=== PATIENT | male | born 1960 | race Caucasian/White ===

== ENCOUNTER 2017-03-11 19:20 | Emergency (ER) | payer MEDICARE, MEDICAID ==
--- NOTE | 2017-03-11 20:17 | EDM.PDOC ---
ED HPI GENERAL MEDICAL PROBLEM - General Chief Complaint: Chest Pain Stated Complaint: CHEST HURTS X3 DAYS, [id number] Time Seen by Provider: 03/11/17 20:10 Source of Information: Reports: Patient History Limitations: Reports: No Limitations - History of Present Illness INITIAL COMMENTS - FREE TEXT/NARRATIVE: This 56 yo male patient reports to the ED with chest pressure. The patient reports he started to feel sick about 2 weeks ago. The patient was seen in the clinic 1 week ago and given a Z-pack. The patient had no improvement in his symptoms with the antibiotics, so came into the ED tonight for continued evaluation and management. The patient has a history of an UT and CA. Onset: Gradual Duration: Week(s): (2), Constant, Getting Worse Location: Reports: Chest Quality: Reports: Pressure Severity: Moderate Improves with: Reports: None Worsens with: Reports: None Associated Symptoms: Reports: Cough, Shortness of Breath Anterior Chest Pain Score (Numeric/FACES): 5 - Related Data Allergies Allergy/AdvReac Type Severity Reaction Status Date / Time Penicillins Allergy Hives Verified 03/11/17 20:39 Home Meds: Home Meds Aspirin [Halfprin] 325 mg PO DAILY 01/30/14 [History] Montelukast [Singulair] 10 mg PO BEDTIME 01/30/14 [History] [place]-3 Fatty Acids [Fish Oil] 2,000 mg PO BID 01/30/14 [History] ALPRAZolam [Xanax] 0.5 mg PO BEDTIME 09/29/14 [History] Baclofen [Lioresal] 10 mg PO BIDMEALS 09/29/14 [History] Digoxin 1.5 tab PO DAILY 09/29/14 [History] Carvedilol [Carvedilol] 25 mg PO BID 12/23/14 [History] Losartan Potassium 25 mg PO DAILY 12/23/14 [History] Roflumilast [Daliresp] 500 mcg PO DAILY 12/23/14 [History] Arformoterol [Brovana] 15 mcg INH BID 11/28/15 [History] Budesonide [Pulmicort] 0.5 mg INH BID 11/28/15 [History] Isosorbide Mononitrate [Isosorbide Mononitrate ER] 30 mg PO DAILY 11/28/15 [ History] Mometasone Furoate [Nasonex] 2 sprays NASBOTH BID 11/28/15 [History] Nitroglycerin [Nitrostat] 0.4 mg SL ASDIRECTED 11/28/15 [History] Tiotropium [place] [Spiriva Respimat] 1 puff INH DAILY 11/28/15 [History] Topiramate [Topamax] 100 mg PO BEDTIME 11/28/15 [History] atorvaSTATin [Lipitor] 40 mg PO BEDTIME 11/28/15 [History] Amiodarone [Cordarone] 200 mg PO DAILY 07/02/16 [History] Past Medical History Cardiovascular History: Reports: Automatic Implantable Cardioverter Defibrillators, CAD, Hypertension, [place], Pacemaker, PTCA, Stents Respiratory History: Reports: COPD, Other (See Below) Other Respiratory History: lung mass to be biopsied this week. Other Endocrine/Metabolic History: states was told blood sugars are ? prediabetic - Past Surgical History Other Musculoskeletal Surgeries/Procedures:: states legs feel weak and unable to stand for long periods of time. Social & Family History - Tobacco Use Smoking Status *Q: Current Some Day Smoker Years of Tobacco use: 30 Packs/Tins Daily: 0.2 Used Tobacco, but Quit: No Month Tobacco Last Used: december Second Hand Smoke Exposure: Yes - Caffeine Use Caffeine Use: Reports: Coffee - Alcohol Use Days Per Week of Alcohol Use: 0 - Recreational Drug Use Recreational Drug Use: No ED ROS GENERAL - Review of Systems Review Of Systems: ROS reveals no pertinent complaints other than HPI. ED EXAM, GENERAL - Physical Exam Exam: See Below Exam Limited By: No Limitations General Appearance: Alert, WD/WN, Moderate Distress Eye Exam: Bilateral Eye: EOMI, Normal Inspection, PERRL Ears: Normal External Exam, Normal Canal, Hearing Grossly Normal, Normal TMs Nose: Normal Inspection, Normal Mucosa, No Blood Throat/Mouth: Normal Inspection, Normal Lips, Normal Teeth, Normal Gums, Normal Oropharynx, Normal Voice, No Airway Compromise Head: Atraumatic, Normocephalic Neck: Normal Inspection, Supple, Non-Tender, Full Range of Motion Respiratory/Chest: No Respiratory Distress, No Accessory Muscle Use, Chest Non- Tender, Rhonchi Cardiovascular: Normal Peripheral Pulses, Regular Rate, Rhythm, No Edema, No Gallop, No JVD, No Murmur, No Rub GI/Abdominal: Normal Bowel Sounds, Soft, Non-Tender, No Organomegaly, No Distention, No Abnormal Bruit, No Mass (Male) Exam: Deferred Rectal (Males) Exam: Deferred Back Exam: Normal Inspection, Full Range of Motion, NT Extremities: Normal Inspection, Normal Range of Motion, Non-Tender, Normal Capillary Refill, No Pedal Edema Neurological: Alert, Oriented, CN II-XII Intact, Normal Cognition, Normal Gait, Normal Reflexes, No Motor/Sensory Deficits Psychiatric: Normal Affect, Normal Mood Skin Exam: Warm, Dry, Intact, Normal Color, No Rash Lymphatic: No Adenopathy Course - Vital Signs Last Recorded V/S: Last Vital Signs Temp 37.0 C 03/11/17 20:40 Pulse 75 03/11/17 20:40 Resp 16 03/11/17 20:40 BP 115/69 03/11/17 20:40 Pulse Ox 94 L 03/11/17 20:40 - Orders/Labs/Meds Orders: Active Orders 24 hr Category Date Time Status EKG Documentation Completion [RC] STAT Care 03/11/17 20:01 Active cefTRIAXone [Rocephin] 1 gm Med 03/11/17 21:16 Ordered Sodium Chloride 0.9% [Normal Saline] 50 ml IV ONETIME Medication Orders Ceftriaxone Sodium 1 gm/ (Sodium Chloride) 50 mls @ 100 mls/hr IV ONETIME ONE Stop: 03/11/17 21:45 Labs: Laboratory Tests 03/11/17 03/11/17 Range/Units 20:12 20:12 WBC 5.8 (5.0-10.0) 10^3/uL RBC 3.99 L (4.6-6.2) 10^6/uL Hgb 13.1 L (14.0-18.0) g/dL Hct 38.0 L (40.0-54.0) % MCV 95.2 (80-100) fL MCH 32.8 (27.0-34.0) pg MCHC 34.5 (33.0-35.0) g/dL Plt Count 106 L (150-450) 10^3/uL Neut % (Auto) 56.8 (42.2-75.2) % Lymph % (Auto) 27.6 (20.5-50.1) % [place] % (Auto) 10.8 H (2-8) % Eos % (Auto) 4.3 H (1.0-3.0) % Baso % (Auto) 0.5 (0.0-1.0) % Sodium 136 (135-145) mmol/L Potassium 3.5 L (3.6-5.0) mmol/L Chloride 103 (101-111) mmol/L Carbon Dioxide 24.0 (21.0-31.0) mmol/L Anion Gap 12.5 BUN 12 (7-18) mg/dL Creatinine 0.9 (0.6-1.3) mg/dL Est Cr Clr Drug Dosing TNP Estimated GFR (MDRD) > 60 BUN/Creatinine Ratio 13.33 Glucose 78 (74-105) mg/dL Calcium 8.9 (8.4-10.2) mg/dl Total Bilirubin 0.6 (0.2-1.0) mg/dL AST 21 (10-42) IU/L ALT 30 (10-60) IU/L Alkaline Phosphatase 90 (42-121) IU/L Troponin I 0.02 (0.00-0.02) ng/ml Total Protein 6.6 L (6.7-8.2) g/dl Albumin 3.9 (3.2-5.5) g/dl Globulin 2.7 Albumin/Globulin Ratio 1.44 Meds: Medications Generic Name Dose Route Start Last Admin Trade Name Freq PRN Reason Stop Dose Admin Ceftriaxone Sodium 1 gm/ 50 mls @ 100 mls/hr 03/11/17 21:16 Sodium Chloride IV 03/11/17 21:45 ONETIME ONE Departure - Departure Time of Disposition: 21:19 Disposition: Home, Self-Care 01 Condition: fair Clinical Impression: Community acquired pneumonia Instructions: Community-Acquired Pneumonia, Adult, [id number] Forms: ED Department Discharge Care Plan Goals: The patient was advised of the examination, lab, EKG and x-ray results during the visit. The patient was given IV Rocephin while in the ED. The patient was discharged with a script for Keflex (500 mg) #20 to take 1 by mouth 2 times per day for 10 days. If the patient has any additional symptoms or concerns, the patient should follow-up with his primary care facility or return to the emergency department. - My Orders Last 24 Hours: My Active Orders 03/11/17 20:01 EKG Documentation Completion [RC] STAT 03/11/17 21:16 cefTRIAXone [Rocephin] 1 gm Sodium Chloride 0.9% [Normal Saline] 50 ml IV ONETIME - Assessment/Plan Last 24 Hours: My Active Orders 03/11/17 20:01 EKG Documentation Completion [RC] STAT 03/11/17 21:16 cefTRIAXone [Rocephin] 1 gm Sodium Chloride 0.9% [Normal Saline] 50 ml IV ONETIME
[2017-03-11 20:38] LABS: CHLORIDE,CL 103 mmol/L (101-111); SODIUM,NA 136 mmol/L (135-145)
[2017-03-11 20:41] VITALS: BP 115/69
[2017-03-11] MEDS ORDERED: cefTRIAXone 1 GM in Sodium Chloride 0.9% 50 ML IV ONE (21:16)
--- NOTE | 2017-03-12 14:54 | EKG ---
03/11/2017- ISAIAS STAPLES - EKG per my reading shows atrial paced rhythm with left bundle-branch block. [facility] /[id number]
== END 2017-03-11 21:51 | disposition home or self-care (01) ==
LOC: DL.ED 19:20
DX: J18.9 Pneumonia, unspecified organism (principal); F17.210 Nicotine dependence, cigarettes, uncomplicated; J44.9 Chronic obstructive pulmonary disease, unspecified; I25.810 Atherosclerosis of coronary artery bypass graft(s) without angina pectoris; Z95.0 Presence of cardiac pacemaker; Z79.82 Long term (current) use of aspirin; Z79.899 Other long term (current) drug therapy; Z88.0 Allergy status to penicillin; Z95.5 Presence of coronary angioplasty implant and graft
CPT/HCPCS: 36415; 71010; 80053; 84484; 85025; 93005; 93010; 96365; 99285; J0696; J7050; 99284

== ENCOUNTER 2017-09-29 20:18 | Emergency (ER) | payer MEDICARE, MEDICAID ==
[2017-09-29] MEDS ORDERED: Sodium Chloride 0.9% 1,000 ML IV ONE (20:33)
[2017-09-29 21:11] LABS: CHLORIDE,CL 103 mmol/L (101-111); SODIUM,NA 134 mmol/L (135-145)
[2017-09-29 21:41] VITALS: BP 96/71
--- NOTE | 2017-09-29 22:34 | EDM.PDOC ---
ED HPI GENERAL MEDICAL PROBLEM - General Chief Complaint: Gastrointestinal Problem Stated Complaint: PUKING,TEMP. [id number] Time Seen by Provider: 09/29/17 20:20 Source of Information: Reports: Patient, Family History Limitations: Reports: No Limitations - History of Present Illness INITIAL COMMENTS - FREE TEXT/NARRATIVE: C/O nausea vomiting with fever today. Lung CA with chemo- with Opdivo, patient notes has had 6 previous treatment without these symptoms. Fever since this afternoon with 100.8 [employer] reports calling chemo nurse and was told symptoms not from chemo and needed to be evaluated. - Related Data Allergies Allergy/AdvReac Type Severity Reaction Status Date / Time doxycycline Allergy Headache Verified 09/29/17 20:23 Penicillins Allergy Hives Verified 09/29/17 20:23 Home Meds: Home Meds Aspirin [Halfprin] 325 mg PO DAILY 01/30/14 [History] Montelukast [Singulair] 10 mg PO BEDTIME 01/30/14 [History] [place]-3 Fatty Acids [Fish Oil] 2,000 mg PO BID 01/30/14 [History] ALPRAZolam [Xanax] 0.5 mg PO BEDTIME 09/29/14 [History] Baclofen [Lioresal] 10 mg PO BIDMEALS 09/29/14 [History] Digoxin 1.5 tab PO DAILY 09/29/14 [History] Carvedilol [Carvedilol] 25 mg PO BID 12/23/14 [History] Losartan Potassium 25 mg PO DAILY 12/23/14 [History] Roflumilast [Daliresp] 500 mcg PO DAILY 12/23/14 [History] Arformoterol [Brovana] 15 mcg INH BID 11/28/15 [History] Budesonide [Pulmicort] 0.5 mg INH BID 11/28/15 [History] Isosorbide Mononitrate [Isosorbide Mononitrate ER] 30 mg PO DAILY 11/28/15 [ History] Mometasone Furoate [Nasonex] 2 sprays NASBOTH BID 11/28/15 [History] Nitroglycerin [Nitrostat] 0.4 mg SL ASDIRECTED 11/28/15 [History] Tiotropium [place] [Spiriva Respimat] 1 puff INH DAILY 11/28/15 [History] Topiramate [Topamax] 100 mg PO BEDTIME 11/28/15 [History] atorvaSTATin [Lipitor] 40 mg PO BEDTIME 11/28/15 [History] Amiodarone [Cordarone] 200 mg PO DAILY 07/02/16 [History] Past Medical History - Past Health History Medical/Surgical History: Denies Medical/Surgical History Cardiovascular History: Reports: Automatic Implantable Cardioverter Defibrillators, CAD, Hypertension, [place], Pacemaker, PTCA, Stents Respiratory History: Reports: COPD, Other (See Below) Other Respiratory History: lung mass to be biopsied this week. Other Endocrine/Metabolic History: states was told blood sugars are ? prediabetic Oncologic (Cancer) History: Reports: Lung - Past Surgical History Other Musculoskeletal Surgeries/Procedures:: states legs feel weak and unable to stand for long periods of time. Social & Family History - Tobacco Use Smoking Status *Q: Current Every Day Smoker Years of Tobacco use: 51 Packs/Tins Daily: 1.5 Used Tobacco, but Quit: No Month Tobacco Last Used: december Second Hand Smoke Exposure: Yes - Caffeine Use Caffeine Use: Reports: Coffee - Alcohol Use Days Per Week of Alcohol Use: 0 - Recreational Drug Use Recreational Drug Use: No ED ROS GENERAL - Review of Systems Review Of Systems: See Below Constitutional: Reports: Fever, Chills, Decreased Appetite HEENT: Reports: No Symptoms Respiratory: Reports: Shortness of Breath, Cough Cardiovascular: Reports: No Symptoms GI/Abdominal: Reports: Vomiting (multiple times since afternoon) : Reports: No Symptoms Musculoskeletal: Reports: No Symptoms Skin: Reports: No Symptoms Neurological: Reports: No Symptoms ED EXAM, RENAL/ - Physical Exam Exam: See Below Exam Limited By: No Limitations General Appearance: Alert, Mild Distress, Thin, Other (strong odor stale tobacco ) Eye Exam: Bilateral Eye: EOMI, Normal Fundi Ears: Normal External Exam Nose: Normal Inspection Throat/Mouth: Normal Inspection, Other (dry) Head: Atraumatic, Normocephalic Neck: Normal Inspection Respiratory/Chest: No Respiratory Distress, Decreased Breath Sounds Cardiovascular: Normal Peripheral Pulses, Regular Rate, Rhythm GI/Abdominal: Normal Bowel Sounds, Soft, Non-Tender Back Exam: Normal Inspection Extremities: Normal Inspection, Normal Range of Motion Neurological: Alert, Oriented, Normal Cognition, Other (unsteady, stand by assist) Psychiatric: Normal Affect, Normal Mood Skin Exam: Warm, Dry, Intact, No Rash, Increased Warmth. No: Erythema Course - Vital Signs Last Recorded V/S: Last Vital Signs Temp 99.1 F 09/29/17 21:40 Pulse 71 09/29/17 21:40 Resp 16 09/29/17 21:40 BP 96/71 09/29/17 21:40 Pulse Ox 96 09/29/17 21:40 - Orders/Labs/Meds Orders: Active Orders 24 hr Category Date Time Status EKG 12 Lead [EKG Documentation Completion] [RC] URGENT Care 09/29/17 20:24 Active CULTURE BLOOD [BC] Stat Lab 09/29/17 20:39 Received CULTURE BLOOD [BC] Stat Lab 09/29/17 20:53 Received Blood Culture x2 Reflex Set [OM.PC] Stat Oth 09/29/17 20:24 Ordered Labs: Laboratory Tests 09/29/17 09/29/17 09/29/17 Range/Units 20:39 20:39 20:39 WBC 9.4 (5.0-10.0) 10^3/uL RBC 4.63 (4.6-6.2) 10^6/uL Hgb 15.1 D (14.0-18.0) g/dL Hct 43.8 (40.0-54.0) % MCV 94.6 (80-100) fL MCH 32.6 (27.0-34.0) pg MCHC 34.5 (33.0-35.0) g/dL Plt Count 113 L (150-450) 10^3/uL Neut % (Auto) 89.7 H (42.2-75.2) % Lymph % (Auto) 3.9 L (20.5-50.1) % [place] % (Auto) 4.9 (2-8) % Eos % (Auto) 1.3 (1.0-3.0) % Baso % (Auto) 0.2 (0.0-1.0) % Sodium 134 L (135-145) mmol/L Potassium 3.8 (3.6-5.0) mmol/L Chloride 103 (101-111) mmol/L Carbon Dioxide 22.0 (21.0-31.0) mmol/L Anion Gap 12.8 BUN 17 (7-18) mg/dL Creatinine 1.0 (0.6-1.3) mg/dL Est Cr Clr Drug Dosing 89.46 mL/min Estimated GFR (MDRD) > 60 BUN/Creatinine Ratio 17.00 Glucose 95 (74-105) mg/dL Lactic Acid (0.5-2.2) mmol/L Calcium 9.0 (8.4-10.2) mg/dl Magnesium 1.9 (1.8-2.5) mg/dL Total Bilirubin 0.9 (0.2-1.0) mg/dL AST 26 (10-42) IU/L ALT 31 (10-60) IU/L Alkaline Phosphatase 81 (42-121) IU/L B-Natriuretic Peptide 135 H (0-100) pg/ml Total Protein 7.0 (6.7-8.2) g/dl Albumin 4.0 (3.2-5.5) g/dl Globulin 3.0 Albumin/Globulin Ratio 1.33 Amylase 34 (28-100) U/L Lipase 21 L (22-51) U/L Urine Color (YELLOW) Urine Appearance (CLEAR) Urine pH (5.0-9.0) Ur Specific [place] (1.005-1.030) Urine Protein (NEGATIVE) Urine Glucose (UA) (NEGATIVE) Urine Ketones (NEGATIVE) Urine Occult Blood (NEGATIVE) Urine Nitrite (NEGATIVE) Urine Bilirubin (NEGATIVE) Urine Urobilinogen (0.2-1.0) mg/dL Ur Leukocyte Esterase (NEGATIVE) Urine RBC /HPF Urine WBC (0-5/HPF) /HPF Ur Epithelial Cells /HPF Urine Bacteria (0-FEW/HPF) /HPF Digoxin 2.0 (0-2.5) ng/ml 09/29/17 09/29/17 Range/Units 20:39 21:37 WBC (5.0-10.0) 10^3/uL RBC (4.6-6.2) 10^6/uL Hgb (14.0-18.0) g/dL Hct (40.0-54.0) % MCV (80-100) fL MCH (27.0-34.0) pg MCHC (33.0-35.0) g/dL Plt Count (150-450) 10^3/uL Neut % (Auto) (42.2-75.2) % Lymph % (Auto) (20.5-50.1) % [place] % (Auto) (2-8) % Eos % (Auto) (1.0-3.0) % Baso % (Auto) (0.0-1.0) % Sodium (135-145) mmol/L Potassium (3.6-5.0) mmol/L Chloride (101-111) mmol/L Carbon Dioxide (21.0-31.0) mmol/L Anion Gap BUN (7-18) mg/dL Creatinine (0.6-1.3) mg/dL Est Cr Clr Drug Dosing mL/min Estimated GFR (MDRD) BUN/Creatinine Ratio Glucose (74-105) mg/dL Lactic Acid 0.8 (0.5-2.2) mmol/L Calcium (8.4-10.2) mg/dl Magnesium (1.8-2.5) mg/dL Total Bilirubin (0.2-1.0) mg/dL AST (10-42) IU/L ALT (10-60) IU/L Alkaline Phosphatase (42-121) IU/L B-Natriuretic Peptide (0-100) pg/ml Total Protein (6.7-8.2) g/dl Albumin (3.2-5.5) g/dl Globulin Albumin/Globulin Ratio Amylase (28-100) U/L Lipase (22-51) U/L Urine Color Yellow (YELLOW) Urine Appearance Slightly cloudy (CLEAR) Urine pH 8.0 (5.0-9.0) Ur Specific [place] 1.015 (1.005-1.030) Urine Protein Negative (NEGATIVE) Urine Glucose (UA) Negative (NEGATIVE) Urine Ketones Negative (NEGATIVE) Urine Occult Blood Negative (NEGATIVE) Urine Nitrite Negative (NEGATIVE) Urine Bilirubin Negative (NEGATIVE) Urine Urobilinogen 1.0 (0.2-1.0) mg/dL Ur Leukocyte Esterase Negative (NEGATIVE) Urine RBC 0-5 /HPF Urine WBC 0-5 (0-5/HPF) /HPF Ur Epithelial Cells Rare /HPF Urine Bacteria Rare (0-FEW/HPF) /HPF Digoxin (0-2.5) ng/ml Meds: Medications Discontinued Medications Generic Name Dose Route Start Last Admin Trade Name Freq PRN Reason Stop Dose Admin Sodium Chloride 1,000 mls @ 100 mls/hr 09/29/17 20:33 09/29/17 20:37 Normal Saline IV 09/30/17 06:32 100 mls/hr .BOLUS ONE Administration - Radiology Interpretation Free Text/Narrative:: CXR: No pneumonia Departure - Departure Time of Disposition: 22:34 Disposition: DC/Tfer to Acute Hospital 02 Condition: Undetermined Clinical Impression: Patient on antineoplastic chemotherapy regimen, COPD (chronic obstructive pulmonary disease) with chronic bronchitis Lung cancer Qualifiers: Laterality: unspecified laterality Lung location: unspecified part of lung Qualified Code(s): C34.90 - Malignant neoplasm of unspecified part of unspecified bronchus or lung Vomiting Qualifiers: Vomiting type: unspecified Vomiting Intractability: non-intractable Nausea presence: with nausea Qualified Code(s): R11.2 - Nausea with vomiting, unspecified - Discharge Information Referrals: PCP,Unobtain [Primary Care Provider] - Forms: ED Department Discharge - My Orders Last 24 Hours: My Active Orders 09/29/17 20:24 EKG 12 Lead [EKG Documentation Completion] [RC] URGENT Blood Culture x2 Reflex Set [OM.PC] Stat 09/29/17 20:39 CULTURE BLOOD [BC] Stat 09/29/17 20:53 CULTURE BLOOD [BC] Stat - Assessment/Plan Last 24 Hours: My Active Orders 09/29/17 20:24 EKG 12 Lead [EKG Documentation Completion] [RC] URGENT Blood Culture x2 Reflex Set [OM.PC] Stat 09/29/17 20:39 CULTURE BLOOD [BC] Stat 09/29/17 20:53 CULTURE BLOOD [BC] Stat
--- NOTE | 2017-09-30 11:32 | EKG ---
09/29/2017- ISAIAS STAPLES - EKG done on a 56-year-old male showing sinus rhythm, heart rate of 70 beats per minute, left bundle branch block noted, which is present from previous EKG. [facility] /[id number]
== END 2017-09-29 22:59 ==
LOC: DL.ED 20:18
DX: J44.9 Chronic obstructive pulmonary disease, unspecified (principal); C34.90 Malignant neoplasm of unspecified part of unspecified bronchus or lung; F17.210 Nicotine dependence, cigarettes, uncomplicated; Z88.1 Allergy status to other antibiotic agents; Z88.0 Allergy status to penicillin; Z79.82 Long term (current) use of aspirin; Z79.899 Other long term (current) drug therapy; R06.02 Shortness of breath
CPT/HCPCS: 36415; 71010; 80053; 80162; 81001; 82150; 83605; 83690; 83735; 83880; 85025; 87040; 87804; 93005; 93010; 96360; 96361; 99283; 99284; J7030

== ENCOUNTER 2017-10-17 12:07 | Emergency (ER) | payer MEDICARE, MEDICAID ==
[2017-10-17 12:39] VITALS: BP 99/65
[2017-10-17] MEDS ORDERED: Sodium Chloride 0.9% 1,000 ML IV ONE (12:55)
[2017-10-17] MEDS ORDERED: Metoclopramide 10 MG/2 ML SDV IVPUSH ONE (12:55)
--- NOTE | 2017-10-17 12:58 | EDM.PDOC ---
ED HPI GENERAL MEDICAL PROBLEM - General Chief Complaint: Respiratory Problem Stated Complaint: STILL NOT FELLING WELL Time Seen by Provider: 10/17/17 12:50 Source of Information: Reports: Patient History Limitations: Reports: No Limitations - History of Present Illness INITIAL COMMENTS - FREE TEXT/NARRATIVE: This 57 yo male patient reports to the ED with a continued cough, nausea/ vomiting, and generalized weakness. The patient reports he was seen in the [facility] on Wednesday and was started on antibiotics (omnicef). The patient has not been eating well due to not feeling well. The patient reports he was sent to [place] just after [place], but discharged in a short time. The patient reports he has not been feeling much better. The patient has a history of previous heart attacks and lung cancer. Duration: Week(s):, Constant, Getting Worse Location: Reports: Chest Severity: Moderate Improves with: Reports: None Worsens with: Reports: None Associated Symptoms: Reports: cough w sputum, Nausea/Vomiting, Shortness of Breath, Weakness Treatments FRY COOK: Reports: Other Medication(s) (Omnicef) Headache Pain Score (Numeric/FACES): 5 - Related Data Allergies Allergy/AdvReac Type Severity Reaction Status Date / Time doxycycline Allergy Headache Verified 10/17/17 12:25 Penicillins Allergy Hives Verified 10/17/17 12:25 Home Meds: Home Meds Aspirin [Halfprin] 325 mg PO DAILY 01/30/14 [History] Montelukast [Singulair] 10 mg PO BEDTIME 01/30/14 [History] [place]-3 Fatty Acids [Fish Oil] 2,000 mg PO BID 01/30/14 [History] ALPRAZolam [Xanax] 0.5 mg PO BEDTIME 09/29/14 [History] Digoxin 1.5 tab PO DAILY 09/29/14 [History] Carvedilol [Carvedilol] 25 mg PO BID 12/23/14 [History] Losartan Potassium 25 mg PO DAILY 12/23/14 [History] Roflumilast [Daliresp] 500 mcg PO DAILY 12/23/14 [History] Arformoterol [Brovana] 15 mcg INH BID 11/28/15 [History] Budesonide [Pulmicort] 0.5 mg INH BID 11/28/15 [History] Isosorbide Mononitrate [Isosorbide Mononitrate ER] 30 mg PO DAILY 11/28/15 [ History] Mometasone Furoate [Nasonex] 2 sprays NASBOTH BID 11/28/15 [History] Nitroglycerin [Nitrostat] 0.4 mg SL ASDIRECTED 11/28/15 [History] Tiotropium Early [Spiriva Respimat] 1 puff INH DAILY 11/28/15 [History] Topiramate [Topamax] 100 mg PO BEDTIME 11/28/15 [History] atorvaSTATin [Lipitor] 40 mg PO BEDTIME 11/28/15 [History] Amiodarone [Cordarone] 200 mg PO DAILY 07/02/16 [History] Benzonatate [Benzonatate] 200 mg PO ASDIRECTED PRN 10/17/17 [History] Cefdinir [Omnicef] 300 mg PO DAILY 10/17/17 [History] Ciprofloxacin/Dexamethasone [Ciprodex Otic Susp] 1 drop EARRT ASDIRECTED [History] Nivolumab [Opdivo] 0 mg ASDIRECTED 10/17/17 [History] methylPREDNISolone [Medrol] 1 tab PO ASDIRECTED 10/17/17 [History] Past Medical History - Past Health History Medical/Surgical History: Denies Medical/Surgical History HEENT History: Reports: Other (See Below) Other HEENT History: pusy fluid in right ear Cardiovascular History: Reports: Automatic Implantable Cardioverter Defibrillators, CAD, High Cholesterol, Hypertension, [place], Pacemaker, PTCA, Stents Respiratory History: Reports: COPD Other Respiratory History: lung cancer Other Endocrine/Metabolic History: states was told blood sugars are ? prediabetic Oncologic (Cancer) History: Reports: Lung - Infectious Disease History Infectious Disease History: Reports: Chicken Pox, Measles, Mumps, Shingles - Past Surgical History Other Musculoskeletal Surgeries/Procedures:: states legs feel weak and unable to stand for long periods of time. Social & Family History - Tobacco Use Smoking Status *Q: Current Every Day Smoker Years of Tobacco use: 52 Packs/Tins Daily: 1 Used Tobacco, but Quit: No Month Tobacco Last Used: december Second Hand Smoke Exposure: Yes - Caffeine Use Caffeine Use: Reports: Coffee - Alcohol Use Days Per Week of Alcohol Use: 0 - Recreational Drug Use Recreational Drug Use: No ED ROS GENERAL - Review of Systems Review Of Systems: ROS reveals no pertinent complaints other than HPI. ED EXAM, GENERAL - Physical Exam Exam: See Below Exam Limited By: No Limitations General Appearance: Alert, WD/WN, Moderate Distress Eye Exam: Bilateral Eye: EOMI, Normal Inspection, PERRL Ears: Normal External Exam, Normal Canal, Hearing Grossly Normal, Normal TMs Nose: Normal Inspection, Normal Mucosa, No Blood Throat/Mouth: Normal Inspection, Normal Lips, Normal Teeth, Normal Gums, Normal Oropharynx, Normal Voice, No Airway Compromise Head: Atraumatic, Normocephalic Neck: Normal Inspection, Supple, Non-Tender, Full Range of Motion Respiratory/Chest: Decreased Breath Sounds (throughout) Cardiovascular: Normal Peripheral Pulses, Regular Rate, Rhythm, No Edema, No Gallop, No JVD, No Murmur, No Rub GI/Abdominal: Normal Bowel Sounds, Soft, Non-Tender, No Organomegaly, No Distention, No Abnormal Bruit, No Mass (Male) Exam: Deferred Rectal (Males) Exam: Deferred Back Exam: Normal Inspection, Full Range of Motion, NT Extremities: Normal Inspection, Normal Range of Motion, Non-Tender, Normal Capillary Refill, No Pedal Edema Neurological: Alert, Oriented, CN II-XII Intact, Normal Cognition, Normal Gait, Normal Reflexes, No Motor/Sensory Deficits Psychiatric: Normal Affect, Normal Mood Skin Exam: Warm, Dry, Intact, Normal Color, No Rash Lymphatic: No Adenopathy Course - Vital Signs Last Recorded V/S: Last Vital Signs Temp 36.8 C 10/17/17 12:28 Pulse 76 10/17/17 12:28 Resp 20 10/17/17 12:28 BP 99/65 10/17/17 12:28 Pulse Ox 92 L 10/17/17 12:28 - Orders/Labs/Meds Orders: Active Orders 24 hr Category Date Time Status Chest 2V [CR] Urgent Exams 10/17/17 12:42 Taken CULTURE BLOOD [BC] Stat Lab 10/17/17 12:58 Received Sodium Chloride 0.9% [Normal Saline] 1,000 ml Med 10/17/17 12:55 Active IV .BOLUS cefTRIAXone [Rocephin] Med 10/17/17 13:48 Once 1 gm IVPUSH ONETIME ONE Medication Orders Sodium Chloride (Normal Saline) 1,000 mls @ 250 mls/hr IV .BOLUS ONE Stop: 10/17/17 16:54 Last Admin: 10/17/17 13:03 Dose: 250 mls/hr Labs: Laboratory Tests 10/17/17 10/17/17 10/17/17 Range/Units 12:58 12:58 12:58 WBC 6.6 (5.0-10.0) 10^3/uL RBC 4.47 L (4.6-6.2) 10^6/uL Hgb 14.5 (14.0-18.0) g/dL Hct 41.9 (40.0-54.0) % MCV 93.7 (80-100) fL MCH 32.4 (27.0-34.0) pg MCHC 34.6 (33.0-35.0) g/dL Plt Count 107 L (150-450) 10^3/uL Neut % (Auto) 80.2 H (42.2-75.2) % Lymph % (Auto) 8.2 L (20.5-50.1) % [place] % (Auto) 10.9 H (2-8) % Eos % (Auto) 0.2 L (1.0-3.0) % Baso % (Auto) 0.5 (0.0-1.0) % Sodium 130 L (135-145) mmol/L Potassium 4.0 (3.6-5.0) mmol/L Chloride 99 L (101-111) mmol/L Carbon Dioxide 21.0 (21.0-31.0) mmol/L Anion Gap 14.0 BUN 11 (7-18) mg/dL Creatinine 0.9 (0.6-1.3) mg/dL Est Cr Clr Drug Dosing TNP Estimated GFR (MDRD) > 60 BUN/Creatinine Ratio 12.22 Glucose 90 (74-105) mg/dL Lactic Acid 0.9 (0.5-2.2) mmol/L Calcium 9.1 (8.4-10.2) mg/dl Total Bilirubin 0.7 (0.2-1.0) mg/dL AST 31 (10-42) IU/L ALT 32 (10-60) IU/L Alkaline Phosphatase 75 (42-121) IU/L Total Protein 7.1 (6.7-8.2) g/dl Albumin 3.9 (3.2-5.5) g/dl Globulin 3.2 Albumin/Globulin Ratio 1.22 Meds: Medications Generic Name Dose Route Start Last Admin Trade Name Lonnieq PRN Reason Stop Dose Admin Sodium Chloride 1,000 mls @ 250 mls/hr 10/17/17 12:55 10/17/17 13:03 Normal Saline IV 10/17/17 16:54 250 mls/hr .BOLUS ONE Administration Discontinued Medications Generic Name Dose Route Start Last Admin Trade Name Lonnieq PRN Reason Stop Dose Admin Metoclopramide HCl 10 mg 10/17/17 12:55 10/17/17 13:04 Reglan IVPUSH 10/17/17 12:56 10 mg ONETIME ONE Administration Departure - Departure Time of Disposition: 13:49 Disposition: Home, Self-Care 01 Condition: Fair Clinical Impression: Bronchitis, COPD (chronic obstructive pulmonary disease) with chronic bronchitis - Discharge Information Instructions: Chronic Obstructive Pulmonary Disease Exacerbation, [id number] , Acute Bronchitis, [id number] Forms: ED Department Discharge Care Plan Goals: The patient and friend were advised of the examination, lab and x-ray results during the visit. The patient was given an IV dose of Rocephin and Zofran while in the ED. The patient was encouraged to take his antibiotic (Omnicef), steroid (Medrol Dose Pack) and Tesalon Pearls as directed. If the patient has any additional symptoms or concerns, the patient should visit his primary care facility or return to the emergency department. - My Orders Last 24 Hours: My Active Orders 10/17/17 12:42 Chest 2V [CR] Urgent 10/17/17 12:55 Sodium Chloride 0.9% [Normal Saline] 1,000 ml IV .BOLUS 10/17/17 12:58 CULTURE BLOOD [BC] Stat 10/17/17 13:48 cefTRIAXone [Rocephin] 1 gm IVPUSH ONETIME ONE - Assessment/Plan Last 24 Hours: My Active Orders 10/17/17 12:42 Chest 2V [CR] Urgent 10/17/17 12:55 Sodium Chloride 0.9% [Normal Saline] 1,000 ml IV .BOLUS 10/17/17 12:58 CULTURE BLOOD [BC] Stat 10/17/17 13:48 cefTRIAXone [Rocephin] 1 gm IVPUSH ONETIME ONE
[2017-10-17 13:28] LABS: CHLORIDE,CL 99 mmol/L (101-111); SODIUM,NA 130 mmol/L (135-145)
[2017-10-17] MEDS ORDERED: cefTRIAXone 1 GM Vial IVPUSH ONE (13:48)
== END 2017-10-17 14:07 | disposition home or self-care (01) ==
LOC: DL.ED 12:07
DX: J44.9 Chronic obstructive pulmonary disease, unspecified (principal); F17.210 Nicotine dependence, cigarettes, uncomplicated; Z88.8 Allergy status to other drugs, medicaments and biological substances; Z88.0 Allergy status to penicillin; Z79.82 Long term (current) use of aspirin; Z79.899 Other long term (current) drug therapy
CPT/HCPCS: 36415; 71046; 80053; 83605; 85025; 87040; 87804; 96361; 96374; 96375; 99284; J0696; J2765; J7030

== ENCOUNTER 2017-11-27 21:58 | Emergency (ER) | payer MEDICARE, MEDICAID ==
[2017-11-27] MEDS ORDERED: Acetaminophen/HYDROcodone 325-5 MG Tab PO ONE (22:40)
--- NOTE | 2017-11-27 22:46 | EDM.PDOC ---
ED HPI GENERAL MEDICAL PROBLEM - General Chief Complaint: Lower Extremity Injury/Pain Stated Complaint: FEET PAIN [phone] Time Seen by Provider: 11/27/17 22:38 Source of Information: Reports: Patient History Limitations: Reports: No Limitations - History of Present Illness INITIAL COMMENTS - FREE TEXT/NARRATIVE: Patient comes emergency Department today with complaints of bilateral foot pain. Over the past 2 days the patient has complained of the development of arthritis type pain in both of his feet that radiates up to mid tib-fib region bilaterally. He denies any recent falls or trauma to the area. He denies any past history of gout. He is currently being treated with chemotherapy for lung cancer. He recently received his third round of chemotherapy approximately 1 week ago. Continue Neupogen a couple of days ago due to low platelets and white count. He denies any fever or chills. He denies any pain in his calf. He denies any numbness or tingling. He has been taking some Tylenol which really has not done much for his pain topical icy hot or BenGay has helped quite a bit with his pain. He denies any aches or pains in his femur pelvis back or arms. Bilateral Feet Pain Score (Numeric/FACES): 8 - Related Data Allergies Allergy/AdvReac Type Severity Reaction Status Date / Time doxycycline Allergy Headache Verified 11/27/17 22:41 Penicillins Allergy Hives Verified 11/27/17 22:41 Home Meds: Home Meds Aspirin [Halfprin] 325 mg PO DAILY 01/30/14 [History] Montelukast [Singulair] 10 mg PO BEDTIME 01/30/14 [History] [place]-3 Fatty Acids [Fish Oil] 2,000 mg PO BID 01/30/14 [History] ALPRAZolam [Xanax] 0.5 mg PO BEDTIME 09/29/14 [History] Digoxin 1.5 tab PO DAILY 09/29/14 [History] Carvedilol [Carvedilol] 25 mg PO BID 12/23/14 [History] Losartan Potassium 25 mg PO DAILY 12/23/14 [History] Roflumilast [Daliresp] 500 mcg PO DAILY 12/23/14 [History] Arformoterol [Brovana] 15 mcg INH BID 11/28/15 [History] Budesonide [Pulmicort] 0.5 mg INH BID 11/28/15 [History] Isosorbide Mononitrate [Isosorbide Mononitrate ER] 30 mg PO DAILY 11/28/15 [ History] Mometasone Furoate [Nasonex] 2 sprays NASBOTH BID 11/28/15 [History] Nitroglycerin [Nitrostat] 0.4 mg SL ASDIRECTED 11/28/15 [History] Tiotropium Isom [Spiriva Respimat] 1 puff INH DAILY 11/28/15 [History] Topiramate [Topamax] 100 mg PO BEDTIME 11/28/15 [History] atorvaSTATin [Lipitor] 40 mg PO BEDTIME 11/28/15 [History] Amiodarone [Cordarone] 200 mg PO DAILY 07/02/16 [History] Benzonatate [Benzonatate] 200 mg PO ASDIRECTED PRN 10/17/17 [History] Cefdinir [Omnicef] 300 mg PO DAILY 10/17/17 [History] Ciprofloxacin/Dexamethasone [Ciprodex Otic Susp] 1 drop EARRT ASDIRECTED [History] Nivolumab [Opdivo] 0 mg ASDIRECTED 10/17/17 [History] methylPREDNISolone [Medrol] 1 tab PO ASDIRECTED 10/17/17 [History] Past Medical History - Past Health History Medical/Surgical History: Denies Medical/Surgical History HEENT History: Reports: Other (See Below) Other HEENT History: pusy fluid in right ear Cardiovascular History: Reports: Automatic Implantable Cardioverter Defibrillators, CAD, High Cholesterol, Hypertension, [place], Pacemaker, PTCA, Stents Respiratory History: Reports: COPD Other Respiratory History: lung cancer Other Endocrine/Metabolic History: states was told blood sugars are ? prediabetic Oncologic (Cancer) History: Reports: Lung - Infectious Disease History Infectious Disease History: Reports: Chicken Pox, Measles, Mumps, Shingles - Past Surgical History Other Musculoskeletal Surgeries/Procedures:: states legs feel weak and unable to stand for long periods of time. Social & Family History - Tobacco Use Smoking Status *Q: Current Every Day Smoker Years of Tobacco use: 52 Packs/Tins Daily: 1 Used Tobacco, but Quit: No Month Tobacco Last Used: december Second Hand Smoke Exposure: Yes - Caffeine Use Caffeine Use: Reports: Coffee - Alcohol Use Days Per Week of Alcohol Use: 0 - Recreational Drug Use Recreational Drug Use: No Review of Systems - Review of Systems Review Of Systems: ROS reveals no pertinent complaints other than HPI. ED EXAM, GENERAL - Physical Exam Exam: See Below Exam Limited By: No Limitations General Appearance: Alert, WD/WN, Mild Distress Respiratory/Chest: No Respiratory Distress, Lungs Clear Cardiovascular: Normal Peripheral Pulses, Regular Rate, Rhythm Peripheral Pulses: 2+: Radial (L), Radial (R), Posterior Tibial (L), Posterior Tibial (R), Dorsalis Pedis (L), Dorsalis Pedis (R) GI/Abdominal: Normal Bowel Sounds, Soft (Male) Exam: Deferred Rectal (Males) Exam: Deferred Back Exam: Normal Inspection, Full Range of Motion. No: CVA Tenderness (L), CVA Tenderness (R), Decreased Range of Motion, Muscle Spasm Extremities: Normal Inspection, Normal Range of Motion, Normal Capillary Refill. No: Non-Tender (He has generalized tenderness throughout bilateral lower extremities. There is no bruising swelling ecchymosis erythema induration subcutaneous emphysema bony deformity of either of his lower extremities from the knee down. There is no swelling or induration or open areas of his skin. Rather unremarkable lower extremity other than generalized tenderness of the lower extremities.) Course - Vital Signs Last Recorded V/S: Last Vital Signs Temp 37.4 C 11/27/17 22:03 Pulse 88 11/27/17 22:03 Resp 18 11/27/17 22:03 BP 107/56 L 11/27/17 22:03 Pulse Ox 98 11/27/17 22:03 - Orders/Labs/Meds Labs: Laboratory Tests 11/27/17 11/27/17 Range/Units 22:45 22:45 WBC 16.0 H (5.0-10.0) 10^3/uL RBC 4.08 L (4.6-6.2) 10^6/uL Hgb 13.3 L (14.0-18.0) g/dL Hct 38.8 L (40.0-54.0) % MCV 95.1 (80-100) fL MCH 32.6 (27.0-34.0) pg MCHC 34.3 (33.0-35.0) g/dL Plt Count 112 L (150-450) 10^3/uL Neut % (Auto) 82.7 H (42.2-75.2) % Lymph % (Auto) 10.6 L (20.5-50.1) % [place] % (Auto) 4.9 (2-8) % Eos % (Auto) 1.2 (1.0-3.0) % Baso % (Auto) 0.6 (0.0-1.0) % Add Manual Diff Yes Immature Gran # 15 Absolute Seg Neuts 53 Band Neutrophils # 13 Lymphocytes # (Manual) 12 Monocytes # (Manual) 5 Eosinophils # (Manual) 2 Basophils # (Manual) 0 Platelet Estimate Decreased Anisocytosis 1+ slight Sodium 138 (135-145) mmol/L Potassium 3.8 (3.6-5.0) mmol/L Chloride 104 (101-111) mmol/L Carbon Dioxide 27.0 (21.0-31.0) mmol/L Anion Gap 10.8 BUN 14 (7-18) mg/dL Creatinine 1.0 (0.6-1.3) mg/dL Est Cr Clr Drug Dosing 88.38 mL/min Estimated GFR (MDRD) > 60 BUN/Creatinine Ratio 14.00 Glucose 110 H (74-105) mg/dL Uric Acid 5.1 (2.6-7.2) mg/dL Calcium 8.8 (8.4-10.2) mg/dl Total Bilirubin 0.3 (0.2-1.0) mg/dL AST 30 (10-42) IU/L ALT 33 (10-60) IU/L Alkaline Phosphatase 82 (42-121) IU/L Total Protein 6.4 L (6.7-8.2) g/dl Albumin 3.6 (3.2-5.5) g/dl Globulin 2.8 Albumin/Globulin Ratio 1.29 Meds: Medications Discontinued Medications Generic Name Dose Route Start Last Admin Trade Name Freq PRN Reason Stop Dose Admin Hydrocodone Bitart/Acetaminophen 1 tab 11/27/17 22:40 11/27/17 22:48 [place] 325-5 Mg PO 11/27/17 22:41 1 tab ONETIME ONE Administration Gabapentin 300 mg 11/28/17 00:18 11/28/17 00:49 Neurontin PO 11/28/17 00:19 300 mg ONETIME ONE Administration Hydromorphone HCl 1 mg 11/28/17 00:18 11/28/17 00:39 Dilaudid IM 11/28/17 00:19 1 mg ONETIME ONE Administration - Re-Assessments/Exams Free Text/Narrative Re-Assessment/Exam: 11/27/17 22:44 Did explain to the patient that this could be the development of peripheral neuropathy from his chemotherapy. It also could be a hyperuricemic state from his chemotherapy. We will check a couple labs and give him something for pain. 11/28/17 01:17 Hydrocodone without improvement of pain. Dilaudid 1mg IM and Neurontin 300mg PO. with complete resolution of the pain. I explained to the patient that his neuropathy is most likely due to either his chemotherapy or his cancer. It is highly important for him to visit with his primary oncologist on Wednesday due to this new development. I will give him some Neurontin and hydrocodone for pain until that time. Caution sedation especially with these 2 mixed together. He was comfortable with this plan and his questions were answered. Departure - Departure Time of Disposition: 01:14 Disposition: Home, Self-Care 01 Clinical Impression: Neuropathy associated with cancer - Discharge Information Instructions: Neuropathic Pain Forms: ED Department Discharge Additional Instructions: Tylenol as needed for pain. [place], 5/325, 1 tablet every 4-6 hrs prn pain not controlled with above. Caution sedation RX given to the patient. Neurontin, 300mg, 1 tablet twice aday for 1 day, then three times aday as needed for neuropathy in the lower extremities. CAUTION SEDATION. Contact your oncologist on wednesday and update them on the new concerns of neuropathy in your lower extremities. REturn to the ED if new or worsening symptoms. 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 Plan: Tylenol as needed for pain. [place], 5/325, 1 tablet every 4-6 hrs prn pain not controlled with above. Caution sedation RX given to the patient. Neurontin, 300mg, 1 tablet twice aday for 1 day, then three times aday as needed for neuropathy in the lower extremities. CAUTION SEDATION. Contact your oncologist on wednesday and update them on the new concerns of neuropathy in your lower extremities. REturn to the ED if new or worsening symptoms.
[2017-11-27 23:14] LABS: CHLORIDE,CL 104 mmol/L (101-111); SODIUM,NA 138 mmol/L (135-145)
[2017-11-28] MEDS ORDERED: HYDROmorphone 1 MG/ML Syringe IM ONE (00:18)
[2017-11-28] MEDS ORDERED: Gabapentin 300 MG Cap PO ONE (00:18)
[2017-11-28 01:21] VITALS: BP 100/59
== END 2017-11-28 01:25 | disposition home or self-care (01) ==
LOC: DL.ED 21:58
DX: G62.9 Polyneuropathy, unspecified (principal); C34.90 Malignant neoplasm of unspecified part of unspecified bronchus or lung; I10 Essential (primary) hypertension; I25.10 Atherosclerotic heart disease of native coronary artery without angina pectoris; E78.00 Pure hypercholesterolemia, unspecified; J44.9 Chronic obstructive pulmonary disease, unspecified; F17.210 Nicotine dependence, cigarettes, uncomplicated; Z95.810 Presence of automatic (implantable) cardiac defibrillator; Z79.2 Long term (current) use of antibiotics; Z79.82 Long term (current) use of aspirin; Z79.899 Other long term (current) drug therapy; Z88.0 Allergy status to penicillin; Z88.1 Allergy status to other antibiotic agents
CPT/HCPCS: 36415; 80053; 84550; 85025; 96372; 99283; A9270; J1170

== ENCOUNTER 2017-12-11 21:57 | Emergency (ER) | payer MEDICARE, MEDICAID ==
[2017-12-11] MEDS ORDERED: Acetaminophen/oxyCODONE 325-5 MG Tab PO ONE (21:58)
[2017-12-11] MEDS ORDERED: Gabapentin 300 MG Cap PO ONE (21:58)
[2017-12-11 22:13] VITALS: BP 113/73
[2017-12-12 00:22] LABS: CHLORIDE,CL 104 mmol/L (101-111); SODIUM,NA 134 mmol/L (135-145)
[2017-12-12] MEDS ORDERED: Morphine 2 MG/ML Syringe SUBCUT ONE (00:54)
[2017-12-12] MEDS ORDERED: Gabapentin 300 MG Cap PO ONE (00:56)
--- NOTE | 2017-12-12 00:57 | EDM.PDOC ---
ED HPI GENERAL MEDICAL PROBLEM - General Chief Complaint: Lower Extremity Injury/Pain Stated Complaint: FOOT PROBLEM [id number] Time Seen by Provider: 12/11/17 22:30 Source of Information: Reports: Patient, Family, RN Notes Reviewed History Limitations: Reports: No Limitations - History of Present Illness INITIAL COMMENTS - FREE TEXT/NARRATIVE: ED with c/o bilateral leg pain below knees worsening today. Notes pain starting after receiving "immune booster" 2 days ago. Had similar experience last time he had this shot. Patient hx of Lung Cancer and undergoing chemo at present. Hx also COPD and No change in senasation, no fever or chills. Has not noted any weakness. States has a difficult time sleeping anyway and pain is making it impossible. 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 Bilateral Lower Leg Pain Score (Numeric/FACES): 8 - Related Data Allergies Allergy/AdvReac Type Severity Reaction Status Date / Time doxycycline Allergy Headache Verified 12/11/17 22:13 Penicillins Allergy Hives Verified 12/11/17 22:13 Home Meds: Home Meds Aspirin [Halfprin] 325 mg PO DAILY 01/30/14 [History] Montelukast [Singulair] 10 mg PO BEDTIME 01/30/14 [History] [place]-3 Fatty Acids [Fish Oil] 2,000 mg PO BID 01/30/14 [History] ALPRAZolam [Xanax] 0.5 mg PO BEDTIME 09/29/14 [History] Digoxin 1.5 tab PO DAILY 09/29/14 [History] Carvedilol [Carvedilol] 25 mg PO BID 12/23/14 [History] Losartan Potassium 25 mg PO DAILY 12/23/14 [History] Roflumilast [Daliresp] 500 mcg PO DAILY 12/23/14 [History] Arformoterol [Brovana] 15 mcg INH BID 11/28/15 [History] Budesonide [Pulmicort] 0.5 mg INH BID 11/28/15 [History] Isosorbide Mononitrate [Isosorbide Mononitrate ER] 30 mg PO DAILY 11/28/15 [ History] Mometasone Furoate [Nasonex] 2 sprays NASBOTH BID 11/28/15 [History] Nitroglycerin [Nitrostat] 0.4 mg SL ASDIRECTED 11/28/15 [History] Tiotropium [place] [Spiriva Respimat] 1 puff INH DAILY 11/28/15 [History] Topiramate [Topamax] 100 mg PO BEDTIME 11/28/15 [History] atorvaSTATin [Lipitor] 40 mg PO BEDTIME 11/28/15 [History] Amiodarone [Cordarone] 200 mg PO DAILY 07/02/16 [History] Benzonatate [Benzonatate] 200 mg PO ASDIRECTED PRN 10/17/17 [History] Cefdinir [Omnicef] 300 mg PO DAILY 10/17/17 [History] Ciprofloxacin/Dexamethasone [Ciprodex Otic Susp] 1 drop EARRT ASDIRECTED [History] Nivolumab [Opdivo] 0 mg ASDIRECTED 10/17/17 [History] methylPREDNISolone [Medrol] 1 tab PO ASDIRECTED 10/17/17 [History] Past Medical History - Past Health History Medical/Surgical History: Denies Medical/Surgical History HEENT History: Reports: Other (See Below) Other HEENT History: pusy fluid in right ear Cardiovascular History: Reports: Automatic Implantable Cardioverter Defibrillators, CAD, High Cholesterol, Hypertension, [place], Pacemaker, PTCA, Stents Respiratory History: Reports: COPD Other Respiratory History: lung cancer Other Endocrine/Metabolic History: states was told blood sugars are ? prediabetic Oncologic (Cancer) History: Reports: Lung - Infectious Disease History Infectious Disease History: Reports: Chicken Pox, Measles, Mumps, Shingles - Past Surgical History Other Musculoskeletal Surgeries/Procedures:: states legs feel weak and unable to stand for long periods of time. Social & Family History - Tobacco Use Smoking Status *Q: Current Every Day Smoker Years of Tobacco use: 52 Packs/Tins Daily: 10 Used Tobacco, but Quit: No Month Tobacco Last Used: december Second Hand Smoke Exposure: Yes - Caffeine Use Caffeine Use: Reports: Coffee, Soda - Alcohol Use Days Per Week of Alcohol Use: 0 - Recreational Drug Use Recreational Drug Use: No Review of Systems - Review of Systems Review Of Systems: ROS reveals no pertinent complaints other than HPI. ED EXAM, GENERAL - Physical Exam Exam: See Below Exam Limited By: No Limitations General Appearance: Alert, Mild Distress Eye Exam: Bilateral Eye: EOMI Ears: Normal External Exam, Normal TMs Nose: Normal Inspection, Clear Rhinorrhea Throat/Mouth: Normal Inspection, Normal Lips, Normal Voice Head: Atraumatic, Normocephalic Neck: Normal Inspection, Supple, Non-Tender, Full Range of Motion Respiratory/Chest: No Respiratory Distress, Lungs Clear Cardiovascular: Normal Peripheral Pulses, Regular Rate, Rhythm, No Edema Peripheral Pulses: 2+: Posterior Tibial (L), Posterior Tibial (R), Dorsalis Pedis (L), Dorsalis Pedis (R) GI/Abdominal: Normal Bowel Sounds, Soft Back Exam: Full Range of Motion Extremities: Normal Inspection, Leg Pain (bilateral lower lega pain with palpation, anterior and posterior, greater on jose david area.). No: Pedal Edema, Mottled, Pallor, Redness Neurological: Alert, Oriented, Normal Cognition Psychiatric: Flat Affect Skin Exam: Warm, Dry, Intact, Normal Color. No: Erythema, Jaundice, Petechiae, Rash Course - Vital Signs Last Recorded V/S: Last Vital Signs Temp 99.3 F 12/11/17 22:05 Pulse 84 12/11/17 22:05 Resp 17 12/11/17 22:05 BP 113/73 12/11/17 22:05 Pulse Ox 100 12/11/17 22:05 - Orders/Labs/Meds Labs: Laboratory Tests 12/11/17 12/11/17 Range/Units 23:55 23:55 WBC 29.7 H* (5.0-10.0) 10^3/uL RBC 3.65 L (4.6-6.2) 10^6/uL Hgb 12.1 L (14.0-18.0) g/dL Hct 35.9 L (40.0-54.0) % MCV 98.4 D (80-100) fL MCH 33.2 (27.0-34.0) pg MCHC 33.7 (33.0-35.0) g/dL Plt Count 96 L (150-450) 10^3/uL Add Manual Diff Yes Neutrophils % (Manual) 32 L (42-75) % Band Neutrophils % 0 % Lymphocytes % (Manual) 4 L (20-50) % Atypical Lymphs % 0 % Monocytes % (Manual) 1 L (2-8) % Eosinophils % (Manual) 1 (1-3) % Basophils % (Manual) 0 Differential Comment Platelet Estimate Decreased Poikilocytosis 1+ slight Sodium 134 L (135-145) mmol/L Potassium 4.2 (3.6-5.0) mmol/L Chloride 104 (101-111) mmol/L Carbon Dioxide 22.0 (21.0-31.0) mmol/L Anion Gap 12.2 BUN 19 H (7-18) mg/dL Creatinine 0.9 (0.6-1.3) mg/dL Est Cr Clr Drug Dosing 98.20 mL/min Estimated GFR (MDRD) > 60 BUN/Creatinine Ratio 21.11 Glucose 114 H (74-105) mg/dL Calcium 8.8 (8.4-10.2) mg/dl Total Bilirubin 0.7 (0.2-1.0) mg/dL AST 29 (10-42) IU/L ALT 24 (10-60) IU/L Alkaline Phosphatase 84 (42-121) IU/L Total Protein 6.0 L (6.7-8.2) g/dl Albumin 3.3 (3.2-5.5) g/dl Globulin 2.7 Albumin/Globulin Ratio 1.22 Meds: Medications Discontinued Medications Generic Name Dose Route Start Last Admin Trade Name Pedro PRN Reason Stop Dose Admin Gabapentin 300 mg 12/12/17 00:56 12/12/17 01:10 Neurontin PO 12/12/17 00:57 300 mg ONETIME ONE Administration Gabapentin Confirm 12/12/17 01:11 Neurontin Administered 12/12/17 01:12 Dose 300 mg .ROUTE .STK-MED ONE Morphine Sulfate 2 mg 12/12/17 00:54 12/12/17 01:10 Morphine SUBCUT 12/12/17 00:55 2 mg ONETIME ONE Administration Oxycodone/Acetaminophen Confirm 12/12/17 01:07 Percocet 325-5 Mg Administered 12/12/17 01:08 Dose 2 tab .ROUTE .STK-MED ONE Departure - Departure Time of Disposition: 00:57 Disposition: Home, Self-Care 01 Condition: Fair Clinical Impression: Lower extremity pain, bilateral, Neuropathy associated with cancer, Patient on antineoplastic chemotherapy regimen Lung cancer Qualifiers: Laterality: unspecified laterality Lung location: unspecified part of lung Qualified Code(s): C34.90 - Malignant neoplasm of unspecified part of unspecified bronchus or lung - Discharge Information Instructions: Peripheral Neuropathy Referrals: Titi Ruano NP [Primary Care Provider] - Forms: ED Department Discharge Additional Instructions: oxycodone 5/325 one every 6 hours as needed for severe leg pain #12 Neurontin 300mg one three times daily #15 Clinic follow up on Wednesday
[2017-12-12] MEDS ORDERED: Acetaminophen/oxyCODONE 325-5 MG Tab ONE (01:07)
[2017-12-12] MEDS ORDERED: Gabapentin 300 MG Cap ONE (01:11)
== END 2017-12-12 01:28 | disposition home or self-care (01) ==
LOC: DL.ED 21:57
DX: G89.3 Neoplasm related pain (acute) (chronic) (principal); C34.90 Malignant neoplasm of unspecified part of unspecified bronchus or lung; G62.9 Polyneuropathy, unspecified; M79.661 Pain in right lower leg; M79.662 Pain in left lower leg; J44.9 Chronic obstructive pulmonary disease, unspecified; I25.10 Atherosclerotic heart disease of native coronary artery without angina pectoris; E78.00 Pure hypercholesterolemia, unspecified; I25.2 Old myocardial infarction; Z95.0 Presence of cardiac pacemaker; Z95.5 Presence of coronary angioplasty implant and graft; F17.210 Nicotine dependence, cigarettes, uncomplicated; Z88.0 Allergy status to penicillin; Z88.8 Allergy status to other drugs, medicaments and biological substances; Z79.82 Long term (current) use of aspirin; Z79.899 Other long term (current) drug therapy; Z95.810 Presence of automatic (implantable) cardiac defibrillator
CPT/HCPCS: 36415; 80053; 85025; 96372; 99283; A9270; J2270

== ENCOUNTER 2017-12-28 21:20 | Emergency (ER) | payer MEDICARE, MEDICAID ==
[2017-12-28] MEDS ORDERED: Gabapentin 300 MG Cap PO ONE (23:13)
[2017-12-28] MEDS ORDERED: HYDROmorphone 0.5 MG/0.5 ML Syringe IM ONE (23:13)
--- NOTE | 2017-12-28 23:15 | EDM.PDOC ---
ED HPI GENERAL MEDICAL PROBLEM - General Chief Complaint: Lower Extremity Injury/Pain Stated Complaint: [id number] LEGS AND FEET PAIN Time Seen by Provider: 12/28/17 23:05 Source of Information: Reports: Patient, Family, RN, RN Notes Reviewed History Limitations: Reports: No Limitations - History of Present Illness INITIAL COMMENTS - FREE TEXT/NARRATIVE: Patient presents to the ER with c/o bilateral leg pain. He states he is here for "the same thing he always is". He states he recently had chemotherapy and his legs have began to hurt severely. He states he was also taking gabapentin and he has run out of these. Patient states he has no further problems at this time. 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 Bilateral Feet Pain Score (Numeric/FACES): 6 - Related Data Allergies Allergy/AdvReac Type Severity Reaction Status Date / Time doxycycline Allergy Headache Verified 12/28/17 21:40 Penicillins Allergy Hives Verified 12/28/17 21:40 Home Meds: Home Meds Aspirin [Halfprin] 325 mg PO DAILY 01/30/14 [History] Montelukast [Singulair] 10 mg PO BEDTIME 01/30/14 [History] [place]-3 Fatty Acids [Fish Oil] 2,000 mg PO BID 01/30/14 [History] ALPRAZolam [Xanax] 0.5 mg PO BEDTIME 09/29/14 [History] Digoxin 1.5 tab PO DAILY 09/29/14 [History] Carvedilol 25 mg PO BID 12/23/14 [History] Losartan Potassium 25 mg PO DAILY 12/23/14 [History] Roflumilast [Daliresp] 500 mcg PO DAILY 12/23/14 [History] Arformoterol [Brovana] 15 mcg INH BID 11/28/15 [History] Budesonide [Pulmicort] 0.5 mg INH BID 11/28/15 [History] Isosorbide Mononitrate [Isosorbide Mononitrate ER] 30 mg PO DAILY 11/28/15 [ History] Mometasone Furoate [Nasonex] 2 sprays NASBOTH BID 11/28/15 [History] Nitroglycerin [Nitrostat] 0.4 mg SL ASDIRECTED 11/28/15 [History] Tiotropium [place] [Spiriva Respimat] 1 puff INH DAILY 11/28/15 [History] Topiramate [Topamax] 100 mg PO BEDTIME 11/28/15 [History] atorvaSTATin [Lipitor] 40 mg PO BEDTIME 11/28/15 [History] Amiodarone [Cordarone] 200 mg PO DAILY 07/02/16 [History] Benzonatate 200 mg PO ASDIRECTED PRN 10/17/17 [History] Cefdinir [Omnicef] 300 mg PO DAILY 10/17/17 [History] Ciprofloxacin/Dexamethasone [Ciprodex Otic Susp] 1 drop EARRT ASDIRECTED [History] Nivolumab [Opdivo] 0 mg ASDIRECTED 10/17/17 [History] methylPREDNISolone [Medrol] 1 tab PO ASDIRECTED 10/17/17 [History] Past Medical History - Past Health History Medical/Surgical History: Denies Medical/Surgical History HEENT History: Reports: Other (See Below) Other HEENT History: pusy fluid in right ear Cardiovascular History: Reports: Automatic Implantable Cardioverter Defibrillators, CAD, High Cholesterol, Hypertension, [place], Pacemaker, PTCA, Stents Respiratory History: Reports: COPD Other Respiratory History: lung cancer Other Endocrine/Metabolic History: states was told blood sugars are ? prediabetic Oncologic (Cancer) History: Reports: Lung - Infectious Disease History Infectious Disease History: Reports: Chicken Pox, Measles, Mumps, Shingles - Past Surgical History Other Musculoskeletal Surgeries/Procedures:: states legs feel weak and unable to stand for long periods of time. Social & Family History - Tobacco Use Smoking Status *Q: Current Every Day Smoker Years of Tobacco use: 50 Packs/Tins Daily: 1 Used Tobacco, but Quit: No Month/Year Tobacco Last Used: december Second Hand Smoke Exposure: Yes - Caffeine Use Caffeine Use: Reports: Coffee - Alcohol Use Days Per Week of Alcohol Use: 0 - Recreational Drug Use Recreational Drug Use: No Review of Systems - Review of Systems Review Of Systems: ROS reveals no pertinent complaints other than HPI. ED EXAM, GENERAL - Physical Exam Exam: See Below Exam Limited By: No Limitations General Appearance: Alert, WD/WN, Mild Distress Eye Exam: Bilateral Eye: EOMI, Normal Inspection, PERRL Ears: Normal External Exam, Hearing Grossly Normal Nose: Normal Inspection Throat/Mouth: Normal Inspection, Normal Voice, No Airway Compromise Head: Atraumatic, Normocephalic Neck: Normal Inspection, Supple, Non-Tender, Full Range of Motion Respiratory/Chest: No Respiratory Distress, No Accessory Muscle Use, Chest Non- Tender, Decreased Breath Sounds Cardiovascular: Normal Peripheral Pulses, Regular Rate, Rhythm, No Edema, No Gallop, No JVD, No Murmur, No Rub Peripheral Pulses: 2+: Radial (L), Radial (R) GI/Abdominal: Normal Bowel Sounds, Soft, Non-Tender, No Organomegaly, No Distention, No Abnormal Bruit, No Mass (Male) Exam: Deferred Rectal (Males) Exam: Deferred Back Exam: Normal Inspection, Full Range of Motion Extremities: Normal Inspection, Normal Range of Motion, No Pedal Edema, Normal Capillary Refill, Leg Pain (bilateral from toes to just below the knee bilaterally) Neurological: Alert, Oriented, CN II-XII Intact, Normal Cognition, Normal Gait, Normal Reflexes, No Motor/Sensory Deficits Psychiatric: Normal Affect, Normal Mood Skin Exam: Warm, Dry, Intact, Normal Color, No Rash Lymphatic: No Adenopathy Course - Vital Signs Last Recorded V/S: Last Vital Signs Temp 99.3 F 12/28/17 23:21 Pulse 76 12/28/17 23:21 Resp 16 12/28/17 23:21 BP 103/69 12/28/17 23:21 Pulse Ox 97 12/28/17 23:21 - Orders/Labs/Meds Meds: Medications Discontinued Medications Generic Name Dose Route Start Last Admin Trade Name Pedro PRN Reason Stop Dose Admin Gabapentin 300 mg 12/28/17 23:13 12/28/17 23:23 Neurontin PO 12/28/17 23:14 300 mg ONETIME ONE Administration Hydromorphone HCl 0.5 mg 12/28/17 23:13 12/28/17 23:20 Dilaudid IM 12/28/17 23:14 0.5 mg ONETIME ONE Administration Departure - Departure Time of Disposition: 23:14 Disposition: Home, Self-Care 01 Condition: Fair Clinical Impression: Neuropathic pain, leg, bilateral - Discharge Information Instructions: Neuropathic Pain Referrals: Titi Ruano NP [Primary Care Provider] - Forms: ED Department Discharge Additional Instructions: Gabapentin 300mg three times daily Follow up with your primary care facility and your oncologist.
[2017-12-28 23:23] VITALS: BP 103/69
== END 2017-12-28 23:36 | disposition home or self-care (01) ==
LOC: DL.ED 21:20
DX: M79.2 Neuralgia and neuritis, unspecified (principal); M79.604 Pain in right leg; M79.605 Pain in left leg; J44.9 Chronic obstructive pulmonary disease, unspecified; E78.00 Pure hypercholesterolemia, unspecified; I10 Essential (primary) hypertension; I25.2 Old myocardial infarction; F17.210 Nicotine dependence, cigarettes, uncomplicated; Z88.1 Allergy status to other antibiotic agents; Z88.0 Allergy status to penicillin; Z79.82 Long term (current) use of aspirin; Z79.899 Other long term (current) drug therapy
CPT/HCPCS: 96372; 99283; A9270; J1170

== ENCOUNTER 2018-02-07 19:54 | Emergency (ER) | payer MEDICARE, MEDICAID | END 2018-02-07 22:18 | disposition left against medical advice (07) | LOC: DL.ED 19:54 | DX: Z53.21 Procedure and treatment not carried out due to patient leaving prior to being seen by health care provider (principal) ==

== ENCOUNTER 2018-07-02 12:46 | Observation (INO) | payer MEDICARE, MEDICAID ==
[2018-07-02] MEDS ORDERED: Sodium Chloride 0.9% 1,000 ML IV ONE (13:04)
--- NOTE | 2018-07-02 13:10 | EDM.PDOC ---
ED HPI GENERAL MEDICAL PROBLEM - General Chief Complaint: General Stated Complaint: feel sick [id number] Time Seen by Provider: 07/02/18 13:00 Source of Information: Reports: Patient, RN, RN Notes Reviewed History Limitations: Reports: No Limitations - History of Present Illness INITIAL COMMENTS - FREE TEXT/NARRATIVE: Pt to ER with c/o not feeling well. Patient states he has lung cancer with mets to the liver. He states he had chemo last week and began not feeling well on Wednesday. Patient states he was also started on Levaquin on . States he has been running a fever that has gotten up to 101. Patient admits to chills and nausea, generalized weakness. Onset: Gradual Duration: Getting Worse - Related Data Allergies Allergy/AdvReac Type Severity Reaction Status Date / Time doxycycline Allergy Headache Verified 07/02/18 12:53 Penicillins Allergy Hives Verified 07/02/18 12:53 Home Meds: Home Meds Aspirin [Halfprin] 325 mg PO DAILY 01/30/14 [History] Montelukast [Singulair] 10 mg PO BEDTIME 01/30/14 [History] [place]-3 Fatty Acids [Fish Oil] 2,000 mg PO BID 01/30/14 [History] ALPRAZolam [Xanax] 0.5 mg PO BEDTIME 09/29/14 [History] Digoxin 1.5 tab PO DAILY 09/29/14 [History] Carvedilol 25 mg PO BID 12/23/14 [History] Losartan Potassium 25 mg PO DAILY 12/23/14 [History] Roflumilast [Daliresp] 500 mcg PO DAILY 12/23/14 [History] Arformoterol [Brovana] 15 mcg INH BID 11/28/15 [History] Budesonide [Pulmicort] 0.5 mg INH BID 11/28/15 [History] Isosorbide Mononitrate [Isosorbide Mononitrate ER] 30 mg PO DAILY 11/28/15 [ History] Mometasone Furoate [Nasonex] 2 sprays NASBOTH BID 11/28/15 [History] Nitroglycerin [Nitrostat] 0.4 mg SL ASDIRECTED 11/28/15 [History] Tiotropium [place] [Spiriva Respimat] 1 puff INH DAILY 02/25/16 [History] Topiramate [Topamax] 100 mg PO BEDTIME 11/28/15 [History] atorvaSTATin [Lipitor] 40 mg PO BEDTIME 11/28/15 [History] Amiodarone [Cordarone] 200 mg PO DAILY 07/02/16 [History] Benzonatate 200 mg PO ASDIRECTED PRN 10/17/17 [History] Cefdinir [Omnicef] 300 mg PO DAILY 10/17/17 [History] Ciprofloxacin/Dexamethasone [Ciprodex Otic Susp] 1 drop EARRT ASDIRECTED [History] Nivolumab [Opdivo] 0 mg ASDIRECTED 10/17/17 [History] methylPREDNISolone [Medrol] 1 tab PO ASDIRECTED 10/17/17 [History] Past Medical History - Past Health History Medical/Surgical History: Denies Medical/Surgical History HEENT History: Reports: Other (See Below) Other HEENT History: pusy fluid in right ear Cardiovascular History: Reports: Automatic Implantable Cardioverter Defibrillators, CAD, High Cholesterol, Hypertension, [place], Pacemaker, PTCA, Stents Respiratory History: Reports: COPD Other Respiratory History: lung cancer Other Endocrine/Metabolic History: states was told blood sugars are ? prediabetic Oncologic (Cancer) History: Reports: Lung - Infectious Disease History Infectious Disease History: Reports: Chicken Pox, Measles, Mumps, Shingles - Past Surgical History Other Musculoskeletal Surgeries/Procedures:: states legs feel weak and unable to stand for long periods of time. Social & Family History - Tobacco Use Smoking Status *Q: Current Every Day Smoker Years of Tobacco use: 30 Packs/Tins Daily: 0.1 - Caffeine Use Caffeine Use: Reports: Coffee - Recreational Drug Use Recreational Drug Use: No ED ROS GENERAL - Review of Systems Review Of Systems: ROS reveals no pertinent complaints other than HPI. ED EXAM, GENERAL - Physical Exam Exam: See Below Exam Limited By: No Limitations General Appearance: Alert, WD/WN, Mild Distress Eye Exam: Bilateral Eye: EOMI, Normal Inspection Ears: Normal External Exam, Hearing Grossly Normal Nose: Normal Inspection Throat/Mouth: Normal Inspection, Normal Voice, No Airway Compromise Head: Atraumatic, Normocephalic Neck: Normal Inspection, Supple, Non-Tender, Full Range of Motion Respiratory/Chest: No Respiratory Distress, Crackles, Rhonchi (throughout) Cardiovascular: Normal Peripheral Pulses, Regular Rate, Rhythm, No Edema, No Gallop, No JVD, No Murmur, No Rub Peripheral Pulses: 2+: Radial (L), Radial (R) GI/Abdominal: Normal Bowel Sounds, Soft, Tender (Male) Exam: Deferred Rectal (Males) Exam: Deferred Back Exam: Normal Inspection, Full Range of Motion Extremities: Normal Inspection, Normal Range of Motion, Non-Tender, No Pedal Edema, Normal Capillary Refill Neurological: Alert, Oriented, CN II-XII Intact, Normal Cognition Psychiatric: Depressed Mood, Flat Affect Skin Exam: Warm, Dry, Intact, Normal Color, No Rash Lymphatic: No Adenopathy EKG INTERPRETATION EKG Date: 07/02/18 Time: 13:12 Rhythm: Other (sinus rhythm with first degree AV block) Rate (Beats/Min): 80 QRS: Wide Comparison: No Change Course - Vital Signs Last Recorded V/S: Last Vital Signs Temp 99.7 F 07/02/18 12:54 Pulse 88 07/02/18 12:54 Resp 20 07/02/18 12:54 BP 93/61 07/02/18 12:54 Pulse Ox 96 07/02/18 12:54 - Orders/Labs/Meds Orders: Active Orders 24 hr Category Date Time Status EKG Documentation Completion [RC] STAT Care 07/02/18 13:03 Active CULTURE BLOOD [BC] Stat Lab 07/02/18 13:06 Received Labs: Laboratory Tests 07/02/18 07/02/18 07/02/18 Range/Units 13:06 13:06 13:06 WBC 8.1 (5.0-10.0) 10^3/uL RBC 3.26 L (4.6-6.2) 10^6/uL Hgb 10.6 L D (14.0-18.0) g/dL Hct 31.9 L (40.0-54.0) % MCV 97.9 (80-100) fL MCH 32.5 (27.0-34.0) pg MCHC 33.2 (33.0-35.0) g/dL Plt Count 39 L* (150-450) 10^3/uL Neut % (Auto) 96.0 H (42.2-75.2) % Lymph % (Auto) 3.3 L (20.5-50.1) % [place] % (Auto) 0.0 L (2-8) % Eos % (Auto) 0.7 L (1.0-3.0) % Baso % (Auto) 0.0 (0.0-1.0) % Sodium 133 L (135-145) mmol/L Potassium 3.7 (3.6-5.0) mmol/L Chloride 102 (101-111) mmol/L Carbon Dioxide 22.0 (21.0-31.0) mmol/L Anion Gap 12.7 BUN 16 (7-18) mg/dL Creatinine 0.8 (0.6-1.3) mg/dL Est Cr Clr Drug Dosing 110.47 mL/min Estimated GFR (MDRD) > 60 BUN/Creatinine Ratio 20.00 Glucose 99 (74-105) mg/dL Lactic Acid 1.2 (0.5-2.2) mmol/L Calcium 8.4 (8.4-10.2) mg/dl Total Bilirubin 1.5 H (0.2-1.0) mg/dL AST 27 (10-42) IU/L ALT 30 (10-60) IU/L Alkaline Phosphatase 68 (42-121) IU/L Troponin I 0.03 H* (0.00-0.02) ng/ml B-Natriuretic Peptide 398 H (0-100) pg/ml Total Protein 6.2 L (6.7-8.2) g/dl Albumin 3.1 L (3.2-5.5) g/dl Globulin 3.1 Albumin/Globulin Ratio 1.00 Urine Color (YELLOW) Urine Appearance (CLEAR) Urine pH (5.0-9.0) Ur Specific [place] (1.005-1.030) Urine Protein (NEGATIVE) Urine Glucose (UA) (NEGATIVE) Urine Ketones (NEGATIVE) Urine Occult Blood (NEGATIVE) Urine Nitrite (NEGATIVE) Urine Bilirubin (NEGATIVE) Urine Urobilinogen (0.2-1.0) mg/dL Ur Leukocyte Esterase (NEGATIVE) Urine RBC /HPF Urine WBC (0-5/HPF) /HPF Ur Epithelial Cells /HPF Amorphous Sediment (0/HPF) /HPF Urine Bacteria (0-FEW/HPF) /HPF Urine Mucus /LPF 07/02/18 Range/Units 13:24 WBC (5.0-10.0) 10^3/uL RBC (4.6-6.2) 10^6/uL Hgb (14.0-18.0) g/dL Hct (40.0-54.0) % MCV (80-100) fL MCH (27.0-34.0) pg MCHC (33.0-35.0) g/dL Plt Count (150-450) 10^3/uL Neut % (Auto) (42.2-75.2) % Lymph % (Auto) (20.5-50.1) % [place] % (Auto) (2-8) % Eos % (Auto) (1.0-3.0) % Baso % (Auto) (0.0-1.0) % Sodium (135-145) mmol/L Potassium (3.6-5.0) mmol/L Chloride (101-111) mmol/L Carbon Dioxide (21.0-31.0) mmol/L Anion Gap BUN (7-18) mg/dL Creatinine (0.6-1.3) mg/dL Est Cr Clr Drug Dosing mL/min Estimated GFR (MDRD) BUN/Creatinine Ratio Glucose (74-105) mg/dL Lactic Acid (0.5-2.2) mmol/L Calcium (8.4-10.2) mg/dl Total Bilirubin (0.2-1.0) mg/dL AST (10-42) IU/L ALT (10-60) IU/L Alkaline Phosphatase (42-121) IU/L Troponin I (0.00-0.02) ng/ml B-Natriuretic Peptide (0-100) pg/ml Total Protein (6.7-8.2) g/dl Albumin (3.2-5.5) g/dl Globulin Albumin/Globulin Ratio Urine Color Dark yellow (YELLOW) Urine Appearance Slightly cloudy (CLEAR) Urine pH 7.0 (5.0-9.0) Ur Specific [place] 1.020 (1.005-1.030) Urine Protein Negative (NEGATIVE) Urine Glucose (UA) Negative (NEGATIVE) Urine Ketones Negative (NEGATIVE) Urine Occult Blood Negative (NEGATIVE) Urine Nitrite Negative (NEGATIVE) Urine Bilirubin Negative (NEGATIVE) Urine Urobilinogen >=8.0 H (0.2-1.0) mg/dL Ur Leukocyte Esterase Negative (NEGATIVE) Urine RBC 0-5 /HPF Urine WBC 0-5 (0-5/HPF) /HPF Ur Epithelial Cells Rare /HPF Amorphous Sediment Many (0/HPF) /HPF Urine Bacteria Few (0-FEW/HPF) /HPF Urine Mucus Few H /LPF Meds: Medications Discontinued Medications Generic Name Dose Route Start Last Admin Trade Name Pedro PRN Reason Stop Dose Admin Sodium Chloride 1,000 mls @ 999 mls/hr 07/02/18 13:04 07/02/18 13:14 Normal Saline IV 07/02/18 14:04 999 mls/hr .BOLUS ONE Administration Ondansetron HCl 4 mg 07/02/18 13:22 07/02/18 13:28 Zofran IV 07/02/18 13:23 4 mg ONETIME ONE Administration - Radiology Interpretation Free Text/Narrative:: chest xray: IMPRESSION: No acute findings. Thank you for allowing us to participate in the care of your patient. Dictated and Authenticated by: Braxton Romero MD 07/02/2018 2:15 PM Central Time ([place] & [place]) See rad report Departure - Departure Time of Disposition: 14:24 Disposition: Refer to Observation Condition: Fair Clinical Impression: Nausea, Weakness Lung cancer Qualifiers: Laterality: unspecified laterality Lung location: unspecified part of lung Qualified Code(s): C34.90 - Malignant neoplasm of unspecified part of unspecified bronchus or lung - Discharge Information *PRESCRIPTION DRUG MONITORING PROGRAM REVIEWED*: No *COPY OF PRESCRIPTION DRUG MONITORING REPORT IN PATIENT RAJENDRA: No Forms: ED Department Discharge - My Orders Last 24 Hours: My Active Orders 07/02/18 13:03 EKG Documentation Completion [RC] STAT 07/02/18 13:06 CULTURE BLOOD [BC] Stat - Assessment/Plan Last 24 Hours: My Active Orders 07/02/18 13:03 EKG Documentation Completion [RC] STAT 07/02/18 13:06 CULTURE BLOOD [BC] Stat
[2018-07-02] MEDS ORDERED: Ondansetron 4 MG/2 ML SDV IV ONE (13:22)
[2018-07-02 13:38] LABS: ANION GAP 12.7; CHLORIDE,CL 102 mmol/L (101-111); SODIUM,NA 133 mmol/L (135-145)
--- NOTE | 2018-07-02 16:08 | PCM.HP ---
H&P History of Present Illness - General Date of Service: 07/02/18 Source of Information: Patient, Family History Limitations: Reports: No Limitations - History of Present Illness Initial Comments - Free Text/Narative: 57 yo M with PMH of multiple medical comorbidities including ischemic cardiomyopathy with an LVEF of around 15%, status post AICD, history of asthma, COPD, nocturnal hypoxia, on home O2, active smoking (light smoker currently and ex-heavy smoker) who was diagnosed with right lung large cell neuroendocrine carcinoma in 2014. 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 Follows regularly with Oncology and on , he was started on Gemcitabine 1000 mg/meter sq days 1,8,15 every 28 days. He had his last chemo session on (two days ago) and since then has had significant fatigue, nausea, poor appetite and demotivated. He noted fever with temp of 101 F and came to the ED. In the ED, chest xray is clear, and urinalysis is normal. He has a mild cough, non-productive and was placed on levaquin by the Oncologist in his last visit. No chest pain, no leg swelling, no abdominal pain, no dysuria or hematuria. In the ED, he was given Zofran and his nausea improved and he was able to eat some snacks. He was also given IV fluids and he felt stronger. - Related Data Allergies/Adverse Reactions: Allergies Allergy/AdvReac Type Severity Reaction Status Date / Time doxycycline Allergy Headache Verified 07/02/18 15:10 Penicillins Allergy Hives Verified 07/02/18 15:10 Home Medications: Home Meds Aspirin [Halfprin] 81 mg PO DAILY 01/30/14 [History] Montelukast [Singulair] 10 mg PO BEDTIME 01/30/14 [History] [place]-3 Fatty Acids [Fish Oil] 500 mg PO DAILY 01/30/14 [History] ALPRAZolam [Xanax] 0.5 mg PO BEDTIME 09/29/14 [History] Digoxin 1.5 tab PO DAILY 09/29/14 [History] Carvedilol 25 mg PO BID 12/23/14 [History] Losartan Potassium 25 mg PO DAILY 12/23/14 [History] Roflumilast [Daliresp] 500 mcg PO DAILY 12/23/14 [History] Budesonide [Pulmicort] 0.5 mg INH BID 11/28/15 [History] Isosorbide Mononitrate [Isosorbide Mononitrate ER] 30 mg PO DAILY 11/28/15 [ History] Mometasone Furoate [Nasonex] 2 sprays NASBOTH BID 11/28/15 [History] Nitroglycerin [Nitrostat] 0.4 mg SL ASDIRECTED 11/28/15 [History] Tiotropium [place] [Spiriva Respimat] 1 puff INH DAILY 11/28/15 [History] Topiramate [Topamax] 100 mg PO BEDTIME 11/28/15 [History] atorvaSTATin [Lipitor] 40 mg PO BEDTIME 11/28/15 [History] Amiodarone [Cordarone] 200 mg PO DAILY 07/02/16 [History] methylPREDNISolone [Medrol] 1 tab PO ASDIRECTED 10/17/17 [History] levoFLOXacin [Levaquin] 500 mg PO DAILY 07/02/18 [History] Past Medical History - Past Health History Medical/Surgical History: Denies Medical/Surgical History HEENT History: Reports: Other (See Below) Other HEENT History: pusy fluid in right ear, also c/o ringing in the ear drum Cardiovascular History: Reports: Automatic Implantable Cardioverter Defibrillators, CAD, High Cholesterol, Hypertension, ND, Pacemaker, PTCA, Stents Respiratory History: Reports: COPD Other Respiratory History: lung cancer Gastrointestinal History: Reports: None Genitourinary History: Reports: None Musculoskeletal History: Reports: Arthritis Neurological History: Reports: Migraines Psychiatric History: Reports: Anxiety, Depression Endocrine/Metabolic History: Reports: None Other Endocrine/Metabolic History: states was told blood sugars are ? prediabetic Oncologic (Cancer) History: Reports: Liver, Lung Dermatologic History: Reports: None - Infectious Disease History Infectious Disease History: Reports: Chicken Pox, Measles, Mumps - Past Surgical History HEENT Surgical History: Reports: None Cardiovascular Surgical History: Reports: Coronary Artery Bypass Respiratory Surgical History: Reports: Lung Biopsies GI Surgical History: Reports: None Male Surgical History: Reports: None Endocrine Surgical History: Reports: None Musculoskeletal Surgical History: Reports: None Other Musculoskeletal Surgeries/Procedures:: states legs feel weak and unable to stand for long periods of time. Social & Family History - Family History Family Medical History: Noncontributory - Tobacco Use Smoking Status *Q: Current Every Day Smoker Years of Tobacco use: 51 Packs/Tins Daily: 1 Used Tobacco, but Quit: No Second Hand Smoke Exposure: Yes - Caffeine Use Caffeine Use: Reports: Coffee - Recreational Drug Use Recreational Drug Use: No H&P Review of Systems - Review of Systems: Review Of Systems: ROS reveals no pertinent complaints other than HPI. Exam - Exam Exam: See Below - Vital Signs Vital Signs: Last Vital Signs Temp 37.8 C 07/02/18 15:09 Pulse 84 07/02/18 15:09 Resp 24 H 07/02/18 15:09 BP 75/48 L 07/02/18 15:09 Pulse Ox 99 07/02/18 15:09 Weight: 82.735 kg - Exam General: Alert, Oriented HEENT: Conjunctiva Clear, Pupils Equal, Pupils Reactive Neck: Supple, Trachea Midline Lungs: Clear to Auscultation, Normal Respiratory Effort Cardiovascular: Regular Rate, Regular Rhythm GI/Abdominal Exam: Normal Bowel Sounds, Soft, Non-Tender Extremities: Pedal Edema - Patient Data Lab Results Last 24 hrs: Laboratory Results - last 24 hr 07/02/18 07/02/18 07/02/18 Range/Units 13:06 13:06 13:06 WBC 8.1 (5.0-10.0) 10^3/uL RBC 3.26 L (4.6-6.2) 10^6/uL Hgb 10.6 L D (14.0-18.0) g/dL Hct 31.9 L (40.0-54.0) % MCV 97.9 (80-100) fL MCH 32.5 (27.0-34.0) pg MCHC 33.2 (33.0-35.0) g/dL Plt Count 39 L* (150-450) 10^3/uL Neut % (Auto) 96.0 H (42.2-75.2) % Lymph % (Auto) 3.3 L (20.5-50.1) % [place] % (Auto) 0.0 L (2-8) % Eos % (Auto) 0.7 L (1.0-3.0) % Baso % (Auto) 0.0 (0.0-1.0) % Sodium 133 L (135-145) mmol/L Potassium 3.7 (3.6-5.0) mmol/L Chloride 102 (101-111) mmol/L Carbon Dioxide 22.0 (21.0-31.0) mmol/L Anion Gap 12.7 BUN 16 (7-18) mg/dL Creatinine 0.8 (0.6-1.3) mg/dL Est Cr Clr Drug Dosing 110.47 mL/min Estimated GFR (MDRD) > 60 BUN/Creatinine Ratio 20.00 Glucose 99 (74-105) mg/dL Lactic Acid 1.2 (0.5-2.2) mmol/L Calcium 8.4 (8.4-10.2) mg/dl Total Bilirubin 1.5 H (0.2-1.0) mg/dL AST 27 (10-42) IU/L ALT 30 (10-60) IU/L Alkaline Phosphatase 68 (42-121) IU/L Troponin I 0.03 H* (0.00-0.02) ng/ml B-Natriuretic Peptide 398 H (0-100) pg/ml Total Protein 6.2 L (6.7-8.2) g/dl Albumin 3.1 L (3.2-5.5) g/dl Globulin 3.1 Albumin/Globulin Ratio 1.00 Urine Color (YELLOW) Urine Appearance (CLEAR) Urine pH (5.0-9.0) Ur Specific [place] (1.005-1.030) Urine Protein (NEGATIVE) Urine Glucose (UA) (NEGATIVE) Urine Ketones (NEGATIVE) Urine Occult Blood (NEGATIVE) Urine Nitrite (NEGATIVE) Urine Bilirubin (NEGATIVE) Urine Urobilinogen (0.2-1.0) mg/dL Ur Leukocyte Esterase (NEGATIVE) Urine RBC /HPF Urine WBC (0-5/HPF) /HPF Ur Epithelial Cells /HPF Amorphous Sediment (0/HPF) /HPF Urine Bacteria (0-FEW/HPF) /HPF Urine Mucus /LPF 07/02/18 Range/Units 13:24 WBC (5.0-10.0) 10^3/uL RBC (4.6-6.2) 10^6/uL Hgb (14.0-18.0) g/dL Hct (40.0-54.0) % MCV (80-100) fL MCH (27.0-34.0) pg MCHC (33.0-35.0) g/dL Plt Count (150-450) 10^3/uL Neut % (Auto) (42.2-75.2) % Lymph % (Auto) (20.5-50.1) % [place] % (Auto) (2-8) % Eos % (Auto) (1.0-3.0) % Baso % (Auto) (0.0-1.0) % Sodium (135-145) mmol/L Potassium (3.6-5.0) mmol/L Chloride (101-111) mmol/L Carbon Dioxide (21.0-31.0) mmol/L Anion Gap BUN (7-18) mg/dL Creatinine (0.6-1.3) mg/dL Est Cr Clr Drug Dosing mL/min Estimated GFR (MDRD) BUN/Creatinine Ratio Glucose (74-105) mg/dL Lactic Acid (0.5-2.2) mmol/L Calcium (8.4-10.2) mg/dl Total Bilirubin (0.2-1.0) mg/dL AST (10-42) IU/L ALT (10-60) IU/L Alkaline Phosphatase (42-121) IU/L Troponin I (0.00-0.02) ng/ml B-Natriuretic Peptide (0-100) pg/ml Total Protein (6.7-8.2) g/dl Albumin (3.2-5.5) g/dl Globulin Albumin/Globulin Ratio Urine Color Dark yellow (YELLOW) Urine Appearance Slightly cloudy (CLEAR) Urine pH 7.0 (5.0-9.0) Ur Specific [place] 1.020 (1.005-1.030) Urine Protein Negative (NEGATIVE) Urine Glucose (UA) Negative (NEGATIVE) Urine Ketones Negative (NEGATIVE) Urine Occult Blood Negative (NEGATIVE) Urine Nitrite Negative (NEGATIVE) Urine Bilirubin Negative (NEGATIVE) Urine Urobilinogen >=8.0 H (0.2-1.0) mg/dL Ur Leukocyte Esterase Negative (NEGATIVE) Urine RBC 0-5 /HPF Urine WBC 0-5 (0-5/HPF) /HPF Ur Epithelial Cells Rare /HPF Amorphous Sediment Many (0/HPF) /HPF Urine Bacteria Few (0-FEW/HPF) /HPF Urine Mucus Few H /LPF Result Diagrams: 07/02/18 13:06 07/02/18 13:06 Imaging Impressions Last 24 hrs: Chest Xray: no infiltrates or effusions, my read. Problem List Initiated/Reviewed/Updated: Yes Orders Last 24hrs: Active Orders 24 hr Category Date Time Status EKG Documentation Completion [RC] STAT Care 07/02/18 13:03 Active CULTURE BLOOD [BC] Stat Lab 07/02/18 13:06 Received Assessment/Plan Comment:: 57 yo M with PMH of metastatic neuroendocrine carcinoma of the lungs who p/w fatigue, nausea, fever after chemo session. #Fever No features of sepsis Likely chemo induced fever Has a chemoport on the chest CXR clear, no UTI in urinalysis. Will check blood cultures x 2 Monitor vital signs closely Hold antibiotics for now Observe in the hospital for the next 24 hours #Nausea #Poor appetite #Generalized weakness possibly 2/2 chemo will also r/o Dig toxicity Check Digoxin level IV Zofran PRN nausea and vomiting #Thrombocytopenia 2/2 chemo no features of bleeding diasthesis monitor platelet levels for now will transfuse plt if less than 20K #Hx of CHF, NICM stable, not in acute exacerbation continue GMDT: losartan, carvedilol salt restriction fluid restriction #Hx of COPD stable, not in acute exacerbation continue budesonide, tiotropium #DVT ppx SCDs No chemoprophylaxis given thrombocytopenia #Code Status/Goals of Care Full code I discussed code status extensively with the patient Also discussed hospice as an option with the patient Patient wants to think about it and will contact PCP
[2018-07-02] MEDS ORDERED: Nitroglycerin 0.4 MG Tab.SL SL SCH (16:45)
[2018-07-02] MEDS ORDERED: methylPREDNISolone 4 MG Tab 21 Tab/Dosepak PO SCH (16:45)
[2018-07-02] MEDS ORDERED: Ondansetron 4 MG/2 ML SDV IV PRN (17:00)
[2018-07-02] MEDS ORDERED: Nitroglycerin 0.4 MG Tab.SL SL PRN (17:00)
[2018-07-02] MEDS: Acetaminophen 325 MG Tab PO PRN ×2 (17:41→23:32)
[2018-07-02] MEDS ORDERED: Albuterol/Ipratropium 3.0-0.5 MG/3 ML Neb Soln ONE (18:10)
[2018-07-02] MEDS: Albuterol/Ipratropium 3.0-0.5 MG/3 ML Neb Soln NEB SCH (18:12)
[2018-07-02] MEDS: Budesonide 0.5 MG/2 ML Neb Susp INH SCH (18:13)
[2018-07-02] MEDS: Carvedilol 25 MG Tab PO SCH (20:00)
[2018-07-02] MEDS: Topiramate 100 MG Tab PO SCH (20:00)
[2018-07-02] MEDS: atorvaSTATin 20 MG Tab PO SCH (20:00)
[2018-07-02] MEDS: ALPRAZolam 0.5 MG Tab PO SCH (20:00)
[2018-07-02] MEDS: Montelukast 10 MG Tab PO SCH (20:01)
[2018-07-02] MEDS ORDERED: MOMETASONE FUROATE NASBOTH SCH (21:00)
[2018-07-03 07:05] LABS: ANION GAP 10.8; CHLORIDE,CL 104 mmol/L (101-111); SODIUM,NA 133 mmol/L (135-145)
[2018-07-03] MEDS: Albuterol/Ipratropium 3.0-0.5 MG/3 ML Neb Soln NEB SCH ×2 (07:20→19:01)
[2018-07-03] MEDS: Budesonide 0.5 MG/2 ML Neb Susp INH SCH ×2 (07:20→19:01)
[2018-07-03] MEDS: Acetaminophen 325 MG Tab PO PRN ×3 (08:07→21:15)
[2018-07-03] MEDS: Digoxin 125 MCG Tab PO SCH (08:09)
[2018-07-03] MEDS: Aspirin 81 MG Tab.EC PO SCH (08:10)
[2018-07-03] MEDS: Amiodarone 200 MG Tab PO SCH (08:10)
[2018-07-03] MEDS: Carvedilol 25 MG Tab PO SCH ×2 (08:15→20:41)
[2018-07-03] MEDS: Isosorbide Mononitrate 30 MG Tab.ER PO SCH (08:15)
[2018-07-03] MEDS: Losartan 25 MG Tab PO SCH (08:16)
[2018-07-03] MEDS ORDERED: OMEGA PO SCH (09:00)
[2018-07-03] MEDS ORDERED: Non-Formulary Medication 1 Each (Roflumilast [Daliresp] 500 MCG) PO SCH (09:00)
[2018-07-03] MEDS ORDERED: FATTY ACIDS PO SCH (09:00)
[2018-07-03] MEDS ORDERED: TIOTROPIUM BROMIDE INH SCH (09:00)
--- NOTE | 2018-07-03 09:09 | PCM.PN ---
- General Info Date of Service: 07/03/18 Admission Dx/Problem (Free Text): Fever Subjective Update: Patient complains of cough productive of greenish sputum Was still febrile overnight with T max of 101.8 F Nausea and vomiting has improved. - Review of Systems General: Reports: Fever HEENT: Reports: No Symptoms Pulmonary: Reports: Shortness of Breath, Cough, Sputum Cardiovascular: Reports: No Symptoms Gastrointestinal: Reports: No Symptoms Genitourinary: Reports: No Symptoms Musculoskeletal: Reports: No Symptoms Skin: Reports: No Symptoms - Patient Data Vitals - Most Recent: Last Vital Signs Temp 38.3 C H 07/03/18 08:10 Pulse 120 H 07/03/18 08:15 Resp 20 07/03/18 08:10 BP 108/53 L 07/03/18 08:16 Pulse Ox 92 L 07/03/18 08:10 Weight - Most Recent: 80.649 kg I&O - Last 24 Hours: Intake & Output 07/02/18 07/03/18 07/03/18 22:59 06:59 14:59 Intake Total 240 300 Output Total 175 400 Balance 65 -100 Lab Results Last 24 Hours: Laboratory Results - last 24 hr 07/02/18 07/02/18 07/02/18 Range/Units 13:00 13:06 13:06 WBC 8.1 (5.0-10.0) 10^3/uL RBC 3.26 L (4.6-6.2) 10^6/uL Hgb 10.6 L D (14.0-18.0) g/dL Hct 31.9 L (40.0-54.0) % MCV 97.9 (80-100) fL MCH 32.5 (27.0-34.0) pg MCHC 33.2 (33.0-35.0) g/dL Plt Count 39 L* (150-450) 10^3/uL Neut % (Auto) 96.0 H (42.2-75.2) % Lymph % (Auto) 3.3 L (20.5-50.1) % [place] % (Auto) 0.0 L (2-8) % Eos % (Auto) 0.7 L (1.0-3.0) % Baso % (Auto) 0.0 (0.0-1.0) % Sodium 133 L (135-145) mmol/L Potassium 3.7 (3.6-5.0) mmol/L Chloride 102 (101-111) mmol/L Carbon Dioxide 22.0 (21.0-31.0) mmol/L Anion Gap 12.7 BUN 16 (7-18) mg/dL Creatinine 0.8 (0.6-1.3) mg/dL Est Cr Clr Drug Dosing 110.47 mL/min Estimated GFR (MDRD) > 60 BUN/Creatinine Ratio 20.00 Glucose 99 (74-105) mg/dL Lactic Acid (0.5-2.2) mmol/L Calcium 8.4 (8.4-10.2) mg/dl Total Bilirubin 1.5 H (0.2-1.0) mg/dL AST 27 (10-42) IU/L ALT 30 (10-60) IU/L Alkaline Phosphatase 68 (42-121) IU/L Troponin I 0.03 H* (0.00-0.02) ng/ml B-Natriuretic Peptide 398 H (0-100) pg/ml Total Protein 6.2 L (6.7-8.2) g/dl Albumin 3.1 L (3.2-5.5) g/dl Globulin 3.1 Albumin/Globulin Ratio 1.00 Urine Color (YELLOW) Urine Appearance (CLEAR) Urine pH (5.0-9.0) Ur Specific [place] (1.005-1.030) Urine Protein (NEGATIVE) Urine Glucose (UA) (NEGATIVE) Urine Ketones (NEGATIVE) Urine Occult Blood (NEGATIVE) Urine Nitrite (NEGATIVE) Urine Bilirubin (NEGATIVE) Urine Urobilinogen (0.2-1.0) mg/dL Ur Leukocyte Esterase (NEGATIVE) Urine RBC /HPF Urine WBC (0-5/HPF) /HPF Ur Epithelial Cells /HPF Amorphous Sediment (0/HPF) /HPF Urine Bacteria (0-FEW/HPF) /HPF Urine Mucus /LPF Digoxin 2.2 (0-2.5) ng/ml 07/02/18 07/02/18 07/03/18 Range/Units 13:06 13:24 06:18 WBC 7.8 (5.0-10.0) 10^3/uL RBC 2.93 L (4.6-6.2) 10^6/uL Hgb 9.4 L (14.0-18.0) g/dL Hct 29.1 L (40.0-54.0) % MCV 99.3 (80-100) fL MCH 32.1 (27.0-34.0) pg MCHC 32.3 L (33.0-35.0) g/dL Plt Count 33 L* (150-450) 10^3/uL Neut % (Auto) 93.9 H (42.2-75.2) % Lymph % (Auto) 5.1 L (20.5-50.1) % [place] % (Auto) 0.3 L (2-8) % Eos % (Auto) 0.6 L (1.0-3.0) % Baso % (Auto) 0.1 (0.0-1.0) % Sodium (135-145) mmol/L Potassium (3.6-5.0) mmol/L Chloride (101-111) mmol/L Carbon Dioxide (21.0-31.0) mmol/L Anion Gap BUN (7-18) mg/dL Creatinine (0.6-1.3) mg/dL Est Cr Clr Drug Dosing mL/min Estimated GFR (MDRD) BUN/Creatinine Ratio Glucose (74-105) mg/dL Lactic Acid 1.2 (0.5-2.2) mmol/L Calcium (8.4-10.2) mg/dl Total Bilirubin (0.2-1.0) mg/dL AST (10-42) IU/L ALT (10-60) IU/L Alkaline Phosphatase (42-121) IU/L Troponin I (0.00-0.02) ng/ml B-Natriuretic Peptide (0-100) pg/ml Total Protein (6.7-8.2) g/dl Albumin (3.2-5.5) g/dl Globulin Albumin/Globulin Ratio Urine Color Dark yellow (YELLOW) Urine Appearance Slightly cloudy (CLEAR) Urine pH 7.0 (5.0-9.0) Ur Specific [place] 1.020 (1.005-1.030) Urine Protein Negative (NEGATIVE) Urine Glucose (UA) Negative (NEGATIVE) Urine Ketones Negative (NEGATIVE) Urine Occult Blood Negative (NEGATIVE) Urine Nitrite Negative (NEGATIVE) Urine Bilirubin Negative (NEGATIVE) Urine Urobilinogen >=8.0 H (0.2-1.0) mg/dL Ur Leukocyte Esterase Negative (NEGATIVE) Urine RBC 0-5 /HPF Urine WBC 0-5 (0-5/HPF) /HPF Ur Epithelial Cells Rare /HPF Amorphous Sediment Many (0/HPF) /HPF Urine Bacteria Few (0-FEW/HPF) /HPF Urine Mucus Few H /LPF Digoxin (0-2.5) ng/ml 07/03/18 Range/Units 06:18 WBC (5.0-10.0) 10^3/uL RBC (4.6-6.2) 10^6/uL Hgb (14.0-18.0) g/dL Hct (40.0-54.0) % MCV (80-100) fL MCH (27.0-34.0) pg MCHC (33.0-35.0) g/dL Plt Count (150-450) 10^3/uL Neut % (Auto) (42.2-75.2) % Lymph % (Auto) (20.5-50.1) % [place] % (Auto) (2-8) % Eos % (Auto) (1.0-3.0) % Baso % (Auto) (0.0-1.0) % Sodium 133 L (135-145) mmol/L Potassium 3.8 (3.6-5.0) mmol/L Chloride 104 (101-111) mmol/L Carbon Dioxide 22.0 (21.0-31.0) mmol/L Anion Gap 10.8 BUN 17 (7-18) mg/dL Creatinine 0.8 (0.6-1.3) mg/dL Est Cr Clr Drug Dosing 110.47 mL/min Estimated GFR (MDRD) > 60 BUN/Creatinine Ratio Glucose 79 (74-105) mg/dL Lactic Acid (0.5-2.2) mmol/L Calcium 8.4 (8.4-10.2) mg/dl Total Bilirubin (0.2-1.0) mg/dL AST (10-42) IU/L ALT (10-60) IU/L Alkaline Phosphatase (42-121) IU/L Troponin I (0.00-0.02) ng/ml B-Natriuretic Peptide (0-100) pg/ml Total Protein (6.7-8.2) g/dl Albumin (3.2-5.5) g/dl Globulin Albumin/Globulin Ratio Urine Color (YELLOW) Urine Appearance (CLEAR) Urine pH (5.0-9.0) Ur Specific [place] (1.005-1.030) Urine Protein (NEGATIVE) Urine Glucose (UA) (NEGATIVE) Urine Ketones (NEGATIVE) Urine Occult Blood (NEGATIVE) Urine Nitrite (NEGATIVE) Urine Bilirubin (NEGATIVE) Urine Urobilinogen (0.2-1.0) mg/dL Ur Leukocyte Esterase (NEGATIVE) Urine RBC /HPF Urine WBC (0-5/HPF) /HPF Ur Epithelial Cells /HPF Amorphous Sediment (0/HPF) /HPF Urine Bacteria (0-FEW/HPF) /HPF Urine Mucus /LPF Digoxin (0-2.5) ng/ml Med Orders - Current: Current Medications Acetaminophen (Tylenol) 650 mg PO Q4H PRN PRN Reason: Pain (Mild 1-3)/fever Last Admin: 07/03/18 08:07 Dose: 650 mg Albuterol/Ipratropium (Duoneb 3.0-0.5 Mg/3 Ml) 3 ml NEB BIDRT [facility] Last Admin: 07/03/18 07:20 Dose: 3 ml Alprazolam (Xanax) 0.5 mg PO BEDTIME [facility] Last Admin: 07/02/18 20:00 Dose: 0.5 mg Amiodarone HCl (Cordarone) 200 mg PO DAILY [facility] Last Admin: 07/03/18 08:10 Dose: 200 mg Aspirin (Halfprin) 81 mg PO DAILY [facility] Last Admin: 07/03/18 08:10 Dose: 81 mg Atorvastatin Calcium (Lipitor) 40 mg PO BEDTIME [facility] Last Admin: 07/02/18 20:00 Dose: 40 mg Budesonide (Pulmicort) 0.5 mg INH BIDRT [facility] Last Admin: 07/03/18 07:20 Dose: 0.5 mg Carvedilol (Coreg) 25 mg PO BID [facility] Last Admin: 07/03/18 08:15 Dose: 25 mg Digoxin (Lanoxin) 187.5 mcg PO DAILY [facility] Last Admin: 07/03/18 08:09 Dose: 187.5 mcg Levofloxacin/Dextrose 500 mg/ (Premix) 100 mls @ 100 mls/hr IV Q24H [facility] Isosorbide Mononitrate (Imdur) 30 mg PO DAILY [facility] Last Admin: 07/03/18 08:15 Dose: 30 mg Losartan Potassium (Cozaar) 25 mg PO DAILY [facility] Last Admin: 07/03/18 08:16 Dose: 25 mg Methylprednisolone (Medrol) mg PO ASDIRECTED [facility]; Protocol Montelukast Sodium (Singulair) 10 mg PO BEDTIME [facility] Last Admin: 07/02/18 20:01 Dose: 10 mg Nitroglycerin (Nitrostat) 0.4 mg SL ASDIRECTED PRN PRN Reason: CHEST PAIN Non-Formulary Medication (Mometasone Furoate) 2 sprays NASBOTH BID [facility] Non-Formulary Medication ([place]-3 Fatty Acids [Fish Oil]) 500 mg PO DAILY [facility] Non-Formulary Medication (Roflumilast [Daliresp]) 500 mcg PO DAILY [facility] Non-Formulary Medication (Tiotropium [place] [Spiriva Respimat]) 1 puff INH DAILY [facility] Ondansetron HCl (Zofran) 4 mg IV Q4H PRN PRN Reason: Nausea/Vomiting Topiramate (Topamax) 100 mg PO BEDTIME [facility] Last Admin: 07/02/18 20:00 Dose: 100 mg Discontinued Medications Albuterol/Ipratropium (Duoneb 3.0-0.5 Mg/3 Ml) Confirm Administered Dose 3 ml .ROUTE .STK-MED ONE Stop: 07/02/18 18:11 Last Admin: 07/02/18 19:04 Dose: Not Given Sodium Chloride (Normal Saline) 1,000 mls @ 999 mls/hr IV .BOLUS ONE Stop: 07/02/18 14:04 Last Admin: 07/02/18 13:14 Dose: 999 mls/hr Nitroglycerin (Nitrostat) 0.4 mg SL ASDIRECTED [facility] Ondansetron HCl (Zofran) 4 mg IV ONETIME ONE Stop: 07/02/18 13:23 Last Admin: 07/02/18 13:28 Dose: 4 mg - Exam General: Alert, Oriented HEENT: Pupils Equal Neck: Supple Lungs: Clear to Auscultation, Normal Respiratory Effort Cardiovascular: Regular Rate, Regular Rhythm GI/Abdominal Exam: Normal Bowel Sounds - Problem List Review Problem List Initiated/Reviewed/Updated: Yes - My Orders Last 24 Hours: My Active Orders 07/02/18 16:39 Patient Status [ADT] Routine Ambulate [RC] ASDIRECTED Bedrest Bathroom Privileges [RC] ASDIRECTED Bedrest Bedside Commode [RC] ASDIRECTED Height and Weight [RC] 06 Oxygen Therapy [RC] PRN Up ad Jennifer [RC] ASDIRECTED Up to Chair [RC] ASDIRECTED VTE/DVT Education [RC] PER UNIT ROUTINE Vital Signs [RC] Q4H Acetaminophen [Tylenol] 650 mg PO Q4H PRN Blood Culture x2 Reflex Set [OM.PC] Stat Resuscitation Status Routine 07/02/18 16:41 Intake and Output [RC] QSHIFT Sequential Compression Device [OM.PC] Per Unit Routine 07/02/18 16:45 methylPREDNISolone [Medrol] DOSE mg PO ASDIRECTED 07/02/18 17:00 Nitroglycerin [Nitrostat] 0.4 mg SL ASDIRECTED PRN Ondansetron [Zofran] 4 mg IV Q4H PRN 07/02/18 17:34 CULTURE BLOOD [BC] Stat 07/02/18 17:37 CULTURE BLOOD [BC] Stat 07/02/18 17:58 RT Aerosol Therapy [RC] ASDIRECTED 07/02/18 18:00 Albuterol/Ipratropium [DuoNeb 3.0-0.5 MG/3 ML] 3 ml NEB BIDRT Budesonide [Pulmicort] 0.5 mg INH BIDRT 07/02/18 21:00 ALPRAZolam [Xanax] 0.5 mg PO BEDTIME Carvedilol [Coreg] 25 mg PO BID Mometasone Furoate 2 sprays NASBOTH BID Montelukast [Singulair] 10 mg PO BEDTIME Topiramate [Topamax] 100 mg PO BEDTIME atorvaSTATin [Lipitor] 40 mg PO BEDTIME 07/02/18 Dinner 2 Gram Sodium Diet [DIET] Fluid Restriction [DIET] 07/03/18 09:00 Amiodarone [Cordarone] 200 mg PO DAILY Aspirin [Halfprin] 81 mg PO DAILY Digoxin [Lanoxin] 187.5 mcg PO DAILY Isosorbide Mononitrate [Imdur] 30 mg PO DAILY Levofloxacin/Dextrose 5%-Water [Levaquin in D5W 500 MG/100 ML] 500 mg Premix Bag 1 bag IV Q24H Losartan [Cozaar] 25 mg PO DAILY [place]-3 Fatty Acids [Fish Oil] 500 mg PO DAILY Roflumilast [Daliresp] 500 mcg PO DAILY Tiotropium [place] [Spiriva Respimat] 1 puff INH DAILY - Plan Plan:: 57 yo M with PMH of metastatic neuroendocrine carcinoma of the lungs who p/w fatigue, nausea, fever after chemo session. #Fever, cough Possible Community acquired pneumonia Start IV Levofloxacin follow up blood cultures x 2 Monitor vital signs closely #Nausea, improving #Poor appetite #Generalized weakness possibly 2/2 chemo Check Digoxin level: normal IV Zofran PRN nausea and vomiting #Thrombocytopenia 2/2 chemo no features of bleeding diasthesis monitor platelet levels for now will transfuse plt if less than 20K #Hx of CHF, NICM stable, not in acute exacerbation continue GMDT: losartan, carvedilol salt restriction fluid restriction #Hx of COPD stable, not in acute exacerbation continue budesonide, tiotropium Duonebs PRN #DVT ppx SCDs No chemoprophylaxis given thrombocytopenia #Code Status/Goals of Care Full code I discussed code status extensively with the patient Also discussed hospice as an option with the patient Patient wants to think about it and will contact PCP
[2018-07-03] MEDS: Levofloxacin/Dextrose 5%-Water 500 MG in Premix Bag 1 BAG IV SCH (09:34)
[2018-07-03] MEDS ORDERED: Sodium Chloride 0.9% 10 ML Syringe FLUSH PRN (09:38)
[2018-07-03] MEDS: atorvaSTATin 20 MG Tab PO SCH (20:42)
[2018-07-03] MEDS: Topiramate 100 MG Tab PO SCH (20:42)
[2018-07-03] MEDS: Montelukast 10 MG Tab PO SCH (20:43)
[2018-07-03] MEDS: ALPRAZolam 0.5 MG Tab PO SCH (20:43)
[2018-07-04] MEDS: Acetaminophen 325 MG Tab PO PRN (05:29)
[2018-07-04] MEDS: Budesonide 0.5 MG/2 ML Neb Susp INH SCH (07:21)
[2018-07-04] MEDS: Albuterol/Ipratropium 3.0-0.5 MG/3 ML Neb Soln NEB SCH (07:21)
[2018-07-04] MEDS: Amiodarone 200 MG Tab PO SCH (09:00)
[2018-07-04] MEDS: Digoxin 125 MCG Tab PO SCH (09:00)
[2018-07-04] MEDS: Levofloxacin/Dextrose 5%-Water 500 MG in Premix Bag 1 BAG IV SCH (09:01)
[2018-07-04] MEDS: Aspirin 81 MG Tab.EC PO SCH (09:01)
[2018-07-04] MEDS: Carvedilol 25 MG Tab PO SCH (09:36)
[2018-07-04] MEDS: Losartan 25 MG Tab PO SCH (09:36)
[2018-07-04] MEDS: Isosorbide Mononitrate 30 MG Tab.ER PO SCH (09:36)
[2018-07-04 09:38] VITALS: BP 87/58
--- NOTE | 2018-07-04 10:11 | PCM.DCSUM1 ---
Discharge Summary - Hospital Course Free Text/Narrative:: 57 yo M with PMH of multiple medical comorbidities including ischemic cardiomyopathy with an LVEF of around 15%, status post AICD, history of asthma, COPD, nocturnal hypoxia, on home O2, active smoking (light smoker currently and ex-heavy smoker) who was diagnosed with right lung large cell neuroendocrine carcinoma in 2014. 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 Follows regularly with Oncology and on , he was started on Gemcitabine 1000 mg/meter sq days 1,8,15 every 28 days. He had his last chemo session on 06/30/18 and since then has had significant fatigue, nausea, poor appetite and demotivated. He noted fever with temp of 101 F and came to the ED. In the ED, chest xray is clear, and urinalysis is normal. He has a mild cough, non-productive and was placed on levaquin by the Oncologist in his last visit. No chest pain, no leg swelling, no abdominal pain, no dysuria or hematuria. He was continued on IV levaquin during admission. BLood cultures were negative. He had a low grade fever during the admission, however his nausea and poor appetite improved. Will plan to discharge on oral levaquin. Follow up with PCP this week in 2-3 days. - Discharge Data Discharge Date: 07/04/18 Discharge Disposition: Home, Self-Care 01 Condition: Good - Patient Instructions Diet: Regular Diet as Tolerated Activity: As Tolerated - Discharge Plan *PRESCRIPTION DRUG MONITORING PROGRAM REVIEWED*: No *COPY OF PRESCRIPTION DRUG MONITORING REPORT IN PATIENT RAJENDRA: No Home Medications: Home Meds Aspirin [Halfprin] 81 mg PO DAILY 01/30/14 [History] Montelukast [Singulair] 10 mg PO BEDTIME 01/30/14 [History] Pomerene-3 Fatty Acids [Fish Oil] 500 mg PO DAILY 01/30/14 [History] ALPRAZolam [Xanax] 0.5 mg PO BEDTIME 09/29/14 [History] Digoxin 1.5 tab PO DAILY 09/29/14 [History] Carvedilol 25 mg PO BID 12/23/14 [History] Losartan Potassium 25 mg PO DAILY 12/23/14 [History] Roflumilast [Daliresp] 500 mcg PO DAILY 03/22/15 [History] Budesonide [Pulmicort] 0.5 mg INH BID 11/28/15 [History] Isosorbide Mononitrate [Isosorbide Mononitrate ER] 30 mg PO DAILY 11/28/15 [ History] Mometasone Furoate [Nasonex] 2 sprays NASBOTH BID 11/28/15 [History] Nitroglycerin [Nitrostat] 0.4 mg SL ASDIRECTED 11/28/15 [History] Tiotropium [place] [Spiriva Respimat] 1 puff INH DAILY 11/28/15 [History] Topiramate [Topamax] 100 mg PO BEDTIME 11/28/15 [History] atorvaSTATin [Lipitor] 40 mg PO BEDTIME 11/28/15 [History] Amiodarone [Cordarone] 200 mg PO DAILY 07/02/16 [History] methylPREDNISolone [Medrol] 1 tab PO ASDIRECTED 10/17/17 [History] levoFLOXacin [Levaquin] 500 mg PO DAILY 07/02/18 [History] Patient Handouts: Nausea and Vomiting, Adult, [id number] Referrals: PCP,None [Primary Care Provider] - - General Info Admission Dx/Problem (Free Text: Fever Subjective Update: Cough has improved this morning. Still running intermittent low grade fever Blood cultures negative Has a port, but not likely having CLABSI - Review of Systems General: Reports: Fever HEENT: Reports: No Symptoms Pulmonary: Reports: No Symptoms Cardiovascular: Reports: No Symptoms Gastrointestinal: Reports: No Symptoms Genitourinary: Reports: No Symptoms - Patient Data Vitals - Most Recent: Last Vital Signs Temp 37.8 C 07/04/18 09:00 Pulse 75 07/04/18 09:00 Resp 20 07/04/18 07:48 BP 87/58 L 07/04/18 09:00 Pulse Ox 94 L 07/04/18 07:48 Weight - Most Recent: 80.739 kg I&O - Last 24 hours: Intake & Output 07/03/18 07/04/18 07/04/18 22:59 06:59 14:59 Intake Total 100 340 Output Total 200 Balance -100 340 AIMEE Results - Last 24 hrs: Microbiology 07/02/18 17:37 Aerobic Blood Culture - Preliminary Blood - Venous - Lab Draw NO GROWTH AFTER 1 DAY Anaerobic Blood Culture - Preliminary NO GROWTH AFTER 1 DAY 07/02/18 17:34 Aerobic Blood Culture - Preliminary Blood - Venous NO GROWTH AFTER 1 DAY Anaerobic Blood Culture - Preliminary NO GROWTH AFTER 1 DAY 07/02/18 13:06 Aerobic Blood Culture - Preliminary Blood NO GROWTH AFTER 1 DAY Anaerobic Blood Culture - Preliminary NO GROWTH AFTER 1 DAY Med Orders - Current: Current Medications Acetaminophen (Tylenol) 650 mg PO Q4H PRN PRN Reason: Pain (Mild 1-3)/fever Last Admin: 07/04/18 05:29 Dose: 650 mg Albuterol/Ipratropium (Duoneb 3.0-0.5 Mg/3 Ml) 3 ml NEB BIDRT [facility] Last Admin: 07/04/18 07:21 Dose: 3 ml Alprazolam (Xanax) 0.5 mg PO BEDTIME [facility] Last Admin: 07/03/18 20:43 Dose: 0.5 mg Amiodarone HCl (Cordarone) 200 mg PO DAILY [facility] Last Admin: 07/04/18 09:00 Dose: 200 mg Aspirin (Halfprin) 81 mg PO DAILY [facility] Last Admin: 07/04/18 09:01 Dose: 81 mg Atorvastatin Calcium (Lipitor) 40 mg PO BEDTIME [facility] Last Admin: 07/03/18 20:42 Dose: 40 mg Budesonide (Pulmicort) 0.5 mg INH BIDRT [facility] Last Admin: 07/04/18 07:21 Dose: 0.5 mg Carvedilol (Coreg) 25 mg PO BID [facility] Last Admin: 07/04/18 09:36 Dose: Not Given Digoxin (Lanoxin) 187.5 mcg PO DAILY [facility] Last Admin: 07/04/18 09:00 Dose: 187.5 mcg Levofloxacin/Dextrose 500 mg/ (Premix) 100 mls @ 100 mls/hr IV Q24H [facility] Last Admin: 07/04/18 09:01 Dose: 100 mls/hr Isosorbide Mononitrate (Imdur) 30 mg PO DAILY [facility] Last Admin: 07/04/18 09:36 Dose: Not Given Losartan Potassium (Cozaar) 25 mg PO DAILY [facility] Last Admin: 07/04/18 09:36 Dose: Not Given Methylprednisolone (Medrol) mg PO ASDIRECTED [facility]; Protocol Montelukast Sodium (Singulair) 10 mg PO BEDTIME [facility] Last Admin: 07/03/18 20:43 Dose: 10 mg Nitroglycerin (Nitrostat) 0.4 mg SL ASDIRECTED PRN PRN Reason: CHEST PAIN Non-Formulary Medication (Mometasone Furoate) 2 sprays NASBOTH BID [facility] Non-Formulary Medication (Pomerene-3 Fatty Acids [Fish Oil]) 500 mg PO DAILY [facility] Non-Formulary Medication (Roflumilast [Daliresp]) 500 mcg PO DAILY [facility] Non-Formulary Medication (Tiotropium [place] [Spiriva Respimat]) 1 puff INH DAILY [facility] Ondansetron HCl (Zofran) 4 mg IV Q4H PRN PRN Reason: Nausea/Vomiting Sodium Chloride (Saline Flush) 10 ml FLUSH ASDIRECTED PRN PRN Reason: Keep Vein Open Last Admin: 07/03/18 09:46 Dose: 10 ml Topiramate (Topamax) 100 mg PO BEDTIME [facility] Last Admin: 07/03/18 20:42 Dose: 100 mg Discontinued Medications Albuterol/Ipratropium (Duoneb 3.0-0.5 Mg/3 Ml) Confirm Administered Dose 3 ml .ROUTE .STK-MED ONE Stop: 07/02/18 18:11 Last Admin: 07/02/18 19:04 Dose: Not Given Sodium Chloride (Normal Saline) 1,000 mls @ 999 mls/hr IV .BOLUS ONE Stop: 07/02/18 14:04 Last Admin: 07/02/18 13:14 Dose: 999 mls/hr Nitroglycerin (Nitrostat) 0.4 mg SL ASDIRECTED [facility] Ondansetron HCl (Zofran) 4 mg IV ONETIME ONE Stop: 07/02/18 13:23 Last Admin: 07/02/18 13:28 Dose: 4 mg - Exam General: Reports: Alert, Oriented HEENT: Reports: Pupils Equal Neck: Reports: Supple Lungs: Reports: Normal Respiratory Effort Cardiovascular: Reports: Regular Rate, Regular Rhythm GI/Abdominal Exam: Normal Bowel Sounds, Soft, Non-Tender
== END 2018-07-04 10:50 | disposition home or self-care (01) ==
LOC: DL.ED 12:46 → UNDOADMOB 14:40 → DL.MS 14:40
PROVIDERS: ADMIT Hospitalist; ATTEND Hospitalist
DX: R50.9 Fever, unspecified (principal); R11.0 Nausea; D69.59 Other secondary thrombocytopenia; C34.91 Malignant neoplasm of unspecified part of right bronchus or lung; C78.7 Secondary malignant neoplasm of liver and intrahepatic bile duct; I11.9 Hypertensive heart disease without heart failure; I43 Cardiomyopathy in diseases classified elsewhere; J44.9 Chronic obstructive pulmonary disease, unspecified; F41.9 Anxiety disorder, unspecified; F32.9 Major depressive disorder, single episode, unspecified; F17.210 Nicotine dependence, cigarettes, uncomplicated; Z79.82 Long term (current) use of aspirin; Z79.899 Other long term (current) drug therapy; Z99.81 Dependence on supplemental oxygen; Z88.0 Allergy status to penicillin; Z92.21 Personal history of antineoplastic chemotherapy
CPT/HCPCS: 36415; 71045; 80048; 80053; 80162; 81001; 83605; 83880; 84484; 85025; 87040; 93005; 94640; 96361; 96374; 99284; A9270; J1642; J1956; J2405; J7030; J7050; 96365; 96366; 96375; G0378; J7620-GY

== ENCOUNTER 2018-10-29 08:44 | Emergency (ER) | payer MEDICARE, MEDICAID ==
[2018-10-29 08:54] VITALS: BP 100/60
--- NOTE | 2018-10-29 09:21 | EDM.PDOC ---
<Deana Ba - Last Filed: 10/29/18 11:28> ED HPI GENERAL MEDICAL PROBLEM - General Chief Complaint: Respiratory Problem Stated Complaint: HARD TO BREATH [id number] Time Seen by Provider: 10/29/18 09:05 Source of Information: Reports: Patient, RN History Limitations: Reports: No Limitations - History of Present Illness INITIAL COMMENTS - FREE TEXT/NARRATIVE: Patient is 58 year old with significant PMH of metastatic lung cancer and COPD, who presents to ER for SOB that started today. 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 SOB is only present with exertion. Also admits to sneezing, rhinorrhea, and non-productive cough. He is a former smoker, quit smoking on 2017. He has been using his albuterol 2-3 times a day and nebulizer 4-5 times a day for along time. Denies any use of long acting inhaler. patient also complains of nausea and vomiting for 2 days. He has had multiple episodes with no blood. Has decreased appetite but is drinking plenty of fluids. He is unable to keep anything down. Patient's last chemotherapy was last Wednesday. His oncologist gave him anti-emetics but they are not helping. Patient is not sure about the names of the medications. Denies fever, sore throat, chest pain, abdominal pain, diarrhea, constipation. Onset: Today Duration: Day(s): Associated Symptoms: Reports: Cough, Loss of Appetite, Nausea/Vomiting, Shortness of Breath Right Chest Pain Score (Numeric/FACES): 5 - Related Data Allergies Allergy/AdvReac Type Severity Reaction Status Date / Time doxycycline Allergy Headache Verified 10/03/18 08:11 Penicillins Allergy Hives Verified 10/03/18 08:11 Home Meds: Home Meds Aspirin [Halfprin] 81 mg PO DAILY 01/30/14 [History] Montelukast [Singulair] 10 mg PO BEDTIME 01/30/14 [History] [place]-3 Fatty Acids [Fish Oil] 1,000 mg PO DAILY 01/30/14 [History] ALPRAZolam [Xanax] 1 mg PO BEDTIME 09/29/14 [History] Roflumilast [Daliresp] 500 mcg PO DAILY 12/23/14 [History] Mometasone Furoate [Nasonex] 2 sprays NASBOTH BID 11/28/15 [History] Nitroglycerin [Nitrostat] 0.4 mg SL ASDIRECTED 11/28/15 [History] atorvaSTATin [Lipitor] 40 mg PO BEDTIME 11/28/15 [History] Amiodarone [Cordarone] 200 mg PO DAILY 07/02/16 [History] Albuterol [Ventolin HFA] 2 puff INH Q6H PRN 08/29/18 [History] Baclofen 10 mg PO BID 08/29/18 [History] Furosemide [Lasix] 80 mg PO DAILY 08/29/18 [History] Loratadine [Claritin] 10 mg PO DAILY 08/29/18 [History] Pantoprazole Sodium [Protonix] 40 mg PO DAILY 08/29/18 [History] Sertraline [Zoloft] 50 mg PO DAILY 08/29/18 [History] buPROPion [Wellbutrin SR] 150 mg PO BID 08/29/18 [History] Albuterol [Proventil Neb Soln] 2.5 mg INH TID 10/03/18 [History] Budesonide [Pulmicort] 0.25 mg IH BID 10/03/18 [History] Carvedilol 6.25 mg PO DAILY 10/03/18 [History] Digoxin 375 mcg PO DAILY 10/03/18 [History] Potassium Bicarbonate/Cit Ac [Effer-K] 20 meq PO DAILY 10/03/18 [History] Past Medical History - Past Health History Medical/Surgical History: Denies Medical/Surgical History HEENT History: Reports: Other (See Below) Other HEENT History: fluid in right ear, also c/o ringing in the ear drum Cardiovascular History: Reports: Automatic Implantable Cardioverter Defibrillators, CAD, High Cholesterol, Hypertension, [place], Pacemaker, PTCA, Stents Respiratory History: Reports: COPD Other Respiratory History: lung cancer Gastrointestinal History: Reports: None Genitourinary History: Reports: Other (See Below) Other Genitourinary History: kidney CA Musculoskeletal History: Reports: Arthritis Other Musculoskeletal History: shoulder Neurological History: Reports: Migraines Psychiatric History: Reports: Anxiety, Depression Endocrine/Metabolic History: Reports: None Other Endocrine/Metabolic History: states was told blood sugars are ? prediabetic Hematologic History: Reports: None Immunologic History: Reports: None Oncologic (Cancer) History: Reports: Liver, Lung Other Oncologic History: Primary Lung CA with Mets to liver and kidney, Pt has port for chemo Dermatologic History: Reports: None - Infectious Disease History Infectious Disease History: Reports: Chicken Pox, Measles, Mumps - Past Surgical History HEENT Surgical History: Reports: None Cardiovascular Surgical History: Reports: Coronary Artery Bypass Respiratory Surgical History: Reports: Lung Biopsies GI Surgical History: Reports: None Male Surgical History: Reports: None Endocrine Surgical History: Reports: None Musculoskeletal Surgical History: Reports: None Other Musculoskeletal Surgeries/Procedures:: states legs feel weak and unable to stand for long periods of time. Social & Family History - Family History Family Medical History: Noncontributory - Tobacco Use Smoking Status *Q: Former Smoker Used Tobacco, but Quit: Yes Month/Year Tobacco Last Used: 2017 - Caffeine Use Caffeine Use: Reports: Coffee - Recreational Drug Use Recreational Drug Use: No ED ROS GENERAL - Review of Systems Review Of Systems: ROS reveals no pertinent complaints other than HPI. ED EXAM, GENERAL - Physical Exam Exam: See Below Exam Limited By: No Limitations General Appearance: Alert, WD/WN, No Apparent Distress Eye Exam: Bilateral Eye: Normal Inspection, PERRL Ears: Normal External Exam Nose: Normal Inspection Throat/Mouth: Normal Inspection, Normal Lips, Normal Oropharynx, Other (poor dentition) Head: Atraumatic, Normocephalic Respiratory/Chest: No Respiratory Distress, Decreased Breath Sounds. No: Respiratory Distress Cardiovascular: Normal Peripheral Pulses, Regular Rate, Rhythm, No Edema GI/Abdominal: Normal Bowel Sounds, Soft, Non-Tender (Male) Exam: Deferred Rectal (Males) Exam: Deferred Back Exam: Normal Inspection Extremities: Normal Inspection, No Pedal Edema Neurological: Alert, Oriented Course - Vital Signs Last Recorded V/S: Last Vital Signs Temp 97.2 F 10/29/18 08:49 Pulse 76 10/29/18 08:49 Resp 16 10/29/18 08:49 BP 100/60 10/29/18 08:49 Pulse Ox 99 10/29/18 08:49 - Orders/Labs/Meds Labs: Laboratory Tests 10/29/18 10/29/18 Range/Units 09:43 09:43 WBC 5.9 (5.0-10.0) 10^3/uL RBC 4.22 L (4.6-6.2) 10^6/uL Hgb 13.6 L (14.0-18.0) g/dL Hct 40.2 (40.0-54.0) % MCV 95.3 D (80-100) fL MCH 32.2 (27.0-34.0) pg MCHC 33.8 (33.0-35.0) g/dL Plt Count 147 L (150-450) 10^3/uL Neut % (Auto) 73.2 (42.2-75.2) % Lymph % (Auto) 18.4 L (20.5-50.1) % [place] % (Auto) 4.4 (2-8) % Eos % (Auto) 3.2 H (1.0-3.0) % Baso % (Auto) 0.8 (0.0-1.0) % Sodium 132 L (135-145) mmol/L Potassium 3.0 L (3.6-5.0) mmol/L Chloride 95 L (101-111) mmol/L Carbon Dioxide 25.0 (21.0-31.0) mmol/L Anion Gap 15.0 BUN 18 (7-18) mg/dL Creatinine 1.2 (0.6-1.3) mg/dL Est Cr Clr Drug Dosing 68.04 mL/min Estimated GFR (MDRD) > 60 BUN/Creatinine Ratio 15.00 Glucose 88 (74-105) mg/dL Calcium 9.2 (8.4-10.2) mg/dl Total Bilirubin 1.0 (0.2-1.0) mg/dL AST 29 (10-42) IU/L ALT 23 (10-60) IU/L Alkaline Phosphatase 99 (42-121) IU/L Total Protein 7.1 (6.7-8.2) g/dl Albumin 3.7 (3.2-5.5) g/dl Globulin 3.4 Albumin/Globulin Ratio 1.09 Meds: Medications Discontinued Medications Generic Name Dose Route Start Last Admin Trade Name Freq PRN Reason Stop Dose Admin Potassium Chloride 40 meq 10/29/18 11:26 10/29/18 11:32 Klor-Con 10 PO 10/29/18 11:27 40 meq ONETIME ONE Administration Promethazine HCl 25 mg 10/29/18 09:30 10/29/18 09:38 Phenergan IM 10/29/18 09:31 25 mg ONETIME ONE Administration Departure - Departure Time of Disposition: 11:18 Disposition: Home, Self-Care 01 Condition: Fair Clinical Impression: Chemotherapy-induced nausea and vomiting, COPD (chronic obstructive pulmonary disease) with chronic bronchitis Metastatic lung cancer (metastasis from lung to other site) Qualifiers: Laterality: left Qualified Code(s): C34.92 - Malignant neoplasm of unspecified part of left bronchus or lung - Discharge Information *PRESCRIPTION DRUG MONITORING PROGRAM REVIEWED*: Not Applicable *COPY OF PRESCRIPTION DRUG MONITORING REPORT IN PATIENT RAJENDRA: Not Applicable Instructions: Chronic Obstructive Pulmonary Disease Exacerbation, [id number] , Nausea and Vomiting, Adult Forms: ED Department Discharge Additional Instructions: Follow up with PCP on Wednesday, to discuss long acting inhalers for COPD Follow up with Oncologist on Wednesday, due to increased size of lung mass Care Plan Goals: Nausea and vomiting improved with promethazine - tolerated oral intake - continue oral hydration - Low potassium, one dose of Kdur 40 mEq given SOB with exertion - secondary to COPD and Increased size of lung mass with mets - follow up with PCP and oncologist - discuss the use of long acting beta agonist or inhaler corticosteroid - continue with albuterol inhaler and neb as needed - CXR - no pneumonia - CBC normal WBC <Fidelina Linn - Last Filed: 10/29/18 12:23> Course - Orders/Labs/Meds Labs: Laboratory Tests 10/29/18 10/29/18 Range/Units 09:43 09:43 WBC 5.9 (5.0-10.0) 10^3/uL RBC 4.22 L (4.6-6.2) 10^6/uL Hgb 13.6 L (14.0-18.0) g/dL Hct 40.2 (40.0-54.0) % MCV 95.3 D (80-100) fL MCH 32.2 (27.0-34.0) pg MCHC 33.8 (33.0-35.0) g/dL Plt Count 147 L (150-450) 10^3/uL Neut % (Auto) 73.2 (42.2-75.2) % Lymph % (Auto) 18.4 L (20.5-50.1) % [place] % (Auto) 4.4 (2-8) % Eos % (Auto) 3.2 H (1.0-3.0) % Baso % (Auto) 0.8 (0.0-1.0) % Sodium 132 L (135-145) mmol/L Potassium 3.0 L (3.6-5.0) mmol/L Chloride 95 L (101-111) mmol/L Carbon Dioxide 25.0 (21.0-31.0) mmol/L Anion Gap 15.0 BUN 18 (7-18) mg/dL Creatinine 1.2 (0.6-1.3) mg/dL Est Cr Clr Drug Dosing 68.04 mL/min Estimated GFR (MDRD) > 60 BUN/Creatinine Ratio 15.00 Glucose 88 (74-105) mg/dL Calcium 9.2 (8.4-10.2) mg/dl Total Bilirubin 1.0 (0.2-1.0) mg/dL AST 29 (10-42) IU/L ALT 23 (10-60) IU/L Alkaline Phosphatase 99 (42-121) IU/L Total Protein 7.1 (6.7-8.2) g/dl Albumin 3.7 (3.2-5.5) g/dl Globulin 3.4 Albumin/Globulin Ratio 1.09 - Radiology Interpretation Free Text/Narrative:: Chest xray: FINDINGS: Tubes, catheters and devices: There is a right jugular port present with the catheter tip at/near the cavoatrial junction. There is a left subclavian combination dual chamber pacemaker/AICD device. Lungs: There is a mass-like opacity adjacent to the posterior margin of the left heart border. This is larger and more defined than the opacities on the prior comparison radiographs. There is stable interstitial lung disease in the right lung apex which may reflect prior inflammation or radiation pneumonitis/fibrosis if the patient had that. There is overlying pleural thickening. Pleural space: No pleural effusion or pneumothorax. Heart/Mediastinum: The heart is not enlarged. The mediastinal contours are normal. Bones/joints: Multilevel disc degeneration present in the thoracic spine. IMPRESSION: Suspect a lung mass adjacent to the left heart border. CT CHEST could clarify, if clinically indicated. Thank you for allowing us to participate in the care of your patient. Dictated and Authenticated by: Tristan Vela MD 10/29/2018 9:56 AM Central Time ([place] & [place]) See rad report - Re-Assessments/Exams Free Text/Narrative Re-Assessment/Exam: 10/29/18 12:22 I saw and evaluated the patient. Discussed with resident and agree with resident s findings and plan as documented in the residents note.
[2018-10-29] MEDS ORDERED: Promethazine 25 MG/ML SDV IM ONE (09:30)
[2018-10-29 10:10] LABS: CHLORIDE,CL 95 mmol/L (101-111); SODIUM,NA 132 mmol/L (135-145)
[2018-10-29] MEDS ORDERED: Potassium Chloride 10 MEQ Tab.ER PO ONE (11:26)
== END 2018-10-29 11:33 | disposition home or self-care (01) ==
LOC: DL.ED 08:44
DX: R11.2 Nausea with vomiting, unspecified (principal); T45.1X5A Adverse effect of antineoplastic and immunosuppressive drugs, initial encounter; C34.92 Malignant neoplasm of unspecified part of left bronchus or lung; J44.9 Chronic obstructive pulmonary disease, unspecified; F41.9 Anxiety disorder, unspecified; F32.9 Major depressive disorder, single episode, unspecified; Z88.1 Allergy status to other antibiotic agents; Z88.0 Allergy status to penicillin; Z79.899 Other long term (current) drug therapy; Z79.82 Long term (current) use of aspirin; Z87.891 Personal history of nicotine dependence
CPT/HCPCS: 36415; 71046; 80053; 85025; 87804; 99285; A9270; J2550

== ENCOUNTER 2018-11-21 14:26 | Observation (INO) | payer MEDICARE, MEDICAID ==
[2018-11-21] MEDS ORDERED: ONDANSETRON 8 MG PO PRN (16:13)
[2018-11-21] MEDS ORDERED: PROCHLORPERAZINE 10 MG PO PRN (16:13)
[2018-11-21] MEDS ORDERED: Morphine 2 MG/ML Syringe IVPUSH PRN (16:18)
[2018-11-21] MEDS ORDERED: oxyCODONE 5 MG Tab PO PRN (16:18)
[2018-11-21] MEDS ORDERED: Sodium Chloride 0.9% 10 ML Syringe FLUSH PRN (16:18)
[2018-11-21] MEDS ORDERED: Zolpidem 5 MG Tab PO PRN (16:18)
[2018-11-21] MEDS ORDERED: Docusate Sodium 100 MG Cap PO PRN (16:18)
[2018-11-21] MEDS ORDERED: Acetaminophen 325 MG Tab PO PRN (16:18)
[2018-11-21] MEDS ORDERED: Sodium Chloride 0.9% 1,000 ML IV SCH ×2 (16:30→18:00)
[2018-11-21] MEDS ORDERED: guaiFENesin/Dextromethorphan 100-10 MG/5 ML Soln 5 ML Cup PO PRN (16:56)
[2018-11-21 17:01] LABS: ANION GAP 18.7; CHLORIDE,CL 91 mmol/L (101-111); SODIUM,NA 131 mmol/L (135-145)
--- NOTE | 2018-11-21 17:12 | PCM.HP ---
H&P History of Present Illness - General Date of Service: 11/21/18 Admit Problem/Dx: Admission Diagnosis/Problem Admission Diagnosis/Problem Nausea and vomiting Source of Information: Patient - History of Present Illness Initial Comments - Free Text/Narative: 58-year-old gentleman presented with nausea, vomiting, weight loss. The patient has metastatic lung cancer followed by Dr. Acosta Has been on weekly chemotherapy. The patient has chronic pain in lower extremities. He is describing as burning pain. He has tried to take morphine without help. He stopped taking the morphine pills because of nausea and vomiting. Week ago he was given fentanyl patch. On the day of admission the patient presented to his primary care physician. He was complaining of unable to eat, nausea, vomiting. Concern was about 13 pound weight loss over a week. The patient says the fentanyl patch did not help his pain either. He has very little oral intake. - Related Data Allergies/Adverse Reactions: Allergies Allergy/AdvReac Type Severity Reaction Status Date / Time doxycycline Allergy Headache Verified 11/21/18 15:57 Penicillins Allergy Hives Verified 11/21/18 15:57 Home Medications: Home Meds Aspirin [Halfprin] 81 mg PO DAILY 01/30/14 [History] Montelukast [Singulair] 10 mg PO BEDTIME 01/30/14 [History] Jolon-3 Fatty Acids [Fish Oil] 1,000 mg PO DAILY 01/30/14 [History] ALPRAZolam [Xanax] 1 mg PO BEDTIME 09/29/14 [History] Roflumilast [Daliresp] 500 mcg PO DAILY 12/23/14 [History] Mometasone Furoate [Nasonex] 2 sprays NASBOTH BID PRN 11/28/15 [History] Nitroglycerin [Nitrostat] 0.4 mg SL ASDIRECTED 11/28/15 [History] atorvaSTATin [Lipitor] 40 mg PO BEDTIME 11/28/15 [History] Amiodarone [Cordarone] 200 mg PO DAILY 07/02/16 [History] Albuterol [Ventolin HFA] 2 puff INH Q6H PRN 08/29/18 [History] Baclofen 10 mg PO TID 08/29/18 [History] Furosemide [Lasix] 80 mg PO DAILY 08/29/18 [History] Loratadine [Claritin] 10 mg PO DAILY 08/29/18 [History] Pantoprazole Sodium [Protonix] 40 mg PO DAILY 08/29/18 [History] Sertraline [Zoloft] 50 mg PO DAILY 08/29/18 [History] buPROPion [Wellbutrin SR] 150 mg PO BID 08/29/18 [History] Albuterol [Proventil Neb Soln] 2.5 mg INH TID 10/03/18 [History] Budesonide [Pulmicort] 0.25 mg IH BID 10/03/18 [History] Carvedilol 6.25 mg PO DAILY 10/03/18 [History] Digoxin 375 mcg PO DAILY 10/03/18 [History] Ondansetron [Zofran Odt] 8 mg PO ASDIRECTED PRN 11/21/18 [History] Potassium Chloride 20 meq PO DAILY 11/21/18 [History] Prochlorperazine [Compazine] 10 mg PO ASDIRECTED PRN 11/21/18 [History] fentaNYL [Duragesic] 12 mcg TRDERM ASDIRECTED 11/21/18 [History] rOPINIRole [Requip] 0.25 mg PO BEDTIME 11/21/18 [History] Past Medical History - Past Health History Medical/Surgical History: Denies Medical/Surgical History HEENT History: Reports: Other (See Below) Other HEENT History: fluid in right ear, also c/o ringing in the ear drum Cardiovascular History: Reports: Automatic Implantable Cardioverter Defibrillators, CAD, High Cholesterol, Hypertension, PR, Pacemaker, PTCA, Stents Respiratory History: Reports: COPD Other Respiratory History: lung cancer with mets to liver and kidney mets Gastrointestinal History: Reports: None Genitourinary History: Reports: Other (See Below) Other Genitourinary History: kidney CA Musculoskeletal History: Reports: Arthritis Other Musculoskeletal History: shoulder Neurological History: Reports: Migraines Psychiatric History: Reports: Anxiety, Depression Endocrine/Metabolic History: Reports: None Other Endocrine/Metabolic History: states was told blood sugars are ? prediabetic Hematologic History: Reports: None Immunologic History: Reports: None Oncologic (Cancer) History: Reports: Liver, Lung Other Oncologic History: Primary Lung CA with Mets to liver and kidney, Pt has port for chemo. Last chemo 11/16/18 Dermatologic History: Reports: None - Infectious Disease History Infectious Disease History: Reports: Shingles - Past Surgical History HEENT Surgical History: Reports: None Cardiovascular Surgical History: Reports: Coronary Artery Bypass Respiratory Surgical History: Reports: Lung Biopsies GI Surgical History: Reports: None Male Surgical History: Reports: None Endocrine Surgical History: Reports: None Musculoskeletal Surgical History: Reports: None Other Musculoskeletal Surgeries/Procedures:: states legs feel weak and unable to stand for long periods of time. Social & Family History - Family History Family Medical History: Noncontributory - Tobacco Use Smoking Status *Q: Former Smoker Used Tobacco, but Quit: Yes Month/Year Tobacco Last Used: 08/21 Second Hand Smoke Exposure: No - Caffeine Use Caffeine Use: Reports: Coffee - Recreational Drug Use Recreational Drug Use: No H&P Review of Systems - Review of Systems: Review Of Systems: See Below General: Denies: Fever Pulmonary: Reports: Cough. Denies: Shortness of Breath, Sputum Cardiovascular: Denies: Chest Pain Gastrointestinal: Reports: Nausea, Vomiting (Clear liquid). Denies: Abdominal Pain, Constipation, Diarrhea (Last bowel movement the day before admission), Distension Musculoskeletal: Reports: Leg Pain (Burning bilateral upper thighs.) Psychiatric: Denies: Confusion Neurological: Denies: Dizziness, Numbness, Seizure, Syncope, Trouble Speaking Exam - Exam Exam: See Below - Vital Signs Vital Signs: Last Vital Signs Temp 36.5 C 11/21/18 14:36 Pulse 69 11/21/18 14:36 Resp 18 11/21/18 14:36 BP 104/69 11/21/18 14:36 Pulse Ox 99 11/21/18 14:36 Weight: 67.041 kg - Exam Quality Assessment: No: Supplemental Oxygen Neck: Supple Lungs: Clear to Auscultation, Normal Respiratory Effort Cardiovascular: Regular Rate, Regular Rhythm GI/Abdominal Exam: Normal Bowel Sounds, Soft, Non-Tender. No: Distended, Guarding Extremities: No Pedal Edema Skin: Warm, Dry Neuro Extensive - Mental Status: Alert, Oriented x3, Normal Mood/Affect - Patient Data Lab Results Last 24 hrs: Laboratory Results - last 24 hr 11/21/18 11/21/18 Range/Units 16:27 16:27 WBC 6.0 (5.0-10.0) 10^3/uL RBC 4.16 L (4.6-6.2) 10^6/uL Hgb 13.1 L (14.0-18.0) g/dL Hct 37.2 L (40.0-54.0) % MCV 89.4 D (80-100) fL MCH 31.5 (27.0-34.0) pg MCHC 35.2 H (33.0-35.0) g/dL Plt Count 173 (150-450) 10^3/uL Neut % (Auto) 69.2 (42.2-75.2) % Lymph % (Auto) 8.1 L (20.5-50.1) % [place] % (Auto) 20.3 H (2-8) % Eos % (Auto) 1.7 (1.0-3.0) % Baso % (Auto) 0.7 (0.0-1.0) % Add Manual Diff Yes Sodium 131 L (135-145) mmol/L Potassium 2.7 L (3.6-5.0) mmol/L Chloride 91 L (101-111) mmol/L Carbon Dioxide 24.0 (21.0-31.0) mmol/L Anion Gap 18.7 BUN 12 (7-18) mg/dL Creatinine 1.1 (0.6-1.3) mg/dL Est Cr Clr Drug Dosing 68.56 mL/min Estimated GFR (MDRD) > 60 Glucose 99 (74-105) mg/dL Calcium 8.9 (8.4-10.2) mg/dl Phosphorus 3.4 (2.5-4.6) mg/dL Magnesium 2.0 (1.8-2.5) mg/dL Total Bilirubin 1.2 H (0.2-1.0) mg/dL Direct Bilirubin 0.3 H (0.0-0.2) mg/dL Indirect Bilirubin 0.9 AST 44 H (10-42) IU/L ALT 34 (10-60) IU/L Alkaline Phosphatase 106 (42-121) IU/L Total Protein 7.2 (6.7-8.2) g/dl Albumin 3.7 (3.2-5.5) g/dl Globulin 3.5 Albumin/Globulin Ratio 1.06 Result Diagrams: 11/21/18 16:27 11/21/18 16:27 - Problem List (1) Metastatic primary lung cancer SNOMED Code(s): 02655495, 007191578 ICD Code: C34.90 - MALIGNANT NEOPLASM OF UNSP PART OF UNSP BRONCHUS OR LUNG Status: Acute Current Visit: No Qualifiers: Laterality: left Qualified Code(s): C34.92 - Malignant neoplasm of unspecified part of left bronchus or lung (2) Nausea SNOMED Code(s): 073324256 ICD Code: R11.0 - NAUSEA Status: Acute Current Visit: No (3) Neuralgia SNOMED Code(s): 22476854 ICD Code: M79.2 - NEURALGIA AND NEURITIS, UNSPECIFIED Status: Acute Current Visit: No (4) Neuropathic pain, leg, bilateral SNOMED Code(s): 918569240 ICD Code: G57.91 - UNSPECIFIED MONONEUROPATHY OF RIGHT LOWER LIMB; G57.92 - UNSPECIFIED MONONEUROPATHY OF LEFT LOWER LIMB Status: Acute Current Visit: No (5) Vomiting SNOMED Code(s): 339582499 ICD Code: R11.10 - VOMITING, UNSPECIFIED Status: Acute Current Visit: No Qualifiers: Vomiting type: unspecified Vomiting Intractability: non-intractable Nausea presence: with nausea Qualified Code(s): R11.2 - Nausea with vomiting, unspecified Problem List Initiated/Reviewed/Updated: Yes Orders Last 24hrs: Active Orders 24 hr Category Date Time Status Patient Status [ADT] Routine ADT 11/21/18 16:18 Active Antiembolic Devices [RC] PER UNIT ROUTINE Care 11/21/18 16:19 Active Oxygen Therapy [RC] PRN Care 11/21/18 16:18 Active Peripheral IV Care [RC] . DIRECTED Care 11/21/18 16:19 Active RT Aerosol Therapy [RC] ASDIRECTED Care 11/21/18 16:22 Active Up With Assistance [RC] ASDIRECTED Care 11/21/18 16:18 Active VTE/DVT Education [RC] PER UNIT ROUTINE Care 11/21/18 16:18 Active Vital Signs [RC] Q4H Care 11/21/18 16:18 Active Clear Liquid Diet [DIET] Diet 11/21/18 Dinner Active Chest 1V Frontal [CR] Routine Exams 11/21/18 16:18 Taken BASIC METABOLIC PANEL,BMP [CHEM] Routine Lab 11/21/18 16:27 Received CBC WITH AUTO DIFF [HEME] Routine Lab 11/21/18 16:27 Results DIGOXIN [CHEM] Routine Lab 11/21/18 16:27 Received HEPATIC FUNCTION PANEL,HFP [CHEM] Routine Lab 11/21/18 16:27 Received MAGNESIUM [CHEM] Routine Lab 11/21/18 16:27 Received MANUAL DIFFERENTIAL QA/NC [HEME] Routine Lab 11/21/18 16:27 Results PHOSPHORUS [CHEM] Routine Lab 11/21/18 16:27 Received TROPONIN I [CHEM] Routine Lab 11/21/18 16:27 Received UA W/MICROSCOPIC [URIN] Routine Lab 11/21/18 16:12 Ordered ALPRAZolam [Xanax] Med 11/21/18 21:00 Active 1 mg PO BEDTIME Acetaminophen [Tylenol] Med 11/21/18 16:18 Active 650 mg PO Q4H PRN Albuterol [Proventil Neb Soln] Med 11/21/18 21:00 Active 2.5 mg INH TIDRT Amiodarone [Cordarone] Med 11/22/18 09:00 Pending 200 mg PO DAILY Aspirin [Halfprin] Med 11/22/18 09:00 Pending 81 mg PO DAILY Budesonide [Pulmicort] Med 11/21/18 18:00 Active 0.5 mg NEB BIDRT Carvedilol [Coreg] Med 11/22/18 09:00 Pending 6.25 mg PO DAILY Dextromethorphan/guaiFENesin [Robitussin DM] Med 11/21/18 16:56 Ordered 10 ml PO Q6H PRN Digoxin [Lanoxin] Med 11/22/18 09:00 Pending 125 mcg PO DAILY Docusate Sodium [Colace] Med 11/21/18 16:18 Active 100 mg PO BID PRN Heparin Sodium Med 11/21/18 22:00 Active 5,000 units SUBCUT Q8HR Loratadine [Claritin] Med 11/22/18 09:00 Pending 10 mg PO DAILY Morphine Med 11/21/18 16:18 Ordered 1 mg IVPUSH Q2H PRN Ondansetron Med 11/21/18 16:13 Pending 4 mg PO Q6HR PRN Pantoprazole [ProTONIX] Med 11/22/18 09:00 Pending 40 mg PO DAILY Prochlorperazine [Compazine] Med 11/21/18 16:13 Pending 10 mg PO Q6HR PRN Roflumilast [Daliresp] Med 11/22/18 09:00 Pending 500 mcg PO DAILY Sertraline [Zoloft] Med 11/22/18 09:00 Pending 50 mg PO DAILY Sodium Chloride 0.9% [Normal Saline] 1,000 ml Med 11/21/18 16:30 Ordered IV ASDIRECTED Sodium Chloride 0.9% [Saline Flush] Med 11/21/18 16:18 Ordered 10 ml FLUSH ASDIRECTED PRN Zolpidem [Ambien] Med 11/21/18 16:18 Ordered 5 mg PO BEDTIME PRN buPROPion [Wellbutrin SR] Med 11/21/18 21:00 Active 150 mg PO BID oxyCODONE Med 11/21/18 16:18 Ordered 5 mg PO Q4H PRN rOPINIRole [Requip] Med 11/21/18 21:00 Active 0.25 mg PO BEDTIME Antiembolic Hose [OM.PC] Per Unit Routine Oth 11/21/18 16:19 Ordered Peripheral IV Insertion Adult [OM.PC] Routine Oth 11/21/18 16:18 Ordered Resuscitation Status Routine Resus Stat 11/21/18 16:18 Ordered Medication Orders Acetaminophen (Tylenol) 650 mg PO Q4H PRN PRN Reason: Pain (Mild 1-3)/fever Albuterol (Proventil Neb Soln) 2.5 mg INH TIDRT [facility] Alprazolam (Xanax) 1 mg PO BEDTIME [facility] Amiodarone HCl (Cordarone) 200 mg PO DAILY [facility] Aspirin (Halfprin) 81 mg PO DAILY [facility] Budesonide (Pulmicort) 0.5 mg NEB BIDRT [facility] Bupropion HCl (Wellbutrin Sr) 150 mg PO BID [facility] Carvedilol (Coreg) 6.25 mg PO DAILY [facility] Digoxin (Lanoxin) 125 mcg PO DAILY [facility] Docusate Sodium (Colace) 100 mg PO BID PRN PRN Reason: Constipation Guaifenesin/Phenylephrine HCl (Robitussin Dm) 10 ml PO Q6H PRN PRN Reason: sob Heparin Sodium (Porcine) (Heparin Sodium) 5,000 units SUBCUT Q8HR [facility] Sodium Chloride (Normal Saline) 1,000 mls @ 75 mls/hr IV ASDIRECTED [facility] Last Admin: 11/21/18 16:58 Dose: 75 mls/hr Loratadine (Claritin) 10 mg PO DAILY [facility] Morphine Sulfate (Morphine) 1 mg IVPUSH Q2H PRN PRN Reason: Pain (severe 7-10) Non-Formulary Medication (Roflumilast [Daliresp]) 500 mcg PO DAILY [facility] Non-Formulary Medication (Ondansetron) 4 mg PO Q6HR PRN PRN Reason: Nausea/Vomiting Non-Formulary Medication (Prochlorperazine [Compazine]) 10 mg PO Q6HR PRN PRN Reason: Nausea/Vomiting Oxycodone HCl (Oxycodone) 5 mg PO Q4H PRN PRN Reason: Pain (moderate 4-6) Pantoprazole Sodium (Protonix) 40 mg PO DAILY [facility] Ropinirole HCl (Requip) 0.25 mg PO BEDTIME [facility] Sertraline HCl (Zoloft) 50 mg PO DAILY [facility] Sodium Chloride (Saline Flush) 10 ml FLUSH ASDIRECTED PRN PRN Reason: Keep Vein Open Zolpidem Tartrate (Ambien) 5 mg PO BEDTIME PRN PRN Reason: Sleep Assessment/Plan Comment:: 58-year-old gentleman who has metastatic lung cancer presented with nausea, vomiting Nausea, vomiting This might relate to chemotherapy, narcotic use We will hold narcotics as much as possible, stop fentanyl patch Use antiemetics as needed IV fluids, electrolyte replacement Cough Obtain chest x-ray Since the white blood cell count is normal for now I will hold antibiotics Lower extremity neuropathic pain Try to avoid narcotics Lung cancer Will follow up with Dr. Acosta He told us that "he was told that his cancer is incurable in 80% and not curable in 50% of the cases" Encouraged to have an open conversation with Dr. Acosta about chances of improvement, treatment and treatment options History of atrial fibrillation Check digoxin level Decrease digitoxin dose for now Severe hypokalemia We'll replace with IV potassium Recheck in the morning DVT prophylaxis with subcutaneous heparin
--- NOTE | 2018-11-21 17:36 | CR ---
Clinical history: 58-year-old male with cough. Interpretation: Abnormal but similar findings to those observed on 02 July 2016 and more recent 03 October 2018
[2018-11-21] MEDS: Potassium Chloride 20 MEQ in Premix Bag 1 BAG IV SCH ×3 (17:48→21:55)
[2018-11-21] MEDS: Budesonide 0.5 MG/2 ML Neb Susp NEB SCH (17:56)
[2018-11-21] MEDS ORDERED: Non-Formulary Medication 1 Each (Montelukast [Singulair] 10 MG) PO SCH (21:00)
[2018-11-21] MEDS ORDERED: buPROPion 150 MG Tab.SR PO SCH (21:00)
[2018-11-21] MEDS ORDERED: Non-Formulary Medication 1 Each (Budesonide [Pulmicort] 0.25 MG) IH SCH (21:00)
[2018-11-21] MEDS ORDERED: Baclofen 10 MG Tab PO SCH (21:00)
[2018-11-21] MEDS: ALPRAZolam 0.5 MG Tab PO SCH (21:32)
[2018-11-21] MEDS: rOPINIRole 0.25 MG Tab PO SCH (21:33)
[2018-11-21] MEDS: Albuterol 0.083% 2.5 MG/3 ML Neb Soln INH SCH (21:34)
[2018-11-21] MEDS: Heparin Sodium 5,000 Units/ML Vial SUBCUT SCH (21:45)
[2018-11-22] MEDS: Potassium Chloride 20 MEQ in Premix Bag 1 BAG IV SCH ×3 (00:14→04:41)
[2018-11-22] MEDS: Heparin Sodium 5,000 Units/ML Vial SUBCUT SCH ×3 (05:23→21:56)
[2018-11-22 07:10] LABS: ANION GAP 14.7; CHLORIDE,CL 94 mmol/L (101-111); SODIUM,NA 129 mmol/L (135-145)
[2018-11-22] MEDS: Budesonide 0.5 MG/2 ML Neb Susp NEB SCH ×2 (08:47→22:00)
[2018-11-22] MEDS: Albuterol 0.083% 2.5 MG/3 ML Neb Soln INH SCH ×3 (08:47→21:58)
[2018-11-22] MEDS ORDERED: BUPROPION 150 MG PO SCH (09:00)
[2018-11-22] MEDS ORDERED: Digoxin 250 MCG Tab PO SCH (09:00)
[2018-11-22] MEDS ORDERED: Carvedilol 6.25 MG Tab **OWN MED PO SCH (09:00)
[2018-11-22] MEDS ORDERED: AMIODARONE 200 MG PO SCH (09:00)
[2018-11-22] MEDS ORDERED: Sertraline 50 MG Tab **OWN MED PO SCH (09:00)
[2018-11-22] MEDS ORDERED: Non-Formulary Medication 1 Each (Roflumilast [Daliresp] 500 MCG) PO SCH (09:00)
[2018-11-22] MEDS ORDERED: buPROPion 150 MG Tab.SR PO SCH (09:30)
[2018-11-22] MEDS ORDERED: Sertraline 50 MG Tab PO SCH (09:34)
--- NOTE | 2018-11-22 10:00 | PCM.PN ---
- General Info Date of Service: 11/22/18 Admission Dx/Problem (Free Text): Admission Diagnosis/Problem Admission Diagnosis/Problem Nausea and vomiting Subjective Update: nausea is better no more vomiting no associated abd pain no cp. no sob burning pain in upper thighs not changed - Review of Systems General: Reports: Weakness. Denies: Fever Pulmonary: Denies: Shortness of Breath Cardiovascular: Denies: Chest Pain Gastrointestinal: Denies: Abdominal Pain Genitourinary: Denies: Dysuria - Patient Data Vitals - Most Recent: Last Vital Signs Temp 37.3 C 11/22/18 07:50 Pulse 62 11/22/18 07:50 Resp 20 11/22/18 07:50 BP 97/62 11/22/18 07:50 Pulse Ox 95 11/22/18 08:49 Weight - Most Recent: 67.041 kg I&O - Last 24 Hours: Intake & Output 11/21/18 11/22/18 11/22/18 22:59 06:59 14:59 Intake Total 835 306 400 Output Total 700 500 200 Balance 135 -194 200 Lab Results Last 24 Hours: Laboratory Results - last 24 hr 11/21/18 11/21/18 11/21/18 Range/Units 16:27 16:27 16:27 WBC 6.0 (5.0-10.0) 10^3/uL RBC 4.16 L (4.6-6.2) 10^6/uL Hgb 13.1 L (14.0-18.0) g/dL Hct 37.2 L (40.0-54.0) % MCV 89.4 D (80-100) fL MCH 31.5 (27.0-34.0) pg MCHC 35.2 H (33.0-35.0) g/dL Plt Count 173 (150-450) 10^3/uL Neut % (Auto) 69.2 (42.2-75.2) % Lymph % (Auto) 8.1 L (20.5-50.1) % [place] % (Auto) 20.3 H (2-8) % Eos % (Auto) 1.7 (1.0-3.0) % Baso % (Auto) 0.7 (0.0-1.0) % Add Manual Diff Yes Neutrophils % (Manual) 63 (42-75) % Band Neutrophils % 9 % Lymphocytes % (Manual) 13 L (20-50) % Monocytes % (Manual) 11 H (2-8) % Eosinophils % (Manual) 4 H (1-3) % Sodium 131 L (135-145) mmol/L Potassium 2.7 L (3.6-5.0) mmol/L Chloride 91 L (101-111) mmol/L Carbon Dioxide 24.0 (21.0-31.0) mmol/L Anion Gap 18.7 BUN 12 (7-18) mg/dL Creatinine 1.1 (0.6-1.3) mg/dL Est Cr Clr Drug Dosing 68.56 mL/min Estimated GFR (MDRD) > 60 Glucose 99 (74-105) mg/dL Calcium 8.9 (8.4-10.2) mg/dl Phosphorus 3.4 (2.5-4.6) mg/dL Magnesium 2.0 (1.8-2.5) mg/dL Total Bilirubin 1.2 H (0.2-1.0) mg/dL Direct Bilirubin 0.3 H (0.0-0.2) mg/dL Indirect Bilirubin 0.9 AST 44 H (10-42) IU/L ALT 34 (10-60) IU/L Alkaline Phosphatase 106 (42-121) IU/L Troponin I 0.04 H* (0.00-0.02) ng/ml Total Protein 7.2 (6.7-8.2) g/dl Albumin 3.7 (3.2-5.5) g/dl Globulin 3.5 Albumin/Globulin Ratio 1.06 Urine Color (YELLOW) Urine Appearance (CLEAR) Urine pH (5.0-9.0) Ur Specific [place] (1.005-1.030) Urine Protein (NEGATIVE) Urine Glucose (UA) (NEGATIVE) Urine Ketones (NEGATIVE) Urine Occult Blood (NEGATIVE) Urine Nitrite (NEGATIVE) Urine Bilirubin (NEGATIVE) Urine Urobilinogen (0.2-1.0) mg/dL Ur Leukocyte Esterase (NEGATIVE) Urine RBC /HPF Urine WBC (0-5/HPF) /HPF Ur Epithelial Cells /HPF Amorphous Sediment (0/HPF) /HPF Urine Bacteria (0-FEW/HPF) /HPF Hyaline Casts /LPF Fine Granular Casts (0/LPF) /LPF Urine Mucus /LPF Digoxin 2.8 H* (0-2.5) ng/ml 11/21/18 11/22/18 11/22/18 Range/Units 22:50 06:40 06:40 WBC 5.9 (5.0-10.0) 10^3/uL RBC 3.83 L (4.6-6.2) 10^6/uL Hgb 12.0 L (14.0-18.0) g/dL Hct 34.6 L (40.0-54.0) % MCV 90.3 (80-100) fL MCH 31.3 (27.0-34.0) pg MCHC 34.7 (33.0-35.0) g/dL Plt Count 162 (150-450) 10^3/uL Neut % (Auto) 63.9 (42.2-75.2) % Lymph % (Auto) 10.6 L (20.5-50.1) % [place] % (Auto) 23.3 H (2-8) % Eos % (Auto) 1.4 (1.0-3.0) % Baso % (Auto) 0.8 (0.0-1.0) % Add Manual Diff Neutrophils % (Manual) (42-75) % Band Neutrophils % % Lymphocytes % (Manual) (20-50) % Monocytes % (Manual) (2-8) % Eosinophils % (Manual) (1-3) % Sodium 129 L (135-145) mmol/L Potassium 3.7 (3.6-5.0) mmol/L Chloride 94 L (101-111) mmol/L Carbon Dioxide 24.0 (21.0-31.0) mmol/L Anion Gap 14.7 BUN 11 (7-18) mg/dL Creatinine 0.9 (0.6-1.3) mg/dL Est Cr Clr Drug Dosing 83.80 mL/min Estimated GFR (MDRD) > 60 Glucose 77 (74-105) mg/dL Calcium 9.0 (8.4-10.2) mg/dl Phosphorus (2.5-4.6) mg/dL Magnesium (1.8-2.5) mg/dL Total Bilirubin (0.2-1.0) mg/dL Direct Bilirubin (0.0-0.2) mg/dL Indirect Bilirubin AST (10-42) IU/L ALT (10-60) IU/L Alkaline Phosphatase (42-121) IU/L Troponin I (0.00-0.02) ng/ml Total Protein (6.7-8.2) g/dl Albumin (3.2-5.5) g/dl Globulin Albumin/Globulin Ratio Urine Color Dark yellow (YELLOW) Urine Appearance Slightly cloudy (CLEAR) Urine pH 7.0 (5.0-9.0) Ur Specific [place] 1.015 (1.005-1.030) Urine Protein Negative (NEGATIVE) Urine Glucose (UA) Negative (NEGATIVE) Urine Ketones Negative (NEGATIVE) Urine Occult Blood Negative (NEGATIVE) Urine Nitrite Negative (NEGATIVE) Urine Bilirubin Negative (NEGATIVE) Urine Urobilinogen 1.0 (0.2-1.0) mg/dL Ur Leukocyte Esterase Negative (NEGATIVE) Urine RBC 0-5 /HPF Urine WBC 0-5 (0-5/HPF) /HPF Ur Epithelial Cells Rare /HPF Amorphous Sediment Moderate (0/HPF) /HPF Urine Bacteria Few (0-FEW/HPF) /HPF Hyaline Casts Few H /LPF Fine Granular Casts Moderate H (0/LPF) /LPF Urine Mucus Few H /LPF Digoxin (0-2.5) ng/ml Med Orders - Current: Current Medications Acetaminophen (Tylenol) 650 mg PO Q4H PRN PRN Reason: Pain (Mild 1-3)/fever Albuterol (Proventil Neb Soln) 2.5 mg INH TIDRT [facility] Last Admin: 11/22/18 08:47 Dose: 2.5 mg Alprazolam (Xanax) 1 mg PO BEDTIME [facility] Last Admin: 11/21/18 21:32 Dose: 1 mg Amiodarone HCl (Cordarone) 200 mg PO DAILY [facility] Aspirin (Halfprin) 81 mg PO DAILY [facility] Budesonide (Pulmicort) 0.5 mg NEB BIDRT [facility] Last Admin: 11/22/18 08:47 Dose: 0.5 mg Bupropion HCl (Wellbutrin Sr) 150 mg PO BID [facility] Carvedilol (Coreg) 6.25 mg PO DAILY [facility] Docusate Sodium (Colace) 100 mg PO BID PRN PRN Reason: Constipation Guaifenesin/Phenylephrine HCl (Robitussin Dm) 10 ml PO Q6H PRN PRN Reason: sob Heparin Sodium (Porcine) (Heparin Sodium) 5,000 units SUBCUT Q8HR [facility] Last Admin: 11/22/18 05:23 Dose: 5,000 units Loratadine (Claritin) 10 mg PO DAILY [facility] Morphine Sulfate (Morphine) 1 mg IVPUSH Q2H PRN PRN Reason: Pain (severe 7-10) Ondansetron 8 Mg * (Patient Own*) 0 mg PO Q6HR PRN PRN Reason: Nausea/Vomiting Prochlorperazine [ Compazine] 10 Mg * Patient Own* 10 mg PO Q6HR PRN PRN Reason: Nausea/Vomiting Oxycodone HCl (Oxycodone) 5 mg PO Q4H PRN PRN Reason: Pain (moderate 4-6) Pantoprazole Sodium (Protonix) 40 mg PO DAILY [facility] Ropinirole HCl (Requip) 0.25 mg PO BEDTIME [facility] Last Admin: 11/21/18 21:33 Dose: 0.25 mg Sertraline HCl (Zoloft) 50 mg PO DAILY [facility] Sodium Chloride (Saline Flush) 10 ml FLUSH ASDIRECTED PRN PRN Reason: Keep Vein Open Zolpidem Tartrate (Ambien) 5 mg PO BEDTIME PRN PRN Reason: Sleep Discontinued Medications Baclofen (Lioresal) 10 mg PO TID [facility] Bupropion HCl (Wellbutrin Sr) 150 mg PO BID [facility] Last Admin: 11/21/18 21:33 Dose: 150 mg Digoxin (Lanoxin) 125 mcg PO DAILY [facility] Sodium Chloride (Normal Saline) 1,000 mls @ 75 mls/hr IV ASDIRECTED [facility] Last Admin: 11/21/18 16:58 Dose: 75 mls/hr Potassium Chloride 20 meq/ (Premix) 100 mls @ 50 mls/hr IV Q2H [facility] Stop: 11/22/18 05:14 Last Admin: 11/22/18 04:41 Dose: 50 mls/hr Sodium Chloride (Normal Saline) 1,000 mls @ 75 mls/hr IV ASDIRECTED [facility] Non-Formulary Medication (Budesonide [Pulmicort]) 0.25 mg IH BID [facility] Non-Formulary Medication (Montelukast [Singulair]) 10 mg PO BEDTIME [facility] Non-Formulary Medication (Roflumilast [Daliresp]) 500 mcg PO DAILY [facility] Amiodarone 200 Mg (Tab Own Med) 1 each PO DAILY [facility] Carvedilol 6.25 Mg (Tab Own Med) 1 each PO DAILY [facility] Sertraline 50 Mg Tab (Own Med) 1 each PO DAILY [facility] Bupropion 150 Mg Tab (.Sr Own Med) 1 each PO BID [facility] - Exam General: Alert, Oriented Neck: Supple Lungs: Clear to Auscultation, Normal Respiratory Effort Cardiovascular: Regular Rate, Regular Rhythm GI/Abdominal Exam: Normal Bowel Sounds, Soft, Non-Tender Extremities: No Pedal Edema - Problem List & Annotations (1) Metastatic primary lung cancer SNOMED Code(s): 20765456, 566795265 Code(s): C34.90 - MALIGNANT NEOPLASM OF UNSP PART OF UNSP BRONCHUS OR LUNG Status: Acute Current Visit: No Qualifiers: Laterality: left Qualified Code(s): C34.92 - Malignant neoplasm of unspecified part of left bronchus or lung (2) Nausea SNOMED Code(s): 892025973 Code(s): R11.0 - NAUSEA Status: Acute Current Visit: No (3) Neuralgia SNOMED Code(s): 82846895 Code(s): M79.2 - NEURALGIA AND NEURITIS, UNSPECIFIED Status: Acute Current Visit: No (4) Neuropathic pain, leg, bilateral SNOMED Code(s): 212727700 Code(s): G57.91 - UNSPECIFIED MONONEUROPATHY OF RIGHT LOWER LIMB; G57.92 - UNSPECIFIED MONONEUROPATHY OF LEFT LOWER LIMB Status: Acute Current Visit: No (5) Vomiting SNOMED Code(s): 312756985 Code(s): R11.10 - VOMITING, UNSPECIFIED Status: Acute Current Visit: No Qualifiers: Vomiting type: unspecified Vomiting Intractability: non-intractable Nausea presence: with nausea Qualified Code(s): R11.2 - Nausea with vomiting, unspecified - Problem List Review Problem List Initiated/Reviewed/Updated: Yes - My Orders Last 24 Hours: My Active Orders 11/21/18 16:13 Ondansetron 0 mg PO Q6HR PRN Prochlorperazine [Compazine] 10 mg PO Q6HR PRN 11/21/18 16:18 Patient Status [ADT] Routine Oxygen Therapy [RC] PRN Up With Assistance [RC] ASDIRECTED VTE/DVT Education [RC] PER UNIT ROUTINE Vital Signs [RC] Q4H Acetaminophen [Tylenol] 650 mg PO Q4H PRN Docusate Sodium [Colace] 100 mg PO BID PRN Morphine 1 mg IVPUSH Q2H PRN Sodium Chloride 0.9% [Saline Flush] 10 ml FLUSH ASDIRECTED PRN Zolpidem [Ambien] 5 mg PO BEDTIME PRN oxyCODONE 5 mg PO Q4H PRN Peripheral IV Insertion Adult [OM.PC] Routine Resuscitation Status Routine 11/21/18 16:19 Antiembolic Devices [RC] PER UNIT ROUTINE Peripheral IV Care [RC] . DIRECTED Antiembolic Hose [OM.PC] Per Unit Routine 11/21/18 16:22 RT Aerosol Therapy [RC] ASDIRECTED 11/21/18 16:56 Dextromethorphan/guaiFENesin [Robitussin DM] 10 ml PO Q6H PRN 11/21/18 17:13 Telemetry Monitoring [Cardiac Monitoring] [RC] 11/21/18 18:00 Budesonide [Pulmicort] 0.5 mg NEB BIDRT 11/21/18 21:00 ALPRAZolam [Xanax] 1 mg PO BEDTIME Albuterol [Proventil Neb Soln] 2.5 mg INH TIDRT rOPINIRole [Requip] 0.25 mg PO BEDTIME 11/21/18 22:00 Heparin Sodium 5,000 units SUBCUT Q8HR 11/22/18 09:00 Aspirin [Halfprin] 81 mg PO DAILY Loratadine [Claritin] 10 mg PO DAILY Pantoprazole [ProTONIX] 40 mg PO DAILY 11/22/18 09:02 Amiodarone [Cordarone] 200 mg PO DAILY 11/22/18 09:30 buPROPion [Wellbutrin SR] 150 mg PO BID 11/22/18 09:34 Sertraline [Zoloft] 50 mg PO DAILY 11/22/18 09:35 Carvedilol [Coreg] 6.25 mg PO DAILY 11/22/18 09:55 [employer] Discontinue [Cardiac Monitoring Discontinue] [RC] Click to Edit 11/22/18 Lunch General [Regular Diet] [DIET] 11/23/18 05:15 BASIC METABOLIC PANEL,BMP [CHEM] AM CBC WITH AUTO DIFF [HEME] AM - Plan Plan:: 58-year-old gentleman who has metastatic lung cancer presented with nausea, vomiting Nausea, vomiting This might relate to chemotherapy, narcotic use We will hold narcotics as much as possible, stop fentanyl patch Use antiemetics as needed improved advance diet stop IV fluids, continue electrolyte replacement as needed Cough chest x-ray - abnormal - difficult to interpret how much is pneumonia, how much is cancer Since the white blood cell count is normal for now I will hold antibiotics Lower extremity neuropathic pain Try to avoid narcotics Lung cancer Will follow up with Dr. Acosta He told us that "he was told that his cancer is incurable in 80% and not curable in 50% of the cases" Encouraged to have an open conversation with Dr. Acosta about chances of improvement, treatment and treatment options History of atrial fibrillation had high digoxin level - stop now Severe hypokalemia replaced Recheck in the morning DVT prophylaxis with subcutaneous heparin
[2018-11-22] MEDS: Loratadine 10 MG Tab PO SCH (10:19)
[2018-11-22] MEDS: Aspirin 81 MG Tab.EC PO SCH (10:19)
[2018-11-22] MEDS: Pantoprazole 40 MG Tab.CR PO SCH (10:20)
[2018-11-22] MEDS: Amiodarone 200 MG Tab PO SCH (10:22)
[2018-11-22] MEDS: Carvedilol 6.25 MG Tab PO SCH (10:24)
[2018-11-22] MEDS: Sertraline 50 MG Tab PO SCH (10:25)
[2018-11-22] MEDS: buPROPion 150 MG Tab.SR PO SCH ×2 (10:25→21:56)
[2018-11-22] MEDS: ALPRAZolam 0.5 MG Tab PO SCH (21:56)
[2018-11-22] MEDS: rOPINIRole 0.25 MG Tab PO SCH (21:56)
[2018-11-23] MEDS: Heparin Sodium 5,000 Units/ML Vial SUBCUT SCH (05:56)
[2018-11-23 07:06] LABS: ANION GAP 15.2; CHLORIDE,CL 96 mmol/L (101-111); SODIUM,NA 131 mmol/L (135-145)
[2018-11-23] MEDS: Budesonide 0.5 MG/2 ML Neb Susp NEB SCH (07:54)
[2018-11-23] MEDS: Albuterol 0.083% 2.5 MG/3 ML Neb Soln INH SCH (07:54)
[2018-11-23] MEDS: Loratadine 10 MG Tab PO SCH (09:25)
[2018-11-23] MEDS: Aspirin 81 MG Tab.EC PO SCH (09:26)
[2018-11-23] MEDS: Sertraline 50 MG Tab PO SCH (09:26)
[2018-11-23] MEDS: buPROPion 150 MG Tab.SR PO SCH (09:26)
[2018-11-23] MEDS: Amiodarone 200 MG Tab PO SCH (09:26)
[2018-11-23] MEDS: Pantoprazole 40 MG Tab.CR PO SCH (09:26)
[2018-11-23] MEDS: Carvedilol 6.25 MG Tab PO SCH (09:31)
[2018-11-23 09:32] VITALS: BP 90/58
[2018-11-23] MEDS ORDERED: Benzocaine/Cetylpyridinium/Menthol Lozenge MUCMEM PRN (10:31)
--- NOTE | 2018-11-23 11:17 | PCM.DCSUM1 ---
Discharge Summary - Hospital Course Free Text/Narrative:: 58-year-old gentleman who has metastatic lung cancer presented with nausea, vomiting Nausea, vomiting This might relate to chemotherapy, narcotic use We will hold narcotics as much as possible, stopped fentanyl patch Use antiemetics as needed improved tolerating diet Cough chest x-ray - abnormal - difficult to interpret how much is pneumonia, how much is cancer Since the white blood cell count is normal for now I will hold antibiotics Lower extremity neuropathic pain Try to avoid narcotics Lung cancer Will follow up with Dr. Acosta He told us that "he was told that his cancer is incurable in 80% and not curable in 50% of the cases" Encouraged to have an open conversation with Dr. Acosta about chances of improvement, treatment and treatment options History of atrial fibrillation had high digoxin level - stop now cont amio and coreg for rate control Severe hypokalemia replaced decrease lasix, cont K supplement Diagnosis: Stroke: No - Discharge Data Discharge Date: 11/23/18 Discharge Disposition: Home, Self-Care 01 Condition: Good - Discharge Diagnosis/Problem(s) (1) Metastatic primary lung cancer SNOMED Code(s): 18126893, 935882363 ICD Code: C34.90 - MALIGNANT NEOPLASM OF UNSP PART OF UNSP BRONCHUS OR LUNG Status: Acute Current Visit: No Qualifiers: Laterality: left Qualified Code(s): C34.92 - Malignant neoplasm of unspecified part of left bronchus or lung (2) Nausea SNOMED Code(s): 687335719 ICD Code: R11.0 - NAUSEA Status: Acute Current Visit: No (3) Neuralgia SNOMED Code(s): 17855893 ICD Code: M79.2 - NEURALGIA AND NEURITIS, UNSPECIFIED Status: Acute Current Visit: No (4) Neuropathic pain, leg, bilateral SNOMED Code(s): 636253915 ICD Code: G57.91 - UNSPECIFIED MONONEUROPATHY OF RIGHT LOWER LIMB; G57.92 - UNSPECIFIED MONONEUROPATHY OF LEFT LOWER LIMB Status: Acute Current Visit: No (5) Vomiting SNOMED Code(s): 298231652 ICD Code: R11.10 - VOMITING, UNSPECIFIED Status: Acute Current Visit: No Qualifiers: Vomiting type: unspecified Vomiting Intractability: non-intractable Nausea presence: with nausea Qualified Code(s): R11.2 - Nausea with vomiting, unspecified - Discharge Plan *PRESCRIPTION DRUG MONITORING PROGRAM REVIEWED*: Not Applicable *COPY OF PRESCRIPTION DRUG MONITORING REPORT IN PATIENT RAJENDRA: Not Applicable Prescriptions/Med Rec: oxyCODONE 5 mg PO Q4H PRN #12 tablet PRN Reason: Pain (Moderate 4-6) Home Medications: Home Meds Aspirin [Halfprin] 81 mg PO DAILY 01/30/14 [History] Montelukast [Singulair] 10 mg PO BEDTIME 01/30/14 [History] [place]-3 Fatty Acids [Fish Oil] 1,000 mg PO DAILY 01/30/14 [History] ALPRAZolam [Xanax] 1 mg PO BEDTIME 09/29/14 [History] Roflumilast [Daliresp] 500 mcg PO DAILY 12/23/14 [History] Mometasone Furoate [Nasonex] 2 sprays NASBOTH BID PRN 11/28/15 [History] Nitroglycerin [Nitrostat] 0.4 mg SL ASDIRECTED 11/28/15 [History] atorvaSTATin [Lipitor] 40 mg PO BEDTIME 11/28/15 [History] Amiodarone [Cordarone] 200 mg PO DAILY 07/02/16 [History] Albuterol [Ventolin HFA] 2 puff INH Q6H PRN 08/29/18 [History] Baclofen 10 mg PO TID 08/29/18 [History] Loratadine [Claritin] 10 mg PO DAILY 08/29/18 [History] Pantoprazole Sodium [Protonix] 40 mg PO DAILY 08/29/18 [History] Sertraline [Zoloft] 50 mg PO DAILY 08/29/18 [History] buPROPion [Wellbutrin SR] 150 mg PO BID 08/29/18 [History] Albuterol [Proventil Neb Soln] 2.5 mg INH TID 10/03/18 [History] Budesonide [Pulmicort] 0.25 mg IH BID 10/03/18 [History] Carvedilol 6.25 mg PO DAILY 10/03/18 [History] Ondansetron [Zofran Odt] 8 mg PO ASDIRECTED PRN 11/21/18 [History] Potassium Chloride 20 meq PO DAILY 11/21/18 [History] Prochlorperazine [Compazine] 10 mg PO ASDIRECTED PRN 11/21/18 [History] rOPINIRole [Requip] 0.25 mg PO BEDTIME 11/21/18 [History] Furosemide [Lasix] 40 mg PO DAILY #30 11/23/18 [Rx] oxyCODONE 5 mg PO Q4H PRN #12 tablet 11/23/18 [Rx] Patient Handouts: Nausea and Vomiting, Adult, [id number] - Discharge Summary/Plan Comment DC Time >30 min.: No - General Info Date of Service: 11/23/18 Subjective Update: nausea is gone no more vomiting no associated abd pain no cp. no sob burning pain in upper thighs not changed eating ok - Review of Systems General: Reports: Weakness. Denies: Fever Pulmonary: Denies: Shortness of Breath Cardiovascular: Denies: Chest Pain Gastrointestinal: Denies: Abdominal Pain Neurological: Denies: Confusion - Patient Data Vitals - Most Recent: Last Vital Signs Temp 37.5 C 11/23/18 07:58 Pulse 66 11/23/18 09:31 Resp 16 11/23/18 07:58 BP 90/58 L 11/23/18 09:31 Pulse Ox 93 L 11/23/18 07:58 Weight - Most Recent: 67.041 kg I&O - Last 24 hours: Intake & Output 11/22/18 11/23/18 11/23/18 22:59 06:59 14:59 Intake Total 720 200 Output Total 350 300 Balance 370 200 -300 Lab Results - Last 24 hrs: Laboratory Results - last 24 hr 11/23/18 11/23/18 Range/Units 06:30 06:30 WBC 5.5 (5.0-10.0) 10^3/uL RBC 3.69 L (4.6-6.2) 10^6/uL Hgb 11.5 L (14.0-18.0) g/dL Hct 33.4 L (40.0-54.0) % MCV 90.5 (80-100) fL MCH 31.2 (27.0-34.0) pg MCHC 34.4 (33.0-35.0) g/dL Plt Count 147 L (150-450) 10^3/uL Neut % (Auto) 58.4 (42.2-75.2) % Lymph % (Auto) 12.7 L (20.5-50.1) % [place] % (Auto) 26.4 H (2-8) % Eos % (Auto) 2.0 (1.0-3.0) % Baso % (Auto) 0.5 (0.0-1.0) % Add Manual Diff Sodium 131 L (135-145) mmol/L Potassium 3.2 L (3.6-5.0) mmol/L Chloride 96 L (101-111) mmol/L Carbon Dioxide 23.0 (21.0-31.0) mmol/L Anion Gap 15.2 BUN 9 (7-18) mg/dL Creatinine 0.9 (0.6-1.3) mg/dL Est Cr Clr Drug Dosing 83.80 mL/min Estimated GFR (MDRD) > 60 Glucose 90 (74-105) mg/dL Calcium 8.8 (8.4-10.2) mg/dl Med Orders - Current: Current Medications Acetaminophen (Tylenol) 650 mg PO Q4H PRN PRN Reason: Pain (Mild 1-3)/fever Albuterol (Proventil Neb Soln) 2.5 mg INH TIDRT [facility] Last Admin: 11/23/18 07:54 Dose: 2.5 mg Alprazolam (Xanax) 1 mg PO BEDTIME [facility] Last Admin: 11/22/18 21:56 Dose: 1 mg Amiodarone HCl (Cordarone) 200 mg PO DAILY [facility] Last Admin: 11/23/18 09:26 Dose: 200 mg Aspirin (Halfprin) 81 mg PO DAILY [facility] Last Admin: 11/23/18 09:26 Dose: 81 mg Benzocaine/Menthol (Cepacol Sore Throat) 1 lozenge MUCMEM Q4HR PRN PRN Reason: Sore Throat Last Admin: 11/23/18 11:00 Dose: 1 lozenge Budesonide (Pulmicort) 0.5 mg NEB BID@0700,2100 [facility] Last Admin: 11/23/18 07:54 Dose: 0.5 mg Bupropion HCl (Wellbutrin Sr) 150 mg PO BID [facility] Last Admin: 11/23/18 09:26 Dose: 150 mg Carvedilol (Coreg) 6.25 mg PO DAILY [facility] Last Admin: 11/23/18 09:31 Dose: 6.25 mg Docusate Sodium (Colace) 100 mg PO BID PRN PRN Reason: Constipation Guaifenesin/Phenylephrine HCl (Robitussin Dm) 10 ml PO Q6H PRN PRN Reason: sob Heparin Sodium (Porcine) (Heparin Sodium) 5,000 units SUBCUT Q8HR [facility] Last Admin: 11/23/18 05:56 Dose: 5,000 units Loratadine (Claritin) 10 mg PO DAILY [facility] Last Admin: 11/23/18 09:25 Dose: 10 mg Morphine Sulfate (Morphine) 1 mg IVPUSH Q2H PRN PRN Reason: Pain (severe 7-10) Ondansetron 8 Mg * (Patient Own*) 0 mg PO Q6HR PRN PRN Reason: Nausea/Vomiting Prochlorperazine [ Compazine] 10 Mg * Patient Own* 10 mg PO Q6HR PRN PRN Reason: Nausea/Vomiting Oxycodone HCl (Oxycodone) 5 mg PO Q4H PRN PRN Reason: Pain (moderate 4-6) Pantoprazole Sodium (Protonix) 40 mg PO DAILY [facility] Last Admin: 11/23/18 09:26 Dose: 40 mg Potassium Chloride (Klor-Con 10) 40 meq PO ONETIME ONE Stop: 11/23/18 11:10 Ropinirole HCl (Requip) 0.25 mg PO BEDTIME [facility] Last Admin: 11/22/18 21:56 Dose: 0.25 mg Sertraline HCl (Zoloft) 50 mg PO DAILY [facility] Last Admin: 11/23/18 09:26 Dose: 50 mg Sodium Chloride (Saline Flush) 10 ml FLUSH ASDIRECTED PRN PRN Reason: Keep Vein Open Last Admin: 11/23/18 09:25 Dose: 10 ml Zolpidem Tartrate (Ambien) 5 mg PO BEDTIME PRN PRN Reason: Sleep Discontinued Medications Baclofen (Lioresal) 10 mg PO TID [facility] Budesonide (Pulmicort) 0.5 mg NEB BIDRT [facility] Last Admin: 11/22/18 08:47 Dose: 0.5 mg Bupropion HCl (Wellbutrin Sr) 150 mg PO BID [facility] Last Admin: 11/21/18 21:33 Dose: 150 mg Bupropion HCl (Wellbutrin Sr) 150 mg PO BID [facility] Digoxin (Lanoxin) 125 mcg PO DAILY [facility] Sodium Chloride (Normal Saline) 1,000 mls @ 75 mls/hr IV ASDIRECTED [facility] Last Admin: 11/21/18 16:58 Dose: 75 mls/hr Potassium Chloride 20 meq/ (Premix) 100 mls @ 50 mls/hr IV Q2H [facility] Stop: 11/22/18 05:14 Last Admin: 11/22/18 04:41 Dose: 50 mls/hr Sodium Chloride (Normal Saline) 1,000 mls @ 75 mls/hr IV ASDIRECTED [facility] Non-Formulary Medication (Budesonide [Pulmicort]) 0.25 mg IH BID [facility] Non-Formulary Medication (Montelukast [Singulair]) 10 mg PO BEDTIME [facility] Non-Formulary Medication (Roflumilast [Daliresp]) 500 mcg PO DAILY [facility] Last Admin: 11/22/18 10:37 Dose: Not Given Amiodarone 200 Mg (Tab Own Med) 1 each PO DAILY [facility] Last Admin: 11/22/18 10:36 Dose: Not Given Carvedilol 6.25 Mg (Tab Own Med) 1 each PO DAILY [facility] Last Admin: 11/22/18 10:37 Dose: Not Given Sertraline 50 Mg Tab (Own Med) 1 each PO DAILY [facility] Last Admin: 11/22/18 10:37 Dose: Not Given Bupropion 150 Mg Tab (.Sr Own Med) 1 each PO BID [facility] Last Admin: 11/22/18 10:36 Dose: Not Given Sertraline HCl (Zoloft) 50 mg PO DAILY [facility] - Exam General: Reports: Alert, Oriented Neck: Reports: Supple Lungs: Reports: Clear to Auscultation, Normal Respiratory Effort Cardiovascular: Reports: Regular Rate, Regular Rhythm GI/Abdominal Exam: Normal Bowel Sounds, Soft, Non-Tender Extremities: No Pedal Edema
[2018-11-23] MEDS ORDERED: Potassium Chloride 10 MEQ Tab.ER PO ONE (11:30)
== END 2018-11-23 12:45 | disposition home or self-care (01) ==
LOC: DL.MS 14:26 → UNDOADMOB 14:26 → DL.MS 16:18
PROVIDERS: ADMIT Internal Medicine; ATTEND Internal Medicine
DX: R11.2 Nausea with vomiting, unspecified (principal); E87.6 Hypokalemia; C34.92 Malignant neoplasm of unspecified part of left bronchus or lung; C78.7 Secondary malignant neoplasm of liver and intrahepatic bile duct; C79.00 Secondary malignant neoplasm of unspecified kidney and renal pelvis; R05 Cough; J44.9 Chronic obstructive pulmonary disease, unspecified; I48.91 Unspecified atrial fibrillation; G57.91 Unspecified mononeuropathy of right lower limb; F41.9 Anxiety disorder, unspecified; F32.9 Major depressive disorder, single episode, unspecified; Z79.899 Other long term (current) drug therapy
CPT/HCPCS: 36415; 51798; 71045; 80048; 80076; 80162; 81001; 83735; 84100; 84484; 85025; 94640; 96360; 96361; 96372; A9270-GY; G0378; J1642; J1644; J3480; J7030; J7613-GY

== ENCOUNTER 2018-12-26 01:09 | Emergency (ER) | payer MEDICARE, MEDICAID ==
--- NOTE | 2018-12-26 01:55 | EDM.PDOC ---
ED HPI GENERAL MEDICAL PROBLEM - General Chief Complaint: Abdominal Pain Stated Complaint: STOMACH AND LEG PAIN [id number] Time Seen by Provider: 12/26/18 01:52 Source of Information: Reports: Patient History Limitations: Reports: No Limitations - History of Present Illness INITIAL COMMENTS - FREE TEXT/NARRATIVE: 1 week h/o abd pain no appetite vomits everything but able hold down liquids only. has Rx for nausea but not working. left thigh numb past 4 months told MD but nobody does anything. resuming chemo next week. Abdominal Pain Score (Numeric/FACES): 10 - Related Data Allergies Allergy/AdvReac Type Severity Reaction Status Date / Time doxycycline Allergy Headache Verified 12/26/18 01:51 Penicillins Allergy Hives Verified 12/26/18 01:51 Home Meds: Home Meds Aspirin [Halfprin] 81 mg PO DAILY 01/30/14 [History] Montelukast [Singulair] 10 mg PO BEDTIME 01/30/14 [History] [place]-3 Fatty Acids [Fish Oil] 1,000 mg PO DAILY 01/30/14 [History] ALPRAZolam [Xanax] 1 mg PO BEDTIME 09/29/14 [History] Roflumilast [Daliresp] 500 mcg PO DAILY 12/23/14 [History] Mometasone Furoate [Nasonex] 2 sprays NASBOTH BID PRN 11/28/15 [History] atorvaSTATin [Lipitor] 40 mg PO BEDTIME 11/28/15 [History] Amiodarone [Cordarone] 200 mg PO DAILY 07/02/16 [History] Albuterol [Ventolin HFA] 2 puff INH Q6H PRN 08/29/18 [History] Baclofen 10 mg PO TID 08/29/18 [History] Loratadine [Claritin] 10 mg PO DAILY 08/29/18 [History] Pantoprazole Sodium [Protonix] 40 mg PO DAILY 08/29/18 [History] Sertraline [Zoloft] 50 mg PO DAILY 08/29/18 [History] buPROPion [Wellbutrin SR] 150 mg PO BID 08/29/18 [History] Albuterol [Proventil Neb Soln] 2.5 mg INH TID 10/03/18 [History] Budesonide [Pulmicort] 0.25 mg IH BID 10/03/18 [History] Carvedilol 6.25 mg PO DAILY 10/03/18 [History] Ondansetron [Zofran Odt] 8 mg PO ASDIRECTED PRN 11/21/18 [History] rOPINIRole [Requip] 0.25 mg PO BEDTIME 11/21/18 [History] Potassium Chloride 20 meq PO DAILY 3 Days #3 tab 11/23/18 [Rx] Past Medical History - Past Health History Medical/Surgical History: Denies Medical/Surgical History HEENT History: Reports: Other (See Below) Other HEENT History: fluid in right ear, also c/o ringing in the ear drum Cardiovascular History: Reports: Automatic Implantable Cardioverter Defibrillators, CAD, High Cholesterol, Hypertension, [place], Pacemaker, PTCA, Stents Respiratory History: Reports: COPD Other Respiratory History: lung cancer with mets to liver and kidney mets Gastrointestinal History: Reports: None Genitourinary History: Reports: Other (See Below) Other Genitourinary History: kidney CA Musculoskeletal History: Reports: Arthritis Other Musculoskeletal History: shoulder Neurological History: Reports: Migraines Psychiatric History: Reports: Anxiety, Depression Endocrine/Metabolic History: Reports: None Other Endocrine/Metabolic History: states was told blood sugars are ? prediabetic Hematologic History: Reports: None Immunologic History: Reports: None Oncologic (Cancer) History: Reports: Liver, Lung Other Oncologic History: Primary Lung CA with Mets to liver and kidney, Pt has port for chemo. Last chemo 11/16/18 Dermatologic History: Reports: None - Infectious Disease History Infectious Disease History: Reports: Shingles - Past Surgical History HEENT Surgical History: Reports: None Cardiovascular Surgical History: Reports: Coronary Artery Bypass Respiratory Surgical History: Reports: Lung Biopsies GI Surgical History: Reports: None Male Surgical History: Reports: None Endocrine Surgical History: Reports: None Musculoskeletal Surgical History: Reports: None Other Musculoskeletal Surgeries/Procedures:: states legs feel weak and unable to stand for long periods of time. Social & Family History - Family History Family Medical History: Noncontributory - Caffeine Use Caffeine Use: Reports: Coffee ED ROS GENERAL - Review of Systems Review Of Systems: ROS reveals no pertinent complaints other than HPI. ED EXAM, GI/ABD - Physical Exam Exam: See Below Exam Limited By: No Limitations General Appearance: Alert, WD/WN, Mild Distress, Other (discomfort) Ears: Hearing Grossly Normal Throat/Mouth: Normal Voice, No Airway Compromise Head: Atraumatic Neck: Non-Tender, Full Range of Motion Respiratory/Chest: No Respiratory Distress Cardiovascular: Regular Rate, Rhythm GI/Abdominal Exam: Tender, Other (generalized). No: Distended, Guarding, Rigid , Rebound Neurological: Alert, Oriented, Normal Cognition, Normal Gait, No Motor/Sensory Deficits Psychiatric: Flat Affect Skin Exam: Warm, Dry, Normal Color Lymphatic: No Adenopathy Course - Vital Signs Last Recorded V/S: Last Vital Signs Temp 37.1 C 12/26/18 02:32 Pulse 77 12/26/18 02:32 Resp 14 12/26/18 02:32 BP 87/58 L 12/26/18 02:32 Pulse Ox 93 L 12/26/18 02:32 - Orders/Labs/Meds Orders: Active Orders 24 hr Category Date Time Status Abdomen Pelvis wo Cont [CT] Urgent Exams 12/26/18 03:23 Ordered Chest 1V Frontal [CR] Urgent Exams 12/26/18 03:23 Ordered CULTURE BLOOD [BC] Stat Lab 12/26/18 02:10 Received CULTURE STREP A CONFIRMATION [RM] Stat Lab 12/26/18 01:49 Results STREP SCRN A RAPID W CULT CONF [RM] Stat Lab 12/26/18 01:49 Results UA RFX AIMEE AND CULT IF INDIC [URIN] Stat Lab 12/26/18 03:23 Ordered Potassium Chloride [KCl 10 MEQ in Water 100 ML] 10 meq Med 12/26/18 04:25 Ordered Premix Bag 1 bag IV ONETIME Sodium Chloride 0.9% [Normal Saline] 1,000 ml Med 12/26/18 02:00 Active IV ASDIRECTED Sodium Chloride 0.9% [Normal Saline] 1,000 ml Med 12/26/18 04:30 Ordered IV ASDIRECTED Medication Orders Sodium Chloride (Normal Saline) 1,000 mls @ 500 mls/hr IV ASDIRECTED CHRISTI Last Admin: 12/26/18 02:01 Dose: 500 mls/hr Potassium Chloride 10 meq/ (Premix) 100 mls @ 100 mls/hr IV ONETIME ONE Stop: 12/26/18 05:24 Last Admin: 12/26/18 04:35 Dose: 100 mls/hr Sodium Chloride (Normal Saline) 1,000 mls @ 500 mls/hr IV ASDIRECTED CHRISTI Last Admin: 12/26/18 04:36 Dose: 500 mls/hr Labs: Laboratory Tests 12/26/18 12/26/18 12/26/18 Range/Units 02:10 02:10 02:10 WBC 10.0 (5.0-10.0) 10^3/uL RBC 3.77 L (4.6-6.2) 10^6/uL Hgb 11.8 L (14.0-18.0) g/dL Hct 35.0 L (40.0-54.0) % MCV 92.8 (80-100) fL MCH 31.3 (27.0-34.0) pg MCHC 33.7 (33.0-35.0) g/dL Plt Count 182 (150-450) 10^3/uL Neut % (Auto) 82.7 H (42.2-75.2) % Lymph % (Auto) 7.6 L (20.5-50.1) % [place] % (Auto) 8.1 H (2-8) % Eos % (Auto) 1.3 (1.0-3.0) % Baso % (Auto) 0.3 (0.0-1.0) % Sodium 132 L (135-145) mmol/L Potassium 2.8 L (3.6-5.0) mmol/L Chloride 94 L (101-111) mmol/L Carbon Dioxide 23.0 (21.0-31.0) mmol/L Anion Gap 17.8 BUN 14 (7-18) mg/dL Creatinine 1.1 (0.6-1.3) mg/dL Est Cr Clr Drug Dosing 65.87 mL/min Estimated GFR (MDRD) > 60 BUN/Creatinine Ratio 12.72 Glucose 69 L (74-105) mg/dL Lactic Acid 1.0 (0.5-2.2) mmol/L Calcium 9.1 (8.4-10.2) mg/dl Total Bilirubin 1.7 H (0.2-1.0) mg/dL AST 33 (10-42) IU/L ALT 20 (10-60) IU/L Alkaline Phosphatase 105 (42-121) IU/L Total Protein 7.3 (6.7-8.2) g/dl Albumin 3.4 (3.2-5.5) g/dl Globulin 3.9 Albumin/Globulin Ratio 0.87 Amylase 20 L (28-100) U/L Lipase 19 L (22-51) U/L Meds: Medications Generic Name Dose Route Start Last Admin Trade Name Freq PRN Reason Stop Dose Admin Sodium Chloride 1,000 mls @ 500 mls/hr 12/26/18 02:00 12/26/18 02:01 Normal Saline IV 500 mls/hr ASDIRECTED CHRISTI Administration Potassium Chloride 10 meq/ 100 mls @ 100 mls/hr 12/26/18 04:25 12/26/18 04:35 Premix IV 12/26/18 05:24 100 mls/hr ONETIME ONE Administration Sodium Chloride 1,000 mls @ 500 mls/hr 12/26/18 04:30 12/26/18 04:36 Normal Saline IV 500 mls/hr ASDIRECTED CHRISTI Administration Discontinued Medications Generic Name Dose Route Start Last Admin Trade Name Freq PRN Reason Stop Dose Admin Fentanyl 25 mcg 12/26/18 02:17 12/26/18 02:30 Sublimaze IVPUSH 12/26/18 02:18 25 mcg ONETIME ONE Administration Ondansetron HCl 4 mg 12/26/18 02:17 12/26/18 02:30 Zofran IV 12/26/18 02:18 4 mg ONETIME ONE Administration - Re-Assessments/Exams Free Text/Narrative Re-Assessment/Exam: 12/26/18 05:[address] Hussein @ [facility] who kindly accepted pt. Departure - Departure Time of Disposition: 05:17 Disposition: DC/Tfer to Acute Hospital 02 Condition: Poor Clinical Impression: Abdominal pain Qualifiers: Abdominal location: epigastric Qualified Code(s): R10.13 - Epigastric pain Nausea & vomiting Qualifiers: Vomiting type: unspecified Vomiting Intractability: non-intractable Qualified Code(s): R11.2 - Nausea with vomiting, unspecified Metastatic primary lung cancer Qualifiers: Laterality: left Qualified Code(s): C34.92 - Malignant neoplasm of unspecified part of left bronchus or lung - Discharge Information Forms: Interfacility Transfer EMTALA - My Orders Last 24 Hours: My Active Orders 12/26/18 01:49 CULTURE STREP A CONFIRMATION [] Stat STREP SCRN A RAPID W CULT CONF [RM] Stat 12/26/18 02:00 Sodium Chloride 0.9% [Normal Saline] 1,000 ml IV ASDIRECTED 12/26/18 02:10 CULTURE BLOOD [BC] Stat 12/26/18 03:23 Abdomen Pelvis wo Cont [CT] Urgent Chest 1V Frontal [CR] Urgent UA RFX AIMEE AND CULT IF INDIC [URIN] Stat 12/26/18 04:25 Potassium Chloride [KCl 10 MEQ in Water 100 ML] 10 meq Premix Bag 1 bag IV ONETIME 12/26/18 04:30 Sodium Chloride 0.9% [Normal Saline] 1,000 ml IV ASDIRECTED - Assessment/Plan Last 24 Hours: My Active Orders 12/26/18 01:49 CULTURE STREP A CONFIRMATION [RM] Stat STREP SCRN A RAPID W CULT CONF [RM] Stat 12/26/18 02:00 Sodium Chloride 0.9% [Normal Saline] 1,000 ml IV ASDIRECTED 12/26/18 02:10 CULTURE BLOOD [BC] Stat 12/26/18 03:23 Abdomen Pelvis wo Cont [CT] Urgent Chest 1V Frontal [CR] Urgent UA RFX AIMEE AND CULT IF INDIC [URIN] Stat 12/26/18 04:25 Potassium Chloride [KCl 10 MEQ in Water 100 ML] 10 meq Premix Bag 1 bag IV ONETIME 12/26/18 04:30 Sodium Chloride 0.9% [Normal Saline] 1,000 ml IV ASDIRECTED
[2018-12-26] MEDS ORDERED: Sodium Chloride 0.9% 1,000 ML IV SCH ×2 (02:00→04:30)
[2018-12-26] MEDS ORDERED: Ondansetron 4 MG/2 ML SDV IV ONE (02:17)
[2018-12-26] MEDS ORDERED: fentaNYL 100 MCG/2 ML SDV IVPUSH ONE (02:17)
[2018-12-26 02:33] VITALS: BP 87/58
[2018-12-26 02:38] LABS: ANION GAP 17.8; CHLORIDE,CL 94 mmol/L (101-111); SODIUM,NA 132 mmol/L (135-145)
[2018-12-26] MEDS ORDERED: Potassium Chloride 10 MEQ in Premix Bag 1 BAG IV ONE (04:25)
== END 2018-12-26 05:55 ==
LOC: DL.ED 01:09
DX: R10.13 Epigastric pain (principal); R11.2 Nausea with vomiting, unspecified; C34.92 Malignant neoplasm of unspecified part of left bronchus or lung; J44.9 Chronic obstructive pulmonary disease, unspecified; F41.9 Anxiety disorder, unspecified; F32.9 Major depressive disorder, single episode, unspecified; I10 Essential (primary) hypertension; I25.10 Atherosclerotic heart disease of native coronary artery without angina pectoris; I25.2 Old myocardial infarction; E78.00 Pure hypercholesterolemia, unspecified; Z95.0 Presence of cardiac pacemaker; Z79.899 Other long term (current) drug therapy; Z79.82 Long term (current) use of aspirin; Z88.1 Allergy status to other antibiotic agents; Z88.0 Allergy status to penicillin
CPT/HCPCS: 36415; 71045; 74176; 80053; 82150; 83605; 83690; 85025; 87040; 87081; 87430; 87804; 96361; 96365; 96375; 99285; J2405; J3010; J3480; J7030

== ENCOUNTER 2019-01-14 19:34 | Emergency (ER) | payer MEDICARE, MEDICAID ==
[2019-01-14 19:59] VITALS: BP 84/54
[2019-01-14] MEDS ORDERED: Sodium Chloride 0.9% 1,000 ML IV ONE (20:06)
--- NOTE | 2019-01-14 20:12 | EDM.PDOC ---
ED HPI GENERAL MEDICAL PROBLEM - General Chief Complaint: Back Pain or Injury Stated Complaint: PAIN IN GROIN AREA Time Seen by Provider: 01/14/19 20:07 Source of Information: Reports: Patient History Limitations: Reports: No Limitations - History of Present Illness INITIAL COMMENTS - FREE TEXT/NARRATIVE: c/o increasing numbness to left leg since falling 2 weeks ago but wasn't eval' in ER. was on hospice for lung cancer with metastasis care but not now. states always has low BP. friend states pt suppose to get MRI but nobody ordered it. Treatments STRIKE PLANNING APPLICATIONS: Reports: Other Medication(s) Other Treatments STRIKE PLANNING APPLICATIONS: oxy Left Groin Pain Score (Numeric/FACES): 10 - Related Data Allergies Allergy/AdvReac Type Severity Reaction Status Date / Time doxycycline Allergy Headache Verified 01/14/19 19:59 Penicillins Allergy Hives Verified 01/14/19 19:59 Home Meds: Home Meds Aspirin [Halfprin] 81 mg PO DAILY 01/30/14 [History] Montelukast [Singulair] 10 mg PO BEDTIME 01/30/14 [History] [place]-3 Fatty Acids [Fish Oil] 1,000 mg PO DAILY 01/30/14 [History] ALPRAZolam [Xanax] 1 mg PO BEDTIME 09/29/14 [History] Roflumilast [Daliresp] 500 mcg PO DAILY 12/23/14 [History] Mometasone Furoate [Nasonex] 2 sprays NASBOTH BID PRN 11/28/15 [History] atorvaSTATin [Lipitor] 40 mg PO BEDTIME 11/28/15 [History] Amiodarone [Cordarone] 200 mg PO DAILY 07/02/16 [History] Albuterol [Ventolin HFA] 2 puff INH Q6H PRN 08/29/18 [History] Loratadine [Claritin] 10 mg PO DAILY 08/29/18 [History] Pantoprazole Sodium [Protonix] 40 mg PO DAILY 08/29/18 [History] Sertraline [Zoloft] 50 mg PO DAILY 08/29/18 [History] buPROPion [Wellbutrin SR] 150 mg PO BID 08/29/18 [History] Albuterol [Proventil Neb Soln] 2.5 mg INH TID 10/03/18 [History] Budesonide [Pulmicort] 0.25 mg IH BID 10/03/18 [History] Carvedilol 6.25 mg PO DAILY 10/03/18 [History] Ondansetron [Zofran Odt] 8 mg PO ASDIRECTED PRN 11/21/18 [History] rOPINIRole [Requip] 0.25 mg PO BEDTIME 11/21/18 [History] Potassium Chloride 20 meq PO DAILY 3 Days #3 tab 11/23/18 [Rx] oxyCODONE 5 mg PO ASDIRECTED 01/14/19 [History] Past Medical History - Past Health History Medical/Surgical History: Denies Medical/Surgical History HEENT History: Reports: Other (See Below) Other HEENT History: fluid in right ear, also c/o ringing in the ear drum Cardiovascular History: Reports: Automatic Implantable Cardioverter Defibrillators, CAD, High Cholesterol, Hypertension, [place], Pacemaker, PTCA, Stents Respiratory History: Reports: COPD Other Respiratory History: lung cancer with mets to liver and kidney mets Gastrointestinal History: Reports: None Genitourinary History: Reports: Other (See Below) Other Genitourinary History: kidney CA Musculoskeletal History: Reports: Arthritis Other Musculoskeletal History: shoulder Neurological History: Reports: Migraines Psychiatric History: Reports: Anxiety, Depression Endocrine/Metabolic History: Reports: None Other Endocrine/Metabolic History: states was told blood sugars are ? prediabetic Hematologic History: Reports: None Immunologic History: Reports: None Oncologic (Cancer) History: Reports: Liver, Lung Other Oncologic History: Primary Lung CA with Mets to liver and kidney, Pt has port for chemo. Last chemo 11/16/18 Dermatologic History: Reports: None - Infectious Disease History Infectious Disease History: Reports: Shingles - Past Surgical History HEENT Surgical History: Reports: None Cardiovascular Surgical History: Reports: Coronary Artery Bypass Respiratory Surgical History: Reports: Lung Biopsies GI Surgical History: Reports: None Male Surgical History: Reports: None Endocrine Surgical History: Reports: None Musculoskeletal Surgical History: Reports: None Other Musculoskeletal Surgeries/Procedures:: states legs feel weak and unable to stand for long periods of time. Social & Family History - Family History Family Medical History: Noncontributory - Caffeine Use Caffeine Use: Reports: Coffee ED ROS GENERAL - Review of Systems Review Of Systems: ROS reveals no pertinent complaints other than HPI. ED EXAM,LOWER BACK PAIN/INJURY - Physical Exam Exam: See Below Exam Limited By: No Limitations General Appearance: Alert, WD/WN, Mild Distress, Other (discomfort) Ears: Hearing Grossly Normal Throat/Mouth: Normal Voice, No Airway Compromise Head: Atraumatic Neck: Non-Tender, Full Range of Motion Respiratory/Chest: No Respiratory Distress Cardiovascular: Regular Rate, Rhythm GI/Abdominal: Soft, Non-Tender Back Exam: Paraspinal Tenderness, Other (left LS region) Extremities: Limited Range of Motion Neurological: Alert, Oriented x 3 Psychiatric: Flat Affect Skin Exam: Warm, Dry, Normal Color Lymphatic: No Adenopathy Course - Vital Signs Last Recorded V/S: Last Vital Signs Temp 36.9 C 01/14/19 19:53 Pulse 84 01/14/19 19:53 Resp 16 01/14/19 19:53 BP 84/54 L 01/14/19 19:53 Pulse Ox 96 01/14/19 19:53 - Orders/Labs/Meds Labs: Laboratory Tests 01/14/19 01/14/19 Range/Units 20:11 20:11 WBC 9.3 (5.0-10.0) 10^3/uL RBC 3.51 L (4.6-6.2) 10^6/uL Hgb 11.1 L (14.0-18.0) g/dL Hct 33.6 L (40.0-54.0) % MCV 95.7 (80-100) fL MCH 31.6 (27.0-34.0) pg MCHC 33.0 (33.0-35.0) g/dL Plt Count 227 (150-450) 10^3/uL Neut % (Auto) 82.3 H (42.2-75.2) % Lymph % (Auto) 6.1 L (20.5-50.1) % [place] % (Auto) 10.2 H (2-8) % Eos % (Auto) 1.2 (1.0-3.0) % Baso % (Auto) 0.2 (0.0-1.0) % Sodium 130 L (135-145) mmol/L Potassium 3.0 L (3.6-5.0) mmol/L Chloride 92 L (101-111) mmol/L Carbon Dioxide 24.0 (21.0-31.0) mmol/L Anion Gap 17.0 BUN 13 (7-18) mg/dL Creatinine 1.2 (0.6-1.3) mg/dL Est Cr Clr Drug Dosing 62.51 mL/min Estimated GFR (MDRD) > 60 BUN/Creatinine Ratio 10.83 Glucose 97 (74-105) mg/dL Calcium 9.1 (8.4-10.2) mg/dl Total Bilirubin 0.7 (0.2-1.0) mg/dL AST 57 H (10-42) IU/L ALT 24 (10-60) IU/L Alkaline Phosphatase 123 H (42-121) IU/L Total Protein 7.1 (6.7-8.2) g/dl Albumin 3.2 (3.2-5.5) g/dl Globulin 3.9 Albumin/Globulin Ratio 0.82 Meds: Medications Discontinued Medications Generic Name Dose Route Start Last Admin Trade Name Freq PRN Reason Stop Dose Admin Fentanyl 50 mcg 01/14/19 20:33 01/14/19 20:39 Sublimaze IVPUSH 01/14/19 20:34 50 mcg ONETIME ONE Administration Sodium Chloride 1,000 mls @ 999 mls/hr 01/14/19 20:06 01/14/19 20:15 Normal Saline IV 01/14/19 21:06 999 mls/hr .BOLUS ONE Administration - Re-Assessments/Exams Free Text/Narrative Re-Assessment/Exam: 01/14/19 21:13 results discussed with pt who can now move left leg much better s/p fentanyl, 01/14/19 21:33 GF 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 pt concurred as pt is presently hesitant about anaesthesia. Departure - Departure Time of Disposition: 21:36 Disposition: Home, Self-Care 01 Condition: Fair Clinical Impression: Herniated intervertebral disc of lumbar spine, Lumbar pain - Discharge Information Instructions: Herniated Disk, [id number] Forms: ED Department Discharge Additional Instructions: 1) rest 2) call Neursurgery clinic [phone] in [place] Wednesday for appointment for herniated disk evaluation. 3) see clinic for pain meds.
[2019-01-14] MEDS ORDERED: fentaNYL 100 MCG/2 ML SDV IVPUSH ONE (20:33)
[2019-01-14 20:36] LABS: CHLORIDE,CL 92 mmol/L (101-111); SODIUM,NA 130 mmol/L (135-145)
== END 2019-01-14 22:05 | disposition home or self-care (01) ==
LOC: DL.ED 19:34
DX: M51.26 Other intervertebral disc displacement, lumbar region (principal); J44.9 Chronic obstructive pulmonary disease, unspecified; F41.9 Anxiety disorder, unspecified; F32.9 Major depressive disorder, single episode, unspecified; Z85.118 Personal history of other malignant neoplasm of bronchus and lung; Z88.1 Allergy status to other antibiotic agents; Z88.0 Allergy status to penicillin; Z79.82 Long term (current) use of aspirin; Z79.899 Other long term (current) drug therapy
CPT/HCPCS: 36415; 72131; 80053; 85025; 96365; 96375; 99284; J3010; J7030